=== PATIENT | male | born 1985 | race Caucasian/White ===

== ENCOUNTER 2019-02-07 20:57 | Inpatient (IN) | payer BC ==
[~2019-02-07 20:57] MED LIST: MVI, Adult with Vitamin K 10 ML, Folic Acid 1 MG, Thiamine 100 MG in Lactated Ringers 1... IV ONE
--- NOTE | 2019-02-07 20:59 | EDM.PDOC ---
ED HPI GENERAL MEDICAL PROBLEM - General Chief Complaint: Drug or Alcohol Abuse Stated Complaint: AMBULANCE Time Seen by Provider: 02/07/19 20:45 Source of Information: Reports: Patient History Limitations: Reports: No Limitations - History of Present Illness INITIAL COMMENTS - FREE TEXT/NARRATIVE: This 33 yo male patient was brought to the ED by [facility] due to passing out in his bathroom (according to the patient). EMS was advised that the patient did pass out, but also may have had a seizure while on the floor. The patient reports he stopped drinking last week and has been going through withdrawals since that time. The patient reports he was started on some anxiety pills within the past week. The patient reports since he stopped drinking he has been feeling very weak with no energy. The patient reports he has not had anything to eat in the past 2 days. The patient reports no current pain or problems. Onset: Today Duration: Minutes:, Improving Location: Reports: Generalized Quality: Reports: Other Severity: Moderate Improves with: Reports: None Worsens with: Reports: None Context: Reports: Other Associated Symptoms: Reports: Weakness Treatments ASSURANCE ASSOCIATE: Reports: IV/IO - Related Data Allergies Allergy/AdvReac Type Severity Reaction Status Date / Time No Known Allergies Allergy Verified 02/07/19 20:34 Home Meds: Home Meds ALPRAZolam [Alprazolam] 0.5 mg PO TID PRN 02/07/19 [History] Venlafaxine HCl [Venlafaxine ER] 75 mg PO DAILY 02/07/19 [History] Past Medical History - Past Surgical History Other GI Surgeries/Procedures: Colitis and colon surgery Social & Family History - Tobacco Use Smoking Status *Q: Never Smoker Second Hand Smoke Exposure: No - Caffeine Use Caffeine Use: Reports: Coffee - Alcohol Use Date of Last Drink: 01/31/19 - Recreational Drug Use Recreational Drug Use: No ED ROS GENERAL - Review of Systems Review Of Systems: ROS reveals no pertinent complaints other than HPI. ED EXAM, GENERAL - Physical Exam Exam: See Below Exam Limited By: No Limitations General Appearance: Alert, WD/WN, Mild Distress Eye Exam: Bilateral Eye: EOMI, Normal Inspection, PERRL Ears: Normal External Exam, Normal Canal, Hearing Grossly Normal, Normal TMs Nose: Other (dried blood from right nare) Throat/Mouth: Other (Wounds on the lateral margins of the tongue with no current bleeding) Head: Atraumatic, Normocephalic Neck: Normal Inspection, Supple, Non-Tender, Full Range of Motion Respiratory/Chest: No Respiratory Distress, Lungs Clear, Normal Breath Sounds, No Accessory Muscle Use, Chest Non-Tender Cardiovascular: Normal Peripheral Pulses, Regular Rate, Rhythm, No Edema, No Gallop, No JVD, No Murmur, No Rub GI/Abdominal: Normal Bowel Sounds, Soft, Non-Tender, No Organomegaly, No Distention, No Abnormal Bruit, No Mass (Male) Exam: Deferred Rectal (Males) Exam: Deferred Back Exam: Normal Inspection, Full Range of Motion, NT Extremities: Normal Inspection, Normal Range of Motion, Non-Tender, Normal Capillary Refill, No Pedal Edema Neurological: Alert, Oriented, CN II-XII Intact, Normal Cognition, Normal Gait, Normal Reflexes, No Motor/Sensory Deficits Psychiatric: Normal Affect, Normal Mood Skin Exam: Warm, Dry, Intact, Normal Color, No Rash Lymphatic: No Adenopathy Course - Vital Signs Last Recorded V/S: Last Vital Signs Temp 36.8 C 02/07/19 20:28 Pulse 106 H 02/07/19 20:28 Resp 23 H 02/07/19 20:28 BP 128/82 02/07/19 20:28 Pulse Ox 100 02/07/19 20:28 - Orders/Labs/Meds Labs: Laboratory Tests 02/07/19 02/07/19 02/07/19 Range/Units 21:05 21:05 21:05 WBC 6.6 (5.0-10.0) 10^3/uL RBC 5.45 (4.6-6.2) 10^6/uL Hgb 16.6 (14.0-18.0) g/dL Hct 47.0 (40.0-54.0) % MCV 86.2 (80-100) fL MCH 30.5 (27.0-34.0) pg MCHC 35.3 H (33.0-35.0) g/dL Plt Count 103 L (150-450) 10^3/uL Neut % (Auto) 89.7 H (42.2-75.2) % Lymph % (Auto) 2.6 L (20.5-50.1) % [place] % (Auto) 7.2 (2-8) % Eos % (Auto) 0.2 L (1.0-3.0) % Baso % (Auto) 0.3 (0.0-1.0) % Sodium (135-145) mmol/L Potassium (3.6-5.0) mmol/L Chloride (101-111) mmol/L Carbon Dioxide (21.0-31.0) mmol/L Anion Gap BUN (7-18) mg/dL Creatinine (0.6-1.3) mg/dL Est Cr Clr Drug Dosing mL/min Estimated GFR (MDRD) BUN/Creatinine Ratio Glucose (74-105) mg/dL Calcium (8.4-10.2) mg/dl Magnesium 2.1 (1.8-2.5) mg/dL Total Bilirubin (0.2-1.0) mg/dL AST (10-42) IU/L ALT (10-60) IU/L Alkaline Phosphatase (42-121) IU/L Ammonia 97 H (11-35) umol/L Total Protein (6.7-8.2) g/dl Albumin (3.2-5.5) g/dl Globulin Albumin/Globulin Ratio /05/21 Range/Units 21:05 WBC (5.0-10.0) 10^3/uL RBC (4.6-6.2) 10^6/uL Hgb (14.0-18.0) g/dL Hct (40.0-54.0) % MCV (80-100) fL MCH (27.0-34.0) pg MCHC (33.0-35.0) g/dL Plt Count (150-450) 10^3/uL Neut % (Auto) (42.2-75.2) % Lymph % (Auto) (20.5-50.1) % [place] % (Auto) (2-8) % Eos % (Auto) (1.0-3.0) % Baso % (Auto) (0.0-1.0) % Sodium 135 (135-145) mmol/L Potassium 3.7 (3.6-5.0) mmol/L Chloride 95 L (101-111) mmol/L Carbon Dioxide 18.0 L (21.0-31.0) mmol/L Anion Gap 25.7 BUN 12 (7-18) mg/dL Creatinine 1.1 (0.6-1.3) mg/dL Est Cr Clr Drug Dosing 110.02 mL/min Estimated GFR (MDRD) > 60 BUN/Creatinine Ratio 10.90 Glucose 180 H (74-105) mg/dL Calcium 9.3 (8.4-10.2) mg/dl Magnesium (1.8-2.5) mg/dL Total Bilirubin 3.4 H (0.2-1.0) mg/dL AST 366 H (10-42) IU/L ALT 121 H (10-60) IU/L Alkaline Phosphatase 103 (42-121) IU/L Ammonia (11-35) umol/L Total Protein 8.6 H (6.7-8.2) g/dl Albumin 4.4 (3.2-5.5) g/dl Globulin 4.2 Albumin/Globulin Ratio 1.05 Meds: Medications Discontinued Medications Generic Name Dose Route Start Last Admin Trade Name Freq PRN Reason Stop Dose Admin Multivitamins/Minerals 10 ml/ 1,011.2 mls @ 999 mls/hr 02/07/19 20:52 21:03 Folic Acid 1 mg/ Thiamine HCl IV 02/07/19 21:52 999 mls/hr 100 mg/ Lactated Ringer's ONETIME ONE Administration Lactulose 20 gm 02/07/19 22:00 Cephulac PO 02/07/19 22:01 ONETIME ONE Lorazepam 1 mg 02/07/19 22:00 Ativan IVPUSH 02/07/19 22:01 ONETIME ONE Departure - Departure Time of Disposition: 22:03 Disposition: Admitted As Inpatient 65 Condition: Fair Clinical Impression: Alcohol withdrawal delirium, Serum ammonia increased - Discharge Information *PRESCRIPTION DRUG MONITORING PROGRAM REVIEWED*: Not Applicable *COPY OF PRESCRIPTION DRUG MONITORING REPORT IN PATIENT RUDDY: Not Applicable Care Plan Goals: Discussed the patient's history, examination and lab results with Dr. Fierro. Dr. Fierro accepted the patient for continued treatment and evaluation as an inpatient at [facility]. The patient was given a Banana Bag , IV Ativan and an oral dose of lactulose prior to admission.
[2019-02-07 21:37] LABS: ANION GAP 25.7; CHLORIDE,CL 95 mmol/L (101-111); SODIUM,NA 135 mmol/L (135-145)
[2019-02-07] MEDS ORDERED: LORazepam 2 MG/ML Syringe IVPUSH ONE (22:00)
[2019-02-07] MEDS ORDERED: Lactulose Soln 10 GM/15 ML 30 ML UD Cup PO ONE (22:00)
[2019-02-07] MEDS ORDERED: Ondansetron 4 MG Tab.DIS PO PRN (22:58)
[2019-02-07] MEDS ORDERED: Acetaminophen 325 MG Tab PO PRN (22:58)
[2019-02-07] MEDS ORDERED: Ibuprofen 400 MG Tab PO PRN (22:58)
[2019-02-07] MEDS ORDERED: Sodium Chloride 0.9% 10 ML Syringe FLUSH PRN (22:58)
--- NOTE | 2019-02-07 23:09 | PCM.HP ---
H&P History of Present Illness - General Date of Service: 02/07/19 Admit Problem/Dx: Admission Diagnosis/Problem Admission Diagnosis/Problem Alcohol withdrawal seizure - History of Present Illness Initial Comments - Free Text/Narative: 33-year-old gentleman with a history of anxiety. The patient has been drinking heavily for months. Has been mostly drinking rum. The patient decided to quit alcohol use 3 days prior to this admission. He has been developing shaking, anxiety, tremor, poor appetite. On the day of admission the patient was noted to have a fall and had tonic- clonic witnessed seizure. This lasted for minutes. The patient abated the tongue. Complaining of the shoulder pain on the left side. The patient was taken to the emergency room. - Related Data Allergies/Adverse Reactions: Allergies Allergy/AdvReac Type Severity Reaction Status Date / Time No Known Allergies Allergy Verified 02/07/19 20:34 Home Medications: Home Meds ALPRAZolam [Alprazolam] 0.5 mg PO TID PRN 02/07/19 [History] Venlafaxine HCl [Venlafaxine ER] 75 mg PO DAILY 02/07/19 [History] Past Medical History - Past Surgical History Other GI Surgeries/Procedures: Colitis and colon surgery Social & Family History - Tobacco Use Smoking Status *Q: Never Smoker Second Hand Smoke Exposure: No - Caffeine Use Caffeine Use: Reports: Coffee - Alcohol Use Date of Last Drink: 01/31/19 - Recreational Drug Use Recreational Drug Use: No H&P Review of Systems - Review of Systems: Review Of Systems: See Below General: Reports: Malaise, Weakness. Denies: Fever, Chills Pulmonary: Denies: Shortness of Breath Cardiovascular: Denies: Chest Pain Gastrointestinal: Reports: Anorexia. Denies: Abdominal Pain Genitourinary: Denies: Dysuria Musculoskeletal: Reports: Shoulder Pain (Left side) Skin: Reports: Other (Sweating) Psychiatric: Reports: Anxiety. Denies: Hallucinations Neurological: Reports: Seizure, Tremors Exam - Exam Exam: See Below - Vital Signs Vital Signs: Last Vital Signs Temp 36.8 C 02/07/19 22:44 Pulse 108 H 02/07/19 22:44 Resp 20 02/07/19 22:44 BP 163/104 H 02/07/19 22:44 Pulse Ox 96 02/07/19 22:44 Weight: 83.688 kg - Exam General: Alert, Oriented HEENT: Other (Hematoma on tongue) Neck: Supple Lungs: Clear to Auscultation, Normal Respiratory Effort Cardiovascular: Regular Rate, Regular Rhythm GI/Abdominal Exam: Normal Bowel Sounds, Soft, Non-Tender Extremities: No Pedal Edema Skin: Warm, Other Neurological: Strength Equal Bilateral, Normal Speech. No: Focal Deficit Neuro Extensive - Mental Status: Alert, Oriented x3 (Sweaty) Neuro Extensive - Motor, Sensory, Reflexes: Tremor (Bilateral upper extremities) Psychiatric: Alert, Anxious. No: Agitated - Patient Data Lab Results Last 24 hrs: Laboratory Results - last 24 hr 02/07/19 02/07/19 02/07/19 Range/Units 21:05 21:05 21:05 WBC 6.6 (5.0-10.0) 10^3/uL RBC 5.45 (4.6-6.2) 10^6/uL Hgb 16.6 (14.0-18.0) g/dL Hct 47.0 (40.0-54.0) % MCV 86.2 (80-100) fL MCH 30.5 (27.0-34.0) pg MCHC 35.3 H (33.0-35.0) g/dL Plt Count 103 L (150-450) 10^3/uL Neut % (Auto) 89.7 H (42.2-75.2) % Lymph % (Auto) 2.6 L (20.5-50.1) % [place] % (Auto) 7.2 (2-8) % Eos % (Auto) 0.2 L (1.0-3.0) % Baso % (Auto) 0.3 (0.0-1.0) % Sodium (135-145) mmol/L Potassium (3.6-5.0) mmol/L Chloride (101-111) mmol/L Carbon Dioxide (21.0-31.0) mmol/L Anion Gap BUN (7-18) mg/dL Creatinine (0.6-1.3) mg/dL Est Cr Clr Drug Dosing mL/min Estimated GFR (MDRD) BUN/Creatinine Ratio Glucose (74-105) mg/dL Calcium (8.4-10.2) mg/dl Magnesium 2.1 (1.8-2.5) mg/dL Total Bilirubin (0.2-1.0) mg/dL AST (10-42) IU/L ALT (10-60) IU/L Alkaline Phosphatase (42-121) IU/L Ammonia 97 H (11-35) umol/L Total Protein (6.7-8.2) g/dl Albumin (3.2-5.5) g/dl Globulin Albumin/Globulin Ratio 02/07/19 Range/Units 21:05 WBC (5.0-10.0) 10^3/uL RBC (4.6-6.2) 10^6/uL Hgb (14.0-18.0) g/dL Hct (40.0-54.0) % MCV (80-100) fL MCH (27.0-34.0) pg MCHC (33.0-35.0) g/dL Plt Count (150-450) 10^3/uL Neut % (Auto) (42.2-75.2) % Lymph % (Auto) (20.5-50.1) % [place] % (Auto) (2-8) % Eos % (Auto) (1.0-3.0) % Baso % (Auto) (0.0-1.0) % Sodium 135 (135-145) mmol/L Potassium 3.7 (3.6-5.0) mmol/L Chloride 95 L (101-111) mmol/L Carbon Dioxide 18.0 L (21.0-31.0) mmol/L Anion Gap 25.7 BUN 12 (7-18) mg/dL Creatinine 1.1 (0.6-1.3) mg/dL Est Cr Clr Drug Dosing 110.02 mL/min Estimated GFR (MDRD) > 60 BUN/Creatinine Ratio 10.90 Glucose 180 H (74-105) mg/dL Calcium 9.3 (8.4-10.2) mg/dl Magnesium (1.8-2.5) mg/dL Total Bilirubin 3.4 H (0.2-1.0) mg/dL AST 366 H (10-42) IU/L ALT 121 H (10-60) IU/L Alkaline Phosphatase 103 (42-121) IU/L Ammonia (11-35) umol/L Total Protein 8.6 H (6.7-8.2) g/dl Albumin 4.4 (3.2-5.5) g/dl Globulin 4.2 Albumin/Globulin Ratio 1.05 Result Diagrams: 02/07/19 21:05 02/07/19 21:05 - Problem List (1) Alcohol withdrawal delirium SNOMED Code(s): 9348854 ICD Code: F10.231 - ALCOHOL DEPENDENCE WITH WITHDRAWAL DELIRIUM Status: Acute Current Visit: No (2) Serum ammonia increased SNOMED Code(s): 9275914 ICD Code: E72.20 - DISORDER OF UREA CYCLE METABOLISM, UNSPECIFIED Status: Acute Current Visit: No Problem List Initiated/Reviewed/Updated: Yes Orders Last 24hrs: Active Orders 24 hr Category Date Time Status Patient Status [ADT] Routine ADT 02/07/19 22:58 Ordered Antiembolic Devices [RC] PER UNIT ROUTINE Care 02/07/19 23:00 Ordered Oxygen Therapy [RC] PRN Care 02/07/19 22:58 Ordered Peripheral IV Care [RC] . DIRECTED Care 02/07/19 23:00 Ordered Up With Assistance [RC] ASDIRECTED Care 02/07/19 22:58 Ordered VTE/DVT Education [RC] PER UNIT ROUTINE Care 02/07/19 22:58 Ordered Vital Signs [RC] Q4H Care 02/07/19 22:58 Ordered Regular Diet [DIET] Diet 02/07/19 Breakfast Ordered Head wo Cont [CT] Routine Exams 02/07/19 22:54 Ordered Shoulder Comp Lt [CR] Routine Exams 02/07/19 23:03 Ordered AMMONIA VENOUS [CHEM] AM Lab 02/08/19 05:11 Ordered BASIC METABOLIC PANEL,BMP [CHEM] AM Lab 02/08/19 05:15 Ordered CBC WITH AUTO DIFF [HEME] AM Lab 02/08/19 05:15 Ordered HEPATIC FUNCTION PANEL,HFP [CHEM] AM Lab 02/08/19 05:11 Ordered Acetaminophen [Tylenol] Med 02/07/19 22:58 Ordered 650 mg PO Q4H PRN Dextrose 5%-Normal Saline with KCl 20 mEq @ 150 mL/Hr ( Med 02/07/19 23:00 Ordered 1000 mL) Dextrose 5%-0.9% NaCl with KCl [D5 NS with 20 mEq KCl] 1,000 ml IV ASDIRECTED Heparin Sodium Med 02/08/19 06:00 Ordered 5,000 units SUBCUT Q8HR Ibuprofen [Motrin] Med 02/07/19 22:58 Ordered 400 mg PO Q6H PRN LORazepam [Ativan] Med 02/07/19 22:56 Ordered See Protocol IVPUSH ASDIRECTED PRN LORazepam [Ativan] Med 02/07/19 22:57 Ordered See Protocol PO Q1H PRN Lactulose [Cephulac] Med 02/08/19 09:00 Ordered 20 gm PO TID MVI, Adult with Vitamin K [Infuvite Adult] 10 ml Med 02/08/19 09:00 Ordered Folic Acid 1 mg Thiamine [Vitamin B-1] 100 mg Lactated Ringers [Ringers, Lactated] 1,000 ml IV DAILY Ondansetron [Zofran ODT] Med 02/07/19 22:58 Ordered 4 mg PO Q4H PRN Ondansetron [Zofran] Med 02/07/19 22:58 Ordered 4 mg IVPUSH Q4H PRN Sodium Chloride 0.9% [Saline Flush] Med 02/07/19 22:58 Ordered 10 ml FLUSH ASDIRECTED PRN Venlafaxine [Effexor XR] Med 02/08/19 09:00 Ordered 75 mg PO DAILY Antiembolic Hose [OM.PC] Per Unit Routine Oth 02/07/19 22:59 Ordered Peripheral IV Insertion Adult [OM.PC] Routine Oth 02/07/19 22:58 Ordered Seizure Precautions [OM.PC] Routine Oth 02/07/19 22:56 Ordered Resuscitation Status Routine Resus Stat 02/07/19 22:58 Ordered Medication Orders Acetaminophen (Tylenol) 650 mg PO Q4H PRN PRN Reason: Pain (Mild 1-3)/fever Heparin Sodium (Porcine) (Heparin Sodium) 5,000 units SUBCUT Q8HR DESIREE Multivitamins/Minerals 10 ml/Folic Acid 1 mg/ Thiamine HCl 100 mg/ Lactated Ringer's 1,011.2 mls @ 999 mls/hr IV DAILY ONE Stop: 02/08/19 10:00 Potassium Chloride/Dextrose/Sod Cl (D5 Ns With 20 Meq Kcl) 1,000 mls @ 150 mls/ hr IV ASDIRECTED DESIREE Ibuprofen (Motrin) 400 mg PO Q6H PRN PRN Reason: Pain (moderate 4-6) Lactulose (Cephulac) 20 gm PO TID DESIREE Lorazepam (Ativan) 0 mg IVPUSH ASDIRECTED PRN; Protocol PRN Reason: Withdrawal Symptoms Lorazepam (Ativan) 0 mg PO Q1H PRN; Protocol PRN Reason: alcohol withdrawal Ondansetron HCl (Zofran Odt) 4 mg PO Q4H PRN PRN Reason: nausea, able to take PO Ondansetron HCl (Zofran) 4 mg IVPUSH Q4H PRN PRN Reason: Nausea/Vomiting Sodium Chloride (Saline Flush) 10 ml FLUSH ASDIRECTED PRN PRN Reason: Keep Vein Open Venlafaxine HCl (Effexor Xr) 75 mg PO DAILY DESIREE Assessment/Plan Comment:: 33-year-old gentleman with the history of anxiety, heavy drinking. The patient stopped drinking. 3 days after this the patient presented with the seizure, tremors This is likely secondary to alcohol withdrawal We'll use seizure precaution CT of the head to evaluate for possible bleed Use Ativan per CIWA protocol Hydrate well Follow electrolytes Obtain x-ray of the left shoulder to evaluate for injury Chronic alcohol use We'll give thiamine, folate, multivitamin Elevated liver enzymes Secondary to all chronic hepatitis Hydrate well Recheck liver enzymes in the morning Elevated ammonia level Likely secondary to alcohol use given lactulose Recheck in the morning Discussed alcohol treatment options with the patient DVT prophylaxis with subcutaneous heparin if no bleeding on the head CT
[2019-02-07] MEDS: LORazepam 2 MG/ML Syringe IVPUSH PRN (23:11)
[2019-02-07] MEDS: Dextrose 5%-0.9% NaCl with KCl 1,000 ML IV SCH (23:12)
[2019-02-08] MEDS: LORazepam 2 MG/ML Syringe IVPUSH PRN ×6 (01:53→23:23)
[2019-02-08] MEDS: Heparin Sodium 5,000 Units/ML Vial SUBCUT SCH ×3 (05:34→21:37)
[2019-02-08] MEDS: Dextrose 5%-0.9% NaCl with KCl 1,000 ML IV SCH ×3 (06:28→20:46)
[2019-02-08 06:42] LABS: ANION GAP 18.5; CHLORIDE,CL 99 mmol/L (101-111); SODIUM,NA 136 mmol/L (135-145)
[2019-02-08] MEDS ORDERED: MVI, Adult with Vitamin K 10 ML, Folic Acid 1 MG, Thiamine 100 MG in Lactated Ringers 1... IV ONE ×4 (09:00)
[2019-02-08] MEDS: Lactulose Soln 10 GM/15 ML 30 ML UD Cup PO SCH ×3 (09:11→20:30)
[2019-02-08] MEDS: Venlafaxine 37.5 MG Cap.ER PO SCH (09:11)
--- NOTE | 2019-02-08 10:56 | PCM.PN ---
- General Info Date of Service: 02/08/19 Subjective Update: Overnight remained stable but continued to have from tremors, sweating, anxiety. Symptoms improved with Ativan. No vomiting but poor oral intake. - Review of Systems General: Reports: Weakness. Denies: Fever Pulmonary: Denies: Shortness of Breath Cardiovascular: Denies: Chest Pain Gastrointestinal: Denies: Abdominal Pain Neurological: Reports: Tremors, Weakness Psychiatric: Reports: Hallucinations - Patient Data Vitals - Most Recent: Last Vital Signs Temp 36.3 C 02/08/19 08:20 Pulse 104 H 02/08/19 08:20 Resp 16 02/08/19 08:20 BP 161/99 H 02/08/19 08:20 Pulse Ox 98 02/08/19 08:20 Weight - Most Recent: 83.688 kg I&O - Last 24 Hours: Intake & Output 02/07/19 02/08/19 02/08/19 22:59 06:59 14:59 Intake Total 1617 Output Total 250 Balance 1367 Lab Results Last 24 Hours: Laboratory Results - last 24 hr 02/07/19 02/07/19 02/07/19 Range/Units 21:05 21:05 21:05 WBC 6.6 (5.0-10.0) 10^3/uL RBC 5.45 (4.6-6.2) 10^6/uL Hgb 16.6 (14.0-18.0) g/dL Hct 47.0 (40.0-54.0) % MCV 86.2 (80-100) fL MCH 30.5 (27.0-34.0) pg MCHC 35.3 H (33.0-35.0) g/dL Plt Count 103 L (150-450) 10^3/uL Neut % (Auto) 89.7 H (42.2-75.2) % Lymph % (Auto) 2.6 L (20.5-50.1) % Evangeline % (Auto) 7.2 (2-8) % Eos % (Auto) 0.2 L (1.0-3.0) % Baso % (Auto) 0.3 (0.0-1.0) % Sodium (135-145) mmol/L Potassium (3.6-5.0) mmol/L Chloride (101-111) mmol/L Carbon Dioxide (21.0-31.0) mmol/L Anion Gap BUN (7-18) mg/dL Creatinine (0.6-1.3) mg/dL Est Cr Clr Drug Dosing mL/min Estimated GFR (MDRD) BUN/Creatinine Ratio Glucose (74-105) mg/dL Calcium (8.4-10.2) mg/dl Magnesium 2.1 (1.8-2.5) mg/dL Total Bilirubin (0.2-1.0) mg/dL Direct Bilirubin (0.0-0.2) mg/dL Indirect Bilirubin AST (10-42) IU/L ALT (10-60) IU/L Alkaline Phosphatase (42-121) IU/L Ammonia 97 H (11-35) umol/L Total Protein (6.7-8.2) g/dl Albumin (3.2-5.5) g/dl Globulin Albumin/Globulin Ratio 02/07/19 02/08/19 02/08/19 Range/Units 21:05 06:00 06:00 WBC (5.0-10.0) 10^3/uL RBC (4.6-6.2) 10^6/uL Hgb (14.0-18.0) g/dL Hct (40.0-54.0) % MCV (80-100) fL MCH (27.0-34.0) pg MCHC (33.0-35.0) g/dL Plt Count (150-450) 10^3/uL Neut % (Auto) (42.2-75.2) % Lymph % (Auto) (20.5-50.1) % Evangeline % (Auto) (2-8) % Eos % (Auto) (1.0-3.0) % Baso % (Auto) (0.0-1.0) % Sodium 135 136 (135-145) mmol/L Potassium 3.7 3.5 L (3.6-5.0) mmol/L Chloride 95 L 99 L (101-111) mmol/L Carbon Dioxide 18.0 L 22.0 (21.0-31.0) mmol/L Anion Gap 25.7 18.5 BUN 12 15 (7-18) mg/dL Creatinine 1.1 1.1 (0.6-1.3) mg/dL Est Cr Clr Drug Dosing 110.02 110.02 mL/min Estimated GFR (MDRD) > 60 > 60 BUN/Creatinine Ratio 10.90 Glucose 180 H 140 H (74-105) mg/dL Calcium 9.3 8.7 (8.4-10.2) mg/dl Magnesium (1.8-2.5) mg/dL Total Bilirubin 3.4 H 2.7 H (0.2-1.0) mg/dL Direct Bilirubin 1.1 H (0.0-0.2) mg/dL Indirect Bilirubin 1.6 AST 366 H 306 H (10-42) IU/L ALT 121 H 109 H (10-60) IU/L Alkaline Phosphatase 103 98 (42-121) IU/L Ammonia 75 H (11-35) umol/L Total Protein 8.6 H 7.7 (6.7-8.2) g/dl Albumin 4.4 4.3 (3.2-5.5) g/dl Globulin 4.2 3.4 Albumin/Globulin Ratio 1.05 1.26 02/08/19 Range/Units 06:00 WBC 6.7 (5.0-10.0) 10^3/uL RBC 5.23 (4.6-6.2) 10^6/uL Hgb 15.9 (14.0-18.0) g/dL Hct 45.9 (40.0-54.0) % MCV 87.8 (80-100) fL MCH 30.4 (27.0-34.0) pg MCHC 34.6 (33.0-35.0) g/dL Plt Count 101 L (150-450) 10^3/uL Neut % (Auto) 79.7 H (42.2-75.2) % Lymph % (Auto) 5.3 L (20.5-50.1) % Evangeline % (Auto) 14.9 H (2-8) % Eos % (Auto) 0.0 L (1.0-3.0) % Baso % (Auto) 0.1 (0.0-1.0) % Sodium (135-145) mmol/L Potassium (3.6-5.0) mmol/L Chloride (101-111) mmol/L Carbon Dioxide (21.0-31.0) mmol/L Anion Gap BUN (7-18) mg/dL Creatinine (0.6-1.3) mg/dL Est Cr Clr Drug Dosing mL/min Estimated GFR (MDRD) BUN/Creatinine Ratio Glucose (74-105) mg/dL Calcium (8.4-10.2) mg/dl Magnesium (1.8-2.5) mg/dL Total Bilirubin (0.2-1.0) mg/dL Direct Bilirubin (0.0-0.2) mg/dL Indirect Bilirubin AST (10-42) IU/L ALT (10-60) IU/L Alkaline Phosphatase (42-121) IU/L Ammonia (11-35) umol/L Total Protein (6.7-8.2) g/dl Albumin (3.2-5.5) g/dl Globulin Albumin/Globulin Ratio Med Orders - Current: Current Medications Acetaminophen (Tylenol) 650 mg PO Q4H PRN PRN Reason: Pain (Mild 1-3)/fever Heparin Sodium (Porcine) (Heparin Sodium) 5,000 units SUBCUT Q8HR [facility] Last Admin: 02/08/19 05:34 Dose: 5,000 units Potassium Chloride/Dextrose/Sod Cl (D5 Ns With 20 Meq Kcl) 1,000 mls @ 150 mls/ hr IV ASDIRECTED [facility] Last Admin: 02/08/19 06:28 Dose: 150 mls/hr Ibuprofen (Motrin) 400 mg PO Q6H PRN PRN Reason: Pain (moderate 4-6) Lactulose (Cephulac) 20 gm PO TID [facility] Last Admin: 02/08/19 09:11 Dose: 20 gm Lorazepam (Ativan) 0 mg IVPUSH ASDIRECTED PRN; Protocol PRN Reason: Withdrawal Symptoms Last Admin: 02/08/19 10:05 Dose: 2 mg Lorazepam (Ativan) 0 mg PO Q1H PRN; Protocol PRN Reason: alcohol withdrawal Ondansetron HCl (Zofran Odt) 4 mg PO Q4H PRN PRN Reason: nausea, able to take PO Ondansetron HCl (Zofran) 4 mg IVPUSH Q4H PRN PRN Reason: Nausea/Vomiting Pantoprazole Sodium (Protonix) 40 mg PO ACBREAKFAST [facility] Potassium Chloride (Klor-Con 10) 40 meq PO ONETIME ONE Stop: 02/08/19 11:01 Sodium Chloride (Saline Flush) 10 ml FLUSH ASDIRECTED PRN PRN Reason: Keep Vein Open Venlafaxine HCl (Effexor Xr) 75 mg PO DAILY [facility] Last Admin: 02/08/19 09:11 Dose: 75 mg Discontinued Medications Multivitamins/Minerals 10 ml/Folic Acid 1 mg/ Thiamine HCl 100 mg/ Lactated Ringer's 1,011.2 mls @ 999 mls/hr IV ONETIME ONE Stop: 02/07/19 21:52 Last Admin: 02/07/19 21:03 Dose: 999 mls/hr Multivitamins/Minerals 10 ml/Folic Acid 1 mg/ Thiamine HCl 100 mg/ Lactated Ringer's 1,011.2 mls @ 999 mls/hr IV DAILY ONE Stop: 02/08/19 10:00 Last Admin: 02/08/19 09:12 Dose: 999 mls/hr Lactulose (Cephulac) 20 gm PO ONETIME ONE Stop: 02/07/19 22:01 Last Admin: 02/07/19 22:06 Dose: 20 gm Lorazepam (Ativan) 1 mg IVPUSH ONETIME ONE Stop: 02/07/19 22:01 Last Admin: 02/07/19 22:06 Dose: 1 mg - Exam General: Alert, Oriented Neck: Supple Lungs: Clear to Auscultation, Normal Respiratory Effort Cardiovascular: Regular Rate, Regular Rhythm GI/Abdominal Exam: Normal Bowel Sounds, Soft, Non-Tender Extremities: No Pedal Edema Skin: Warm Neurological: No New Focal Deficit, Other (Tremors) Psy/Mental Status: Alert, Anxious - Problem List & Annotations (1) Alcohol withdrawal delirium SNOMED Code(s): 4785714 Code(s): F10.231 - ALCOHOL DEPENDENCE WITH WITHDRAWAL DELIRIUM Status: Acute Current Visit: No (2) Serum ammonia increased SNOMED Code(s): 2933884 Code(s): E72.20 - DISORDER OF UREA CYCLE METABOLISM, UNSPECIFIED Status: Acute Current Visit: No - Problem List Review Problem List Initiated/Reviewed/Updated: Yes - My Orders Last 24 Hours: My Active Orders 02/07/19 22:56 LORazepam [Ativan] See Protocol IVPUSH ASDIRECTED PRN Seizure Precautions [OM.PC] Routine 02/07/19 22:57 LORazepam [Ativan] See Protocol PO Q1H PRN 02/07/19 22:58 Patient Status [ADT] Routine Oxygen Therapy [RC] PRN Up With Assistance [RC] ASDIRECTED VTE/DVT Education [RC] PER UNIT ROUTINE Vital Signs [RC] Q4H Acetaminophen [Tylenol] 650 mg PO Q4H PRN Ibuprofen [Motrin] 400 mg PO Q6H PRN Ondansetron [Zofran ODT] 4 mg PO Q4H PRN Ondansetron [Zofran] 4 mg IVPUSH Q4H PRN Sodium Chloride 0.9% [Saline Flush] 10 ml FLUSH ASDIRECTED PRN Peripheral IV Insertion Adult [OM.PC] Routine Resuscitation Status Routine 02/07/19 22:59 Antiembolic Hose [OM.PC] Per Unit Routine 02/07/19 23:00 Antiembolic Devices [RC] PER UNIT ROUTINE Peripheral IV Care [RC] 09,21 Dextrose 5%-0.9% NaCl with KCl [D5 NS with 20 mEq KCl] 1,000 ml IV ASDIRECTED 02/08/19 06:00 Heparin Sodium 5,000 units SUBCUT Q8HR 02/08/19 09:00 Lactulose [Cephulac] 20 gm PO TID Venlafaxine [Effexor XR] 75 mg PO DAILY 02/08/19 10:48 Potassium Chloride [Klor-Con 10] 40 meq PO ONETIME ONE 02/08/19 10:53 HEPATIC FUNCTION PANEL,HFP [CHEM] Routine 02/08/19 11:00 Pantoprazole [ProTONIX] 40 mg PO ACBREAKFAST 02/09/19 05:11 MAGNESIUM [CHEM] AM PHOSPHORUS [CHEM] AM 02/09/19 05:15 BASIC METABOLIC PANEL,BMP [CHEM] AM CBC WITH AUTO DIFF [HEME] AM - Plan Plan:: 33-year-old gentleman with the history of anxiety, heavy drinking. The patient stopped drinking. 3 days after this the patient presented with the seizure, tremors This is likely secondary to alcohol withdrawal We'll use seizure precaution CT of the head to evaluate for possible bleed was negative Use Ativan per CIWA protocol Hydrate well Follow electrolytes Obtained x-ray of the left shoulder to evaluate for injury was negative Chronic alcohol use We'll give thiamine, folate, multivitamin Elevated liver enzymes Secondary to alcoholic hepatitis Hydrate well Follow liver enzymes in the morning Elevated ammonia level Likely secondary to alcohol use Improving Continue lactulose Discussed alcohol treatment options with the patient DVT prophylaxis with subcutaneous heparin
[2019-02-08] MEDS ORDERED: Potassium Chloride 10 MEQ Tab.ER PO ONE (11:00)
[2019-02-08] MEDS: Pantoprazole 40 MG Tab.CR PO SCH (12:01)
[2019-02-08] MEDS: Ondansetron 4 MG/2 ML SDV IVPUSH PRN ×2 (17:03→23:20)
[2019-02-08] MEDS: LORazepam 1 MG Tab PO PRN (20:30)
[2019-02-08] MEDS: cloNIDine 0.1 MG Tab PO SCH (20:44)
[2019-02-09] MEDS: LORazepam 1 MG Tab PO PRN ×2 (00:57→03:21)
[2019-02-09] MEDS: Dextrose 5%-0.9% NaCl with KCl 1,000 ML IV SCH ×2 (03:22→10:21)
[2019-02-09] MEDS: LORazepam 2 MG/ML Syringe IVPUSH PRN ×7 (04:21→15:43)
[2019-02-09] MEDS: Pantoprazole 40 MG Tab.CR PO SCH (05:08)
[2019-02-09] MEDS: Heparin Sodium 5,000 Units/ML Vial SUBCUT SCH ×3 (05:09→16:24)
[2019-02-09 06:48] LABS: CHLORIDE,CL 104 mmol/L (101-111); SODIUM,NA 137 mmol/L (135-145)
[2019-02-09] MEDS: cloNIDine 0.1 MG Tab PO SCH ×2 (07:54→08:02)
[2019-02-09] MEDS: Venlafaxine 37.5 MG Cap.ER PO SCH ×2 (07:55→08:03)
[2019-02-09] MEDS: Lactulose Soln 10 GM/15 ML 30 ML UD Cup PO SCH ×3 (07:55→13:41)
[2019-02-09] MEDS ORDERED: Phosphorus #1 250 MG Tab PO SCH (13:00)
--- NOTE | 2019-02-09 15:31 | PCM.DCSUM1 ---
Discharge Summary - Hospital Course Free Text/Narrative:: 33-year-old gentleman with a history of anxiety. The patient has been drinking heavily for months. Has been mostly drinking rum. The patient decided to quit alcohol use 3 days prior to this admission. He has been developing shaking, anxiety, tremor, poor appetite. On the day of admission the patient was noted to have a fall and had tonic- clonic witnessed seizure. This lasted for minutes. The patient bit the tongue. seizure, tremors, hallucination This is likely secondary to alcohol withdrawal no further seizure since admission CT of the head to evaluate for possible bleed was negative Has been treated with Ativan per [facility] protocol Hydrated with IV fluids Electrolytes replaced Obtained x-ray of the left shoulder to evaluate for injury was negative Chronic alcohol use We'll give thiamine, folate, multivitamin Elevated liver enzymes Secondary to alcoholic hepatitis Hydrate well Elevated ammonia level Likely secondary to alcohol use Improved Continue lactulose INR was normal, no apparent fulminant liver failure Discussed alcohol treatment options with the patient's Had evaluation by [facility] Plan for transfer to [facility] for comprehensive alcohol treatment program. DVT prophylaxis with subcutaneous heparin Diagnosis: Stroke: No - Discharge Data Discharge Date: 02/09/19 Discharge Disposition: DC/Tfer to Acute Hospital 02 Condition: Fair - Discharge Diagnosis/Problem(s) (1) Alcohol withdrawal delirium SNOMED Code(s): 7257025 ICD Code: F10.231 - ALCOHOL DEPENDENCE WITH WITHDRAWAL DELIRIUM Status: Acute Current Visit: No (2) Serum ammonia increased SNOMED Code(s): 0573422 ICD Code: E72.20 - DISORDER OF UREA CYCLE METABOLISM, UNSPECIFIED Status: Acute Current Visit: No - Patient Instructions Diet: Usual Diet as Tolerated Activity: As Tolerated - Discharge Plan *PRESCRIPTION DRUG MONITORING PROGRAM REVIEWED*: Not Applicable *COPY OF PRESCRIPTION DRUG MONITORING REPORT IN PATIENT RUDDY: Not Applicable Home Medications: Home Meds Venlafaxine HCl [Venlafaxine ER] 75 mg PO DAILY 02/07/19 [History] Dextrose 5%-0.9% NaCl with KCl [D5 NS with 20 mEq KCl] 125 ml IV ASDIRECTED bag 02/09/19 [Rx] Heparin Sodium 5,000 units SUBCUT Q8HR vial 02/09/19 [Rx] LORazepam [Ativan] 0 mg IVPUSH ASDIRECTED PRN syringe 02/09/19 [Rx] LORazepam [Ativan] 0 mg PO Q1H PRN tablet 02/09/19 [Rx] Lactulose [Cephulac] 20 gm PO TID cup 02/09/19 [Rx] Magnesium Oxide 250 mg PO TID tablet 02/09/19 [Rx] Pantoprazole [ProTONIX] 40 mg PO ACBREAKFAST tab.cr 02/09/19 [Rx] Phosphorus #1 [Neutra-Phos] 250 mg PO QID tablet 02/09/19 [Rx] cloNIDine [Catapres] 0.1 mg PO BID tablet 02/09/19 [Rx] Oxygen Therapy Mode: Room Air Patient Handouts: Delirium Tremens, [id number] - Discharge Summary/Plan Comment DC Time >30 min.: Yes (Discussed with [facility] services, , [facility] dr. Lerma) - General Info Date of Service: 02/09/19 Subjective Update: Overnight remained stable but continued to have from tremors, sweating, anxiety. Had visual and auditory hallucinations. Symptoms improved with Ativan. - Review of Systems General: Denies: Fever Pulmonary: Denies: Shortness of Breath Cardiovascular: Denies: Chest Pain Gastrointestinal: Denies: Abdominal Pain Neurological: Reports: Confusion, Tremors, Weakness - Patient Data Vitals - Most Recent: Last Vital Signs Temp 36.4 C 02/09/19 12:00 Pulse 109 H 02/09/19 12:00 Resp 20 02/09/19 12:00 BP 141/105 H 02/09/19 12:00 Pulse Ox 94 L 02/09/19 12:00 Weight - Most Recent: 83.688 kg I&O - Last 24 hours: Intake & Output 02/09/19 02/09/19 02/09/19 06:59 14:59 22:59 Intake Total 3691 400 Balance 3691 400 Lab Results - Last 24 hrs: Laboratory Results - last 24 hr 02/09/19 02/09/19 02/09/19 Range/Units 05:36 05:36 05:36 WBC 4.7 L (5.0-10.0) 10^3/uL RBC 5.11 (4.6-6.2) 10^6/uL Hgb 15.5 (14.0-18.0) g/dL Hct 45.9 (40.0-54.0) % MCV 89.8 (80-100) fL MCH 30.3 (27.0-34.0) pg MCHC 33.8 (33.0-35.0) g/dL Plt Count 101 L (150-450) 10^3/uL Neut % (Auto) 69.7 (42.2-75.2) % Lymph % (Auto) 13.5 L (20.5-50.1) % Cooper % (Auto) 15.8 H (2-8) % Eos % (Auto) 0.8 L (1.0-3.0) % Baso % (Auto) 0.2 (0.0-1.0) % PT (9.0-12.0) SEC INR (0.9-1.2) Sodium 137 (135-145) mmol/L Potassium 4.0 (3.6-5.0) mmol/L Chloride 104 (101-111) mmol/L Carbon Dioxide 20.0 L (21.0-31.0) mmol/L Anion Gap 17.0 BUN 12 (7-18) mg/dL Creatinine 0.8 (0.6-1.3) mg/dL Est Cr Clr Drug Dosing 151.27 mL/min Estimated GFR (MDRD) > 60 Glucose 122 H (74-105) mg/dL Calcium 8.6 (8.4-10.2) mg/dl Phosphorus 1.9 L (2.5-4.6) mg/dL Magnesium 1.7 L (1.8-2.5) mg/dL Total Bilirubin 2.7 H (0.2-1.0) mg/dL Direct Bilirubin 1.1 H (0.0-0.2) mg/dL Indirect Bilirubin 1.6 AST 207 H (10-42) IU/L ALT 91 H (10-60) IU/L Alkaline Phosphatase 78 (42-121) IU/L Total Protein 7.6 (6.7-8.2) g/dl Albumin 3.9 (3.2-5.5) g/dl Globulin 3.7 Albumin/Globulin Ratio 1.05 /07/21 Range/Units 05:36 WBC (5.0-10.0) 10^3/uL RBC (4.6-6.2) 10^6/uL Hgb (14.0-18.0) g/dL Hct (40.0-54.0) % MCV (80-100) fL MCH (27.0-34.0) pg MCHC (33.0-35.0) g/dL Plt Count (150-450) 10^3/uL Neut % (Auto) (42.2-75.2) % Lymph % (Auto) (20.5-50.1) % Cooper % (Auto) (2-8) % Eos % (Auto) (1.0-3.0) % Baso % (Auto) (0.0-1.0) % PT 11.1 (9.0-12.0) SEC INR 1.1 (0.9-1.2) Sodium (135-145) mmol/L Potassium (3.6-5.0) mmol/L Chloride (101-111) mmol/L Carbon Dioxide (21.0-31.0) mmol/L Anion Gap BUN (7-18) mg/dL Creatinine (0.6-1.3) mg/dL Est Cr Clr Drug Dosing mL/min Estimated GFR (MDRD) Glucose (74-105) mg/dL Calcium (8.4-10.2) mg/dl Phosphorus (2.5-4.6) mg/dL Magnesium (1.8-2.5) mg/dL Total Bilirubin (0.2-1.0) mg/dL Direct Bilirubin (0.0-0.2) mg/dL Indirect Bilirubin AST (10-42) IU/L ALT (10-60) IU/L Alkaline Phosphatase (42-121) IU/L Total Protein (6.7-8.2) g/dl Albumin (3.2-5.5) g/dl Globulin Albumin/Globulin Ratio Med Orders - Current: Current Medications Acetaminophen (Tylenol) 650 mg PO Q4H PRN PRN Reason: Pain (Mild 1-3)/fever Clonidine HCl (Catapres) 0.1 mg PO BID [facility] Last Admin: 02/09/19 08:02 Dose: Not Given Heparin Sodium (Porcine) (Heparin Sodium) 5,000 units SUBCUT Q8HR [facility] Last Admin: 02/09/19 13:41 Dose: 5,000 units Potassium Chloride/Dextrose/Sod Cl (D5 Ns With 20 Meq Kcl) 1,000 mls @ 150 mls/ hr IV ASDIRECTED [facility] Last Admin: 02/09/19 10:21 Dose: 150 mls/hr Ibuprofen (Motrin) 400 mg PO Q6H PRN PRN Reason: Pain (moderate 4-6) Lactulose (Cephulac) 20 gm PO TID [facility] Last Admin: 02/09/19 13:41 Dose: 20 gm Lorazepam (Ativan) 0 mg IVPUSH ASDIRECTED PRN; Protocol PRN Reason: Withdrawal Symptoms Last Admin: 02/09/19 13:43 Dose: 1 mg Lorazepam (Ativan) 0 mg PO Q1H PRN; Protocol PRN Reason: alcohol withdrawal Last Admin: 02/09/19 03:21 Dose: 1 mg Magnesium Oxide (Magnesium Oxide) 250 mg PO TID [facility] Stop: 02/09/19 21:01 Last Admin: 02/09/19 13:41 Dose: 250 mg Ondansetron HCl (Zofran Odt) 4 mg PO Q4H PRN PRN Reason: nausea, able to take PO Ondansetron HCl (Zofran) 4 mg IVPUSH Q4H PRN PRN Reason: Nausea/Vomiting Last Admin: 02/08/19 23:20 Dose: 4 mg Pantoprazole Sodium (Protonix) 40 mg PO ACBREAKFAST [facility] Last Admin: 02/09/19 05:08 Dose: 40 mg Sodium Chloride (Saline Flush) 10 ml FLUSH ASDIRECTED PRN PRN Reason: Keep Vein Open Sodium Phosphate (Neutra-Phos) 250 mg PO QID [facility] Stop: 02/10/19 09:01 Last Admin: 02/09/19 11:59 Dose: 250 mg Venlafaxine HCl (Effexor Xr) 75 mg PO DAILY [facility] Last Admin: 02/09/19 08:03 Dose: Not Given Discontinued Medications Multivitamins/Minerals 10 ml/Folic Acid 1 mg/ Thiamine HCl 100 mg/ Lactated Ringer's 1,011.2 mls @ 999 mls/hr IV ONETIME ONE Stop: 02/07/19 21:52 Last Admin: 02/07/19 21:03 Dose: 999 mls/hr Multivitamins/Minerals 10 ml/Folic Acid 1 mg/ Thiamine HCl 100 mg/ Lactated Ringer's 1,011.2 mls @ 999 mls/hr IV DAILY ONE Stop: 02/08/19 10:00 Last Admin: 02/08/19 09:12 Dose: 999 mls/hr Lactulose (Cephulac) 20 gm PO ONETIME ONE Stop: 02/07/19 22:01 Last Admin: 02/07/19 22:06 Dose: 20 gm Lorazepam (Ativan) 1 mg IVPUSH ONETIME ONE Stop: 02/07/19 22:01 Last Admin: 02/07/19 22:06 Dose: 1 mg Potassium Chloride (Klor-Con 10) 40 meq PO ONETIME ONE Stop: 02/08/19 11:01 Last Admin: 02/08/19 12:01 Dose: 40 meq - Exam General: Reports: Alert, Oriented (Periodically) Neck: Reports: Supple Lungs: Reports: Clear to Auscultation, Normal Respiratory Effort GI/Abdominal Exam: Soft, Non-Tender Extremities: No Pedal Edema Skin: Reports: Warm, Dry Psy/Mental Status: Reports: Alert, Anxious, Hallucinations
== END 2019-02-09 16:00 | DRG 775 ==
LOC: DL.ED 20:57 → UNDOADMOB 22:22 → DL.MS 22:22 → INTOOBSV 22:22 → DL.MS 22:58 → OBSVTOIN 02-08 12:36
PROVIDERS: ADMIT Internal Medicine; ATTEND Internal Medicine
PROC: HZ2ZZZZ Detoxification Services for Substance Abuse Treatment (ICD-10-PCS; principal; 2019-02-08)
DX: F10.231 Alcohol dependence with withdrawal delirium (principal); G40.409 Other generalized epilepsy and epileptic syndromes, not intractable, without status epilepticus; F41.9 Anxiety disorder, unspecified; E72.20 Disorder of urea cycle metabolism, unspecified; R25.1 Tremor, unspecified; R74.8 Abnormal levels of other serum enzymes; K70.10 Alcoholic hepatitis without ascites; F10.29 Alcohol dependence with unspecified alcohol-induced disorder; Z79.899 Other long term (current) drug therapy; W19.XXXA Unspecified fall, initial encounter
CPT/HCPCS: 36415; 70450; 73030-LT; 80048; 80053; 80076; 82140; 83735; 84100; 85025; 85610; 96361; 96365; 96366; 96372; 96375; 96376; 99285-25; A9270-GY; G0378; J1644; J2060; J2405; J3411; J3480; J3490; J7120

== ENCOUNTER 2019-03-30 17:03 | Observation (INO) | payer BC ==
[2019-03-30] MEDS ORDERED: MVI, Adult with Vitamin K 10 ML, Folic Acid 1 MG, Thiamine 100 MG in Lactated Ringers 1... IV ONE ×4 (17:19)
--- NOTE | 2019-03-30 17:31 | EDM.PDOC ---
ED HPI GENERAL MEDICAL PROBLEM - General Chief Complaint: General Stated Complaint: UNK Time Seen by Provider: 03/30/19 17:30 Source of Information: Reports: Patient History Limitations: Reports: No Limitations - History of Present Illness INITIAL COMMENTS - FREE TEXT/NARRATIVE: ED ambulatory with family, with ETOH withdrawal. Patient Recently completed 30 day inpatient treatment, Seeing outpatient counselor. Out of treatment on Tuesday drank 1.75L rum on . Weak today. Prior to treatment patient initially hospitalized here with withdrawal sx, Increased CIWAA and seizure. Transferred to [facility] and in ICU. - Related Data Allergies Allergy/AdvReac Type Severity Reaction Status Date / Time No Known Allergies Allergy Verified 02/07/19 20:34 Home Meds: Home Meds Venlafaxine HCl [Venlafaxine ER] 75 mg PO DAILY 02/07/19 [History] CIWAA - CIWAA CIWAA Nausea And Vomitin - Mild Nausea with No Vomiting CIWAA Tremor: 3 CIWAA Paroxysmal Sweats: 1 - Barely Perceptible Sweating, Palms Moist CIWAA Anxiety: 4 - Moderately Anxious, or Guarded, so Anxiety is Inferred CIWAA Agitation: 4 - Moderately Fidgety and Restless CIWAA Tactile Disturbances: 0 - None CIWAA Auditory Disturbances: 0 - Not Present CIWAA Visual Disturbances: 0 - Not Present CIWAA Headache, Fullness in Head: 1 - Very Mild CIWAA Orientation And Clouding Of Sensorium: 0 - Oriented and Can do Serial Additions CIWAA Scale Score: 14 Past Medical History - Past Surgical History Other GI Surgeries/Procedures: Colitis and colon surgery Social & Family History - Family History Family Medical History: Noncontributory - Caffeine Use Caffeine Use: Reports: Coffee ED ROS GENERAL - Review of Systems Review Of Systems: See Below Constitutional: Reports: Weakness HEENT: Reports: No Symptoms Cardiovascular: Reports: No Symptoms Endocrine: Reports: No Symptoms GI/Abdominal: Reports: Anorexia, Decreased Appetite Musculoskeletal: Reports: No Symptoms Skin: Reports: Diaphoresis Neurological: Denies: Tremors Psychiatric: Reports: Anxiety, Cravings ED EXAM, GENERAL - Physical Exam Exam: See Below Exam Limited By: No Limitations General Appearance: Alert, Anxious, Moderate Distress Eye Exam: Bilateral Eye: EOMI, Nystagmus Ears: Normal External Exam, Normal TMs Nose: Normal Inspection Throat/Mouth: Normal Inspection Head: Atraumatic, Normocephalic Neck: Normal Inspection Respiratory/Chest: No Respiratory Distress, Lungs Clear, Normal Breath Sounds Cardiovascular: Normal Peripheral Pulses, Regular Rate, Rhythm, No Edema GI/Abdominal: Normal Bowel Sounds, Soft. No: Distended, Guarding Extremities: Normal Inspection Neurological: Alert, Oriented, Normal Cognition Psychiatric: Anxious Skin Exam: Intact, Normal Color, Other (palms diaphoretic, CIWAA 12) Course - Vital Signs Last Recorded V/S: Last Vital Signs Temp 99.3 F 03/31/19 08:00 Pulse 63 03/31/19 08:00 Resp 18 03/31/19 08:00 BP 149/106 H 03/31/19 08:00 Pulse Ox 99 03/31/19 08:00 - Orders/Labs/Meds Orders: Medication Orders Heparin Sodium (Porcine) (Heparin Sodium) 5,000 units SUBCUT Q8HR [facility] Last Admin: 03/31/19 05:37 Dose: Not Given Admin: 03/30/19 21:29 Dose: Not Given Lorazepam (Ativan) 0 mg PO ASDIRECTED PRN; Protocol PRN Reason: Withdrawal Symptoms Last Admin: 03/31/19 08:10 Dose: 1 mg Lorazepam (Ativan) 0 mg IVPUSH ASDIRECTED PRN; Protocol PRN Reason: Withdrawal Symptoms Ondansetron HCl (Zofran Odt) 4 mg PO Q4H PRN PRN Reason: nausea, able to take PO Ondansetron HCl (Zofran) 4 mg IVPUSH Q4H PRN PRN Reason: Nausea/Vomiting Venlafaxine HCl (Effexor Xr) 75 mg PO DAILY [facility] Last Admin: 03/31/19 08:11 Dose: 75 mg Labs: Laboratory Tests 03/30/19 03/30/19 03/30/19 Range/Units 17:29 17:29 17:29 WBC 6.8 (5.0-10.0) 10^3/uL RBC 5.59 (4.6-6.2) 10^6/uL Hgb 16.9 (14.0-18.0) g/dL Hct 47.9 (40.0-54.0) % MCV 85.7 D (80-100) fL MCH 30.2 (27.0-34.0) pg MCHC 35.3 H (33.0-35.0) g/dL Plt Count 155 (150-450) 10^3/uL Neut % (Auto) 68.2 (42.2-75.2) % Lymph % (Auto) 22.9 (20.5-50.1) % [place] % (Auto) 7.2 (2-8) % Eos % (Auto) 1.3 (1.0-3.0) % Baso % (Auto) 0.4 (0.0-1.0) % Sodium 137 (135-145) mmol/L Potassium 3.6 (3.6-5.0) mmol/L Chloride 101 (101-111) mmol/L Carbon Dioxide 23.0 (21.0-31.0) mmol/L Anion Gap 16.6 BUN 7 (7-18) mg/dL Creatinine 0.8 (0.6-1.3) mg/dL Est Cr Clr Drug Dosing 151.27 mL/min Estimated GFR (MDRD) > 60 BUN/Creatinine Ratio 8.75 Glucose 105 (74-105) mg/dL Calcium 9.8 (8.4-10.2) mg/dl Total Bilirubin 1.0 (0.2-1.0) mg/dL AST 45 H (10-42) IU/L ALT 33 (10-60) IU/L Alkaline Phosphatase 77 (42-121) IU/L Ammonia 35 (11-35) umol/L Total Protein 7.9 (6.7-8.2) g/dl Albumin 4.2 (3.2-5.5) g/dl Globulin 3.7 Albumin/Globulin Ratio 1.14 Amylase 96 (28-100) U/L Lipase 43 (22-51) U/L Ethyl Alcohol < 5 mg/dL Meds: Medications Generic Name Dose Route Start Last Admin Trade Name Freq PRN Reason Stop Dose Admin Heparin Sodium (Porcine) 5,000 units 03/30/19 22:00 03/31/19 05:37 Heparin Sodium SUBCUT Not Given Q8HR DESIREE Lorazepam 0 mg 03/30/19 19:13 03/31/19 08:10 Ativan PO 1 mg ASDIRECTED PRN Administration Withdrawal Symptoms Protocol Lorazepam 0 mg 03/30/19 19:13 Ativan IVPUSH ASDIRECTED PRN Withdrawal Symptoms Protocol Ondansetron HCl 4 mg 03/30/19 19:13 Zofran Odt PO Q4H PRN nausea, able to take PO Ondansetron HCl 4 mg 03/30/19 19:13 Zofran IVPUSH Q4H PRN Nausea/Vomiting Venlafaxine HCl 75 mg 03/31/19 09:00 03/31/19 08:11 Effexor Xr PO 75 mg DAILY DESIREE Administration Discontinued Medications Generic Name Dose Route Start Last Admin Trade Name Freq PRN Reason Stop Dose Admin Multivitamins/Minerals 10 ml/ 1,011.2 mls @ 999 mls/hr 03/30/19 17:19 19:11 Folic Acid 1 mg/ Thiamine HCl IV 03/30/19 18:19 Infused 100 mg/ Lactated Ringer's ONETIME ONE Infusion Lorazepam 1 mg 03/30/19 18:08 03/30/19 18:14 Ativan IVPUSH 03/30/19 18:09 1 mg ONETIME ONE Administration - Re-Assessments/Exams Free Text/Narrative Re-Assessment/Exam: 03/31/19 09:45 Dr Otto accepting patient for admission. Departure - Departure Time of Disposition: 20:09 Disposition: Refer to Observation Condition: Good Clinical Impression: Alcohol withdrawal Qualifiers: Complication of substance-induced condition: uncomplicated Qualified Code(s): F10.230 - Alcohol dependence with withdrawal, uncomplicated - Discharge Information *PRESCRIPTION DRUG MONITORING PROGRAM REVIEWED*: No *COPY OF PRESCRIPTION DRUG MONITORING REPORT IN PATIENT RUDDY: No
[2019-03-30 18:08] LABS: ANION GAP 16.6; CHLORIDE,CL 101 mmol/L (101-111); SODIUM,NA 137 mmol/L (135-145)
[2019-03-30] MEDS ORDERED: LORazepam 2 MG/ML Syringe IVPUSH ONE (18:08)
[2019-03-30] MEDS ORDERED: Ondansetron 4 MG Tab.DIS PO PRN (19:13)
[2019-03-30] MEDS ORDERED: LORazepam 2 MG/ML Syringe IVPUSH PRN (19:13)
[2019-03-30] MEDS ORDERED: Ondansetron 4 MG/2 ML SDV IVPUSH PRN (19:13)
[2019-03-30] MEDS ORDERED: LORazepam 1 MG Tab PO PRN (19:13)
--- NOTE | 2019-03-30 19:24 | PCM.HP ---
H&P History of Present Illness - General Date of Service: 03/30/19 Admit Problem/Dx: Admission Diagnosis/Problem Admission Diagnosis/Problem Alcohol withdrawal syndrome - History of Present Illness Initial Comments - Free Text/Narative: 33-year-old gentleman with past medical history significant for alcohol abuse that complicated by withdrawal seizure that required ICU stay and intubation proximately one month ago, recent discharge from alcohol rehabilitation presented to the emergency room with 2 day history of heavy alcohol drinking alcohol withdrawal symptoms. Patient said that he drank a bottle of rum that was 1.75 L over 2 days, last drink was last evening. Started developing alcohol withdrawal symptoms today to present to the emergency room for further care. Patient said that his withdrawal symptoms are not as severe as last time. He denied any visual auditory hallucinations. He denied any other complaints. - Related Data Allergies/Adverse Reactions: Allergies Allergy/AdvReac Type Severity Reaction Status Date / Time No Known Allergies Allergy Verified 02/07/19 20:34 Home Medications: Home Meds Venlafaxine HCl [Venlafaxine ER] 75 mg PO DAILY 02/07/19 [History] Past Medical History - Past Health History Medical/Surgical History: Denies Medical/Surgical History Psychiatric History: Reports: Anxiety - Past Surgical History Other GI Surgeries/Procedures: Colitis and colon surgery Social & Family History - Family History Family Medical History: Noncontributory - Tobacco Use Smoking Status *Q: Never Smoker - Caffeine Use Caffeine Use: Reports: Coffee - Recreational Drug Use Recreational Drug Use: No H&P Review of Systems - Review of Systems: Review Of Systems: See Below General: Reports: No Symptoms HEENT: Reports: No Symptoms Pulmonary: Reports: No Symptoms Cardiovascular: Reports: No Symptoms Gastrointestinal: Reports: No Symptoms Genitourinary: Reports: No Symptoms Musculoskeletal: Reports: No Symptoms Skin: Reports: No Symptoms Psychiatric: Reports: No Symptoms Neurological: Reports: Tremors Hematologic/Lymphatic: Reports: No Symptoms Immunologic: Reports: No Symptoms Exam - Exam Exam: See Below - Vital Signs Vital Signs: Last Vital Signs Temp 36.2 C 03/30/19 17:13 Pulse 78 03/30/19 17:13 Resp 16 03/30/19 17:13 BP 156/82 H 03/30/19 17:13 Pulse Ox 100 03/30/19 17:13 Weight: 87.906 kg - Exam General: Alert, Oriented Lungs: Clear to Auscultation Cardiovascular: Regular Rate, Regular Rhythm GI/Abdominal Exam: Normal Bowel Sounds, Soft, Non-Tender Skin: Warm, Dry, Intact Neurological: Other (Tremors on extension of arms) Neuro Extensive - Mental Status: Alert, Oriented x3 Psychiatric: Alert, Normal Affect, Normal Mood - Patient Data Lab Results Last 24 hrs: Laboratory Results - last 24 hr 03/30/19 03/30/19 03/30/19 Range/Units 17:29 17:29 17:29 WBC 6.8 (5.0-10.0) 10^3/uL RBC 5.59 (4.6-6.2) 10^6/uL Hgb 16.9 (14.0-18.0) g/dL Hct 47.9 (40.0-54.0) % MCV 85.7 D (80-100) fL MCH 30.2 (27.0-34.0) pg MCHC 35.3 H (33.0-35.0) g/dL Plt Count 155 (150-450) 10^3/uL Neut % (Auto) 68.2 (42.2-75.2) % Lymph % (Auto) 22.9 (20.5-50.1) % [place] % (Auto) 7.2 (2-8) % Eos % (Auto) 1.3 (1.0-3.0) % Baso % (Auto) 0.4 (0.0-1.0) % Sodium 137 (135-145) mmol/L Potassium 3.6 (3.6-5.0) mmol/L Chloride 101 (101-111) mmol/L Carbon Dioxide 23.0 (21.0-31.0) mmol/L Anion Gap 16.6 BUN 7 (7-18) mg/dL Creatinine 0.8 (0.6-1.3) mg/dL Est Cr Clr Drug Dosing 151.27 mL/min Estimated GFR (MDRD) > 60 BUN/Creatinine Ratio 8.75 Glucose 105 (74-105) mg/dL Calcium 9.8 (8.4-10.2) mg/dl Total Bilirubin 1.0 (0.2-1.0) mg/dL AST 45 H (10-42) IU/L ALT 33 (10-60) IU/L Alkaline Phosphatase 77 (42-121) IU/L Ammonia 35 (11-35) umol/L Total Protein 7.9 (6.7-8.2) g/dl Albumin 4.2 (3.2-5.5) g/dl Globulin 3.7 Albumin/Globulin Ratio 1.14 Amylase 96 (28-100) U/L Lipase 43 (22-51) U/L Ethyl Alcohol < 5 mg/dL Result Diagrams: 03/30/19 17:29 03/30/19 17:29 Problem List Initiated/Reviewed/Updated: Yes Orders Last 24hrs: Active Orders 24 hr Category Date Time Status Patient Status [ADT] Routine ADT 03/30/19 19:13 Ordered Oxygen Therapy [RC] PRN Care 03/30/19 19:13 Ordered Up With Assistance [RC] ASDIRECTED Care 03/30/19 19:13 Ordered VTE/DVT Education [RC] PER UNIT ROUTINE Care 03/30/19 19:13 Ordered Vital Signs [RC] Q4H Care 03/30/19 19:13 Ordered Regular Diet [DIET] Diet 03/30/19 Dinner Ordered CBC WITH AUTO DIFF [HEME] AM Lab 03/31/19 05:11 Ordered COMPREHENSIVE METABOLIC PN,CMP [CHEM] AM Lab 03/31/19 05:11 Ordered Heparin Sodium Med 03/30/19 22:00 Ordered 5,000 units SUBCUT Q8HR LORazepam [Ativan] Med 03/30/19 19:13 Ordered See Protocol IVPUSH ASDIRECTED PRN LORazepam [Ativan] Med 03/30/19 19:13 Ordered See Protocol PO ASDIRECTED PRN Ondansetron [Zofran ODT] Med 03/30/19 19:13 Ordered 4 mg PO Q4H PRN Ondansetron [Zofran] Med 03/30/19 19:13 Ordered 4 mg IVPUSH Q4H PRN Seizure Precautions [OM.PC] Routine Oth 03/30/19 19:13 Ordered Resuscitation Status Routine Resus Stat 03/30/19 19:13 Ordered Assessment/Plan Comment:: alcohol withdrawal will start patient on CIWA protocol seizure precautions fall precautions thiamine DVT prophylaxis heparin
[2019-03-30] MEDS: Heparin Sodium 5,000 Units/ML Vial SUBCUT SCH (21:29)
[2019-03-31] MEDS: Heparin Sodium 5,000 Units/ML Vial SUBCUT SCH (05:37)
[2019-03-31 06:50] LABS: ANION GAP 15.6; CHLORIDE,CL 100 mmol/L (101-111); SODIUM,NA 135 mmol/L (135-145)
[2019-03-31] MEDS ORDERED: Venlafaxine 37.5 MG Cap.ER PO SCH (09:00)
--- NOTE | 2019-03-31 09:49 | PCM.DCSUM1 ---
Discharge Summary - Hospital Course Free Text/Narrative:: 33-year-old gentleman with past medical history significant for alcohol abuse that complicated by withdrawal seizure that required ICU stay and intubation proximately one month ago, recent discharge from alcohol rehabilitation presented to the emergency room with 2 day history of heavy alcohol drinking alcohol withdrawal symptoms. Patient's withdrawal symptoms resolved. She discharged in stable condition. Patient said he is not interested in any further treatment for alcohol. - Discharge Data Discharge Date: 03/31/19 Discharge Disposition: Home, Self-Care 01 Condition: Good - Discharge Plan *PRESCRIPTION DRUG MONITORING PROGRAM REVIEWED*: No *COPY OF PRESCRIPTION DRUG MONITORING REPORT IN PATIENT RUDDY: No Home Medications: Home Meds Venlafaxine HCl [Venlafaxine ER] 75 mg PO DAILY 02/07/19 [History] Forms: ED Department Discharge Referrals: PCP,None [Primary Care Provider] - - Discharge Summary/Plan Comment DC Time >30 min.: Yes - General Info Date of Service: 03/31/19 - Review of Systems General: Reports: No Symptoms HEENT: Reports: No Symptoms Pulmonary: Reports: No Symptoms Cardiovascular: Reports: No Symptoms Gastrointestinal: Reports: No Symptoms Genitourinary: Reports: No Symptoms Musculoskeletal: Reports: No Symptoms Skin: Reports: No Symptoms Neurological: Reports: No Symptoms Psychiatric: Reports: No Symptoms - Patient Data Vitals - Most Recent: Last Vital Signs Temp 37.4 C 03/31/19 08:00 Pulse 63 03/31/19 08:00 Resp 18 03/31/19 08:00 BP 149/106 H 03/31/19 08:00 Pulse Ox 99 03/31/19 08:00 Weight - Most Recent: 88.632 kg I&O - Last 24 hours: Intake & Output 03/30/19 03/31/19 03/31/19 22:59 06:59 14:59 Intake Total 1021 Balance 1021 Lab Results - Last 24 hrs: Laboratory Results - last 24 hr 03/30/19 03/30/19 03/30/19 Range/Units 17:29 17:29 17:29 WBC 6.8 (5.0-10.0) 10^3/uL RBC 5.59 (4.6-6.2) 10^6/uL Hgb 16.9 (14.0-18.0) g/dL Hct 47.9 (40.0-54.0) % MCV 85.7 D (80-100) fL MCH 30.2 (27.0-34.0) pg MCHC 35.3 H (33.0-35.0) g/dL Plt Count 155 (150-450) 10^3/uL Neut % (Auto) 68.2 (42.2-75.2) % Lymph % (Auto) 22.9 (20.5-50.1) % [place] % (Auto) 7.2 (2-8) % Eos % (Auto) 1.3 (1.0-3.0) % Baso % (Auto) 0.4 (0.0-1.0) % Sodium 137 (135-145) mmol/L Potassium 3.6 (3.6-5.0) mmol/L Chloride 101 (101-111) mmol/L Carbon Dioxide 23.0 (21.0-31.0) mmol/L Anion Gap 16.6 BUN 7 (7-18) mg/dL Creatinine 0.8 (0.6-1.3) mg/dL Est Cr Clr Drug Dosing 151.27 mL/min Estimated GFR (MDRD) > 60 BUN/Creatinine Ratio 8.75 Glucose 105 (74-105) mg/dL Calcium 9.8 (8.4-10.2) mg/dl Total Bilirubin 1.0 (0.2-1.0) mg/dL AST 45 H (10-42) IU/L ALT 33 (10-60) IU/L Alkaline Phosphatase 77 (42-121) IU/L Ammonia 35 (11-35) umol/L Total Protein 7.9 (6.7-8.2) g/dl Albumin 4.2 (3.2-5.5) g/dl Globulin 3.7 Albumin/Globulin Ratio 1.14 Amylase 96 (28-100) U/L Lipase 43 (22-51) U/L Ethyl Alcohol < 5 mg/dL 03/31/19 03/31/19 Range/Units 05:40 05:40 WBC 7.3 (5.0-10.0) 10^3/uL RBC 5.05 (4.6-6.2) 10^6/uL Hgb 15.3 D (14.0-18.0) g/dL Hct 43.9 (40.0-54.0) % MCV 86.9 (80-100) fL MCH 30.3 (27.0-34.0) pg MCHC 34.9 (33.0-35.0) g/dL Plt Count 144 L (150-450) 10^3/uL Neut % (Auto) 53.2 (42.2-75.2) % Lymph % (Auto) 35.2 (20.5-50.1) % [place] % (Auto) 7.8 (2-8) % Eos % (Auto) 3.7 H (1.0-3.0) % Baso % (Auto) 0.1 (0.0-1.0) % Sodium 135 (135-145) mmol/L Potassium 3.6 (3.6-5.0) mmol/L Chloride 100 L (101-111) mmol/L Carbon Dioxide 23.0 (21.0-31.0) mmol/L Anion Gap 15.6 BUN 12 (7-18) mg/dL Creatinine 0.9 (0.6-1.3) mg/dL Est Cr Clr Drug Dosing 134.46 mL/min Estimated GFR (MDRD) > 60 BUN/Creatinine Ratio 13.33 Glucose 98 (74-105) mg/dL Calcium 9.3 (8.4-10.2) mg/dl Total Bilirubin 1.2 H (0.2-1.0) mg/dL AST 36 (10-42) IU/L ALT 26 (10-60) IU/L Alkaline Phosphatase 71 (42-121) IU/L Ammonia (11-35) umol/L Total Protein 7.1 (6.7-8.2) g/dl Albumin 3.7 (3.2-5.5) g/dl Globulin 3.4 Albumin/Globulin Ratio 1.09 Amylase (28-100) U/L Lipase (22-51) U/L Ethyl Alcohol mg/dL Med Orders - Current: Current Medications Heparin Sodium (Porcine) (Heparin Sodium) 5,000 units SUBCUT Q8HR [facility] Last Admin: 03/31/19 05:37 Dose: Not Given Lorazepam (Ativan) 0 mg PO ASDIRECTED PRN; Protocol PRN Reason: Withdrawal Symptoms Last Admin: 03/31/19 08:10 Dose: 1 mg Lorazepam (Ativan) 0 mg IVPUSH ASDIRECTED PRN; Protocol PRN Reason: Withdrawal Symptoms Ondansetron HCl (Zofran Odt) 4 mg PO Q4H PRN PRN Reason: nausea, able to take PO Ondansetron HCl (Zofran) 4 mg IVPUSH Q4H PRN PRN Reason: Nausea/Vomiting Venlafaxine HCl (Effexor Xr) 75 mg PO DAILY DESIREE Last Admin: 03/31/19 08:11 Dose: 75 mg Discontinued Medications Multivitamins/Minerals 10 ml/Folic Acid 1 mg/ Thiamine HCl 100 mg/ Lactated Ringer's 1,011.2 mls @ 999 mls/hr IV ONETIME ONE Stop: 03/30/19 18:19 Last Infusion: 03/30/19 19:11 Dose: Infused Lorazepam (Ativan) 1 mg IVPUSH ONETIME ONE Stop: 03/30/19 18:09 Last Admin: 03/30/19 18:14 Dose: 1 mg - Exam General: Reports: Alert, Oriented Lungs: Reports: Clear to Auscultation, Normal Respiratory Effort GI/Abdominal Exam: Normal Bowel Sounds, Soft, Non-Tender Skin: Reports: Warm, Dry, Intact Neurological: Reports: No New Focal Deficit Psy/Mental Status: Reports: Alert, Normal Affect, Normal Mood
== END 2019-03-31 13:50 | disposition home or self-care (01) ==
LOC: DL.ED 17:03 → UNDOADMOB 19:06 → DL.MS 19:06
PROVIDERS: ADMIT Internal Medicine; ATTEND Internal Medicine
DX: F10.239 Alcohol dependence with withdrawal, unspecified (principal); F41.9 Anxiety disorder, unspecified; Z79.899 Other long term (current) drug therapy; Z98.890 Other specified postprocedural states
CPT/HCPCS: 36415; 80053; 82140; 82150; 83690; 85025; 96365; 96375; 99283; A9270; G0378; G0480; J2060; J3411; J7120; J3490

== ENCOUNTER 2019-10-10 10:21 | Observation (INO) | payer BC ==
[~2019-10-10 10:21] MED LIST changes: +LORazepam 2 MG/ML Syringe IVPUSH ONE
--- NOTE | 2019-10-10 10:22 | EDM.PDOCBH ---
ED HPI GENERAL MEDICAL PROBLEM - General Chief Complaint: Drug or Alcohol Abuse Stated Complaint: UNKNOWN Time Seen by Provider: 10/10/19 10:20 Source of Information: Reports: Patient History Limitations: Reports: No Limitations - History of Present Illness INITIAL COMMENTS - FREE TEXT/NARRATIVE: states recurrent h/o going through DTs onset last night. been drinking few weeks. was in treatment in [facility] Epigastric Pain Score (Numeric/FACES): 3 - Related Data Allergies Allergy/AdvReac Type Severity Reaction Status Date / Time No Known Allergies Allergy Verified 10/10/19 10:27 Home Meds: Home Meds Folic Acid 1 tab PO DAILY 10/10/19 [History] Metoprolol Tartrate 12.5 mg PO BID 10/10/19 [History] Multivitamin [Multi-Vitamin Daily] 1 tab PO DAILY 10/10/19 [History] Past Medical History - Past Health History Medical/Surgical History: Denies Medical/Surgical History Gastrointestinal History: Reports: Other (See Below) Other Gastrointestinal History: ulcerative as child - no recent issues Musculoskeletal History: Reports: Other (See Below) Other Musculoskeletal History: sees chiropractor for neck and back pain Neurological History: Reports: Seizure Other Neuro History: ETOH withdrawl seizure Psychiatric History: Reports: Addiction, Anxiety Other Psychiatric History: daily drinker of alcohol, 1/2-1 liter per day - Infectious Disease History Infectious Disease History: Reports: Chicken Pox - Past Surgical History Other GI Surgeries/Procedures: Colitis and colon surgery Social & Family History - Family History Family Medical History: Noncontributory - Caffeine Use Caffeine Use: Reports: None ED ROS GENERAL - Review of Systems Review Of Systems: Comprehensive ROS is negative, except as noted in HPI. ED EXAM, BEHAVIORAL HEALTH - Physical Exam Exam: See Below Exam Limited By: No Limitations General Appearance: Alert, WD/WN, Anxious, Mild Distress, Moderate Distress Eye Exam: Bilateral Eye: PERRL (pupils ess ER @ 4mm) Ears: Hearing Grossly Normal Throat/Mouth: Normal Voice, No Airway Compromise Head: Atraumatic Neck: Non-Tender, Full Range of Motion Respiratory/Chest: No Respiratory Distress Cardiovascular: Regular Rate, Rhythm GI/Abdominal: Soft, Non-Tender Neurological: Alert, Normal Cognition, No Motor/Sensory Deficits, Oriented x 3, Other (anxious) Psychiatric: Alert, Agitated, Other (anxious) Skin Exam: Warm, Dry, Normal color COURSE, BEHAVIORAL HEALTH COMP - Course Vital Signs: Last Vital Signs Temp 37.5 C 10/10/19 10:21 Pulse 84 10/10/19 10:21 Resp 18 10/10/19 10:21 BP 130/106 H 10/10/19 10:21 Pulse Ox 99 10/10/19 10:21 Orders, Labs, Meds: Active Orders 24 hr Category Date Time Status RT Aerosol Therapy [RC] ASDIRECTED Care 10/10/19 13:51 Inactive Laboratory Tests 10/10/19 10/10/19 Range/Units 10:23 10:23 WBC 4.8 L (5.0-10.0) 10^3/uL RBC 5.02 (4.6-6.2) 10^6/uL Hgb 15.5 (14.0-18.0) g/dL Hct 42.8 (40.0-54.0) % MCV 85.3 (80-100) fL MCH 30.9 (27.0-34.0) pg MCHC 36.2 H (33.0-35.0) g/dL Plt Count 97 L (150-450) 10^3/uL Neut % (Auto) 69.6 (42.2-75.2) % Lymph % (Auto) 22.3 (20.5-50.1) % [place] % (Auto) 7.3 (2-8) % Eos % (Auto) 0.4 L (1.0-3.0) % Baso % (Auto) 0.4 (0.0-1.0) % Sodium 135 (135-145) mmol/L Potassium 3.8 (3.6-5.0) mmol/L Chloride 96 L (101-111) mmol/L Carbon Dioxide 21.0 (21.0-31.0) mmol/L Anion Gap 21.8 BUN 4 L (7-18) mg/dL Creatinine 0.7 (0.6-1.3) mg/dL Est Cr Clr Drug Dosing 166.46 mL/min Estimated GFR (MDRD) > 60 BUN/Creatinine Ratio 5.71 Glucose 116 H (74-105) mg/dL Calcium 8.9 (8.4-10.2) mg/dl Total Bilirubin 1.4 H (0.2-1.0) mg/dL AST 72 H (10-42) IU/L ALT 47 (10-60) IU/L Alkaline Phosphatase 62 (42-121) IU/L Total Protein 8.2 (6.7-8.2) g/dl Albumin 4.4 (3.2-5.5) g/dl Globulin 3.8 Albumin/Globulin Ratio 1.16 Ethyl Alcohol 32 mg/dL Medications Discontinued Medications Generic Name Dose Route Start Last Admin Trade Name Maddi PRN Reason Stop Dose Admin Albuterol/Ipratropium 3 ml 10/10/19 13:51 10/10/19 14:16 Duoneb 3.0-0.5 Mg/3 Ml NEB 10/10/19 13:52 Not Given ONETIME ONE Multivitamins/Minerals 10 ml/ 1,011.2 mls @ 999 mls/hr 10/10/19 10:19 10:34 Folic Acid 1 mg/ Thiamine HCl IV 10/10/19 11:19 999 mls/hr 100 mg/ Lactated Ringer's ONETIME ONE Administration Lorazepam 2 mg 10/10/19 10:19 10/10/19 10:33 Ativan IVPUSH 10/10/19 10:20 2 mg ONETIME ONE Administration Methylprednisolone Sodium Succinate 125 mg 10/10/19 13:51 10/10/19 14:16 Solu-Medrol IVPUSH 10/10/19 13:52 Not Given ONETIME ONE Re-Assessment/Re-Exam: case discussed with Dr Fierro who kindly admitted for observation. Departure - Departure Time of Disposition: 14:40 Disposition: Refer to Observation Condition: Fair Clinical Impression: Alcohol withdrawal delirium, Alcohol abuse - Discharge Information Forms: ED Department Discharge Sepsis Event Note - Focused Exam Vital Signs: Vital Signs Temp Pulse Resp BP Pulse Ox 10/10/19 10:21 37.5 C 84 18 130/106 H 99 Date Exam was Performed: 10/10/19 Time Exam was Performed: 14:39 - My Orders Last 24 Hours: My Active Orders 10/10/19 13:51 RT Aerosol Therapy [RC] ASDIRECTED - Assessment/Plan Last 24 Hours: My Active Orders 10/10/19 13:51 RT Aerosol Therapy [RC] ASDIRECTED
[2019-10-10 10:52] LABS: ANION GAP 21.8; CHLORIDE,CL 96 mmol/L (101-111); SODIUM,NA 135 mmol/L (135-145)
[2019-10-10] MEDS ORDERED: Albuterol/Ipratropium 3.0-0.5 MG/3 ML Neb Soln NEB ONE (13:51)
[2019-10-10] MEDS ORDERED: methylPREDNISolone Sodium Succinate 125 MG/2 ML SDV IVPUSH ONE (13:51)
[2019-10-10] MEDS ORDERED: Folic Acid 50 MG/10 ML MDV IV SCH (15:45)
[2019-10-10] MEDS: LORazepam 2 MG/ML Syringe IVPUSH PRN ×3 (15:49→21:09)
--- NOTE | 2019-10-10 16:00 | PCM.HP ---
H&P History of Present Illness - General Date of Service: 10/10/19 Admit Problem/Dx: Admission Diagnosis/Problem Admission Diagnosis/Problem Alcohol withdrawal delirium, acute, hyperactive Source of Information: Patient, Provider (er - dr. Montes) - History of Present Illness Initial Comments - Free Text/Narative: 34-year-old with a history of hypertension, alcohol addiction. The patient has a history of Significant withdrawal symptoms of seizure in the past. 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 Was in [facility] with an inpatient alcohol treatment program. He was discharged from there about 2 weeks ago, came home in the [facility]. In the meantime he moved his home his marriage was in trouble. He has not started the to go to AA meetings yet. He started to drink heavily again. He has been drinking rum. Last drink was yesterday. During the night and this morning has been experiencing increasing shaking, nausea. No chest pain, no abdominal pain. Into the emergency room today. He has not been taking his blood pressure medication for a while. Epigastric Pain Score (Numeric/FACES): 3 - Related Data Allergies/Adverse Reactions: Allergies Allergy/AdvReac Type Severity Reaction Status Date / Time No Known Allergies Allergy Verified 10/10/19 10:27 Home Medications: Home Meds Folic Acid 1 tab PO DAILY 10/10/19 [History] Metoprolol Tartrate 12.5 mg PO BID 10/10/19 [History] Multivitamin [Multi-Vitamin Daily] 1 tab PO DAILY 10/10/19 [History] Past Medical History - Past Health History Medical/Surgical History: Denies Medical/Surgical History HEENT History: Reports: None Cardiovascular History: Reports: Hypertension Respiratory History: Reports: None Gastrointestinal History: Reports: Other (See Below) Other Gastrointestinal History: ulcerative as child - no recent issues Genitourinary History: Reports: None Musculoskeletal History: Reports: Other (See Below) Other Musculoskeletal History: sees chiropractor for neck and back pain Neurological History: Reports: Seizure Other Neuro History: ETOH withdrawl seizure Psychiatric History: Reports: Addiction, Anxiety Other Psychiatric History: daily drinker of alcohol, 1/2-1 liter per day Endocrine/Metabolic History: Reports: None Hematologic History: Reports: None Immunologic History: Reports: None Oncologic (Cancer) History: Reports: None Dermatologic History: Reports: None - Infectious Disease History Infectious Disease History: Reports: Chicken Pox - Past Surgical History Other GI Surgeries/Procedures: Colitis and colon surgery Social & Family History - Family History Family Medical History: Noncontributory - Tobacco Use Smoking Status *Q: Never Smoker Second Hand Smoke Exposure: No - Caffeine Use Caffeine Use: Reports: None - Recreational Drug Use Recreational Drug Use: No H&P Review of Systems - Review of Systems: Review Of Systems: See Below General: Reports: Malaise, Weakness, Decreased Appetite. Denies: Fever Pulmonary: Denies: Shortness of Breath Cardiovascular: Denies: Chest Pain Gastrointestinal: Denies: Abdominal Pain, Bloody Stool, Diarrhea Psychiatric: Reports: Anxiety, Cravings Neurological: Reports: Tremors, Weakness Exam - Exam Exam: See Below - Vital Signs Vital Signs: Last Vital Signs Temp 37.4 C 10/10/19 15:02 Pulse 98 10/10/19 15:02 Resp 20 10/10/19 15:02 BP 156/86 H 10/10/19 15:02 Pulse Ox 97 10/10/19 15:02 Weight: 88.813 kg - Exam General: Alert, Oriented Neck: Supple Lungs: Clear to Auscultation, Normal Respiratory Effort Cardiovascular: Regular Rate, Regular Rhythm, Tachycardia GI/Abdominal Exam: Normal Bowel Sounds, Soft, Non-Tender Extremities: No Pedal Edema Neuro Extensive - Mental Status: Other (Bilateral upper extremity tremor) - Patient Data Lab Results Last 24 hrs: Laboratory Results - last 24 hr 10/10/19 10/10/19 Range/Units 10:23 10:23 WBC 4.8 L (5.0-10.0) 10^3/uL RBC 5.02 (4.6-6.2) 10^6/uL Hgb 15.5 (14.0-18.0) g/dL Hct 42.8 (40.0-54.0) % MCV 85.3 (80-100) fL MCH 30.9 (27.0-34.0) pg MCHC 36.2 H (33.0-35.0) g/dL Plt Count 97 L (150-450) 10^3/uL Neut % (Auto) 69.6 (42.2-75.2) % Lymph % (Auto) 22.3 (20.5-50.1) % [place] % (Auto) 7.3 (2-8) % Eos % (Auto) 0.4 L (1.0-3.0) % Baso % (Auto) 0.4 (0.0-1.0) % Sodium 135 (135-145) mmol/L Potassium 3.8 (3.6-5.0) mmol/L Chloride 96 L (101-111) mmol/L Carbon Dioxide 21.0 (21.0-31.0) mmol/L Anion Gap 21.8 BUN 4 L (7-18) mg/dL Creatinine 0.7 (0.6-1.3) mg/dL Est Cr Clr Drug Dosing 166.46 mL/min Estimated GFR (MDRD) > 60 BUN/Creatinine Ratio 5.71 Glucose 116 H (74-105) mg/dL Calcium 8.9 (8.4-10.2) mg/dl Total Bilirubin 1.4 H (0.2-1.0) mg/dL AST 72 H (10-42) IU/L ALT 47 (10-60) IU/L Alkaline Phosphatase 62 (42-121) IU/L Total Protein 8.2 (6.7-8.2) g/dl Albumin 4.4 (3.2-5.5) g/dl Globulin 3.8 Albumin/Globulin Ratio 1.16 Ethyl Alcohol 32 mg/dL Result Diagrams: 10/10/19 10:23 10/10/19 10:23 - Problem List (1) Alcohol abuse SNOMED Code(s): 72159196 ICD Code: F10.10 - ALCOHOL ABUSE, UNCOMPLICATED Status: Acute Current Visit: No (2) Alcohol withdrawal SNOMED Code(s): 638680549 ICD Code: F10.239 - ALCOHOL DEPENDENCE WITH WITHDRAWAL, UNSPECIFIED Status : Acute Current Visit: No Qualifiers: Complication of substance-induced condition: uncomplicated Qualified Code(s ): F10.230 - Alcohol dependence with withdrawal, uncomplicated Problem List Initiated/Reviewed/Updated: Yes Orders Last 24hrs: Active Orders 24 hr Category Date Time Status Admission Diagnosis [ADT] Stat ADT 10/10/19 14:41 Ordered Admission Status [Patient Status] [ADT] Routine ADT 10/10/19 14:41 Active Admission Status [Patient Status] [ADT] Routine ADT 10/10/19 14:42 Active RT Aerosol Therapy [RC] ASDIRECTED Care 10/10/19 13:51 Inactive BASIC METABOLIC PANEL,BMP [CHEM] AM Lab 10/11/19 05:15 Ordered CBC WITH AUTO DIFF [HEME] AM Lab 10/11/19 05:15 Ordered HEPATIC FUNCTION PANEL,HFP [CHEM] AM Lab 10/11/19 05:11 Ordered Folic Acid Med 10/10/19 15:45 Ordered 1 mg IV DAILY LORazepam [Ativan] Med 10/10/19 15:13 Active See Protocol IVPUSH TITRATE PRN LORazepam [Ativan] Med 10/10/19 15:14 Active See Protocol PO TITRATE PRN Metoprolol Tartrate [Lopressor] Med 10/10/19 21:00 Ordered 12.5 mg PO BID Multivitamins,Therapeutic [Thera] Med 10/10/19 21:00 Ordered 1 each PO BEDTIME NS + KCl 20mEq/L [Normal Saline with 20 mEq KCl] 1,000 Med 10/10/19 16:00 Ordered ml IV ASDIRECTED Thiamine [Vitamin B-1] Med 10/10/19 15:45 Ordered 100 mg IV DAILY Medication Orders Folic Acid (Folic Acid) 1 mg IV DAILY DESIREE Potassium Chloride/Sodium Chloride (Normal Saline With 20 Meq Kcl) 1,000 mls @ 125 mls/hr IV ASDIRECTED DESIREE Lorazepam (Ativan) 0 mg IVPUSH TITRATE PRN; Protocol PRN Reason: Withdrawal Symptoms Last Admin: 10/10/19 15:49 Dose: 2 mg Lorazepam (Ativan) 0 mg PO TITRATE PRN; Protocol PRN Reason: Withdrawal Symptoms Metoprolol Tartrate (Lopressor) 12.5 mg PO BID DESIREE Multivitamins (Thera) 1 each PO BEDTIME DESIREE Thiamine HCl (Vitamin B-1) 100 mg IV DAILY [facility] Assessment/Plan Comment:: 1. Acute alcohol withdrawal. Frequent evaluations and titration of Ativan per the [facility] protocol We will give the patient IV fluids with IV electrolyte replacement. Follow electrolytes. 2. Chronic Alcohol addiction. Consult Social Work and evaluate for alcohol treatment programs. 3. Chronic alcohol use. Supplement thiamine, folate and multivitamin. 4. htn resume metoprolol 5. Deep venous thrombosis (DVT) prophylaxis will be with subcutaneous heparin.
[2019-10-10] MEDS: Thiamine 200 MG/2 ML MDV IV SCH (17:22)
[2019-10-10] MEDS: NS + KCl 20mEq/L 1,000 ML IV SCH (17:22)
[2019-10-10] MEDS ORDERED: Temazepam 15 MG Cap PO PRN (18:26)
[2019-10-10] MEDS ORDERED: Ondansetron 4 MG/2 ML SDV IVPUSH PRN (18:26)
[2019-10-10] MEDS: Folic Acid 50 MG/10 ML MDV IV SCH (19:07)
[2019-10-10] MEDS ORDERED: Multivitamins,Therapeutic Tab PO SCH (21:00)
[2019-10-10] MEDS: Metoprolol Tartrate 25 MG Tab PO SCH (21:07)
[2019-10-10] MEDS: Heparin Sodium 5,000 Units/ML Vial SUBCUT SCH (21:08)
[2019-10-11] MEDS: NS + KCl 20mEq/L 1,000 ML IV SCH (01:19)
[2019-10-11] MEDS: LORazepam 2 MG/ML Syringe IVPUSH PRN (01:23)
[2019-10-11] MEDS: LORazepam 1 MG Tab PO PRN ×3 (03:56→11:11)
[2019-10-11] MEDS: Heparin Sodium 5,000 Units/ML Vial SUBCUT SCH (05:58)
[2019-10-11 07:10] LABS: ANION GAP 13.5; CHLORIDE,CL 103 mmol/L (101-111); SODIUM,NA 136 mmol/L (135-145)
[2019-10-11] MEDS: Thiamine 200 MG/2 ML MDV IV SCH (08:21)
[2019-10-11] MEDS: Metoprolol Tartrate 25 MG Tab PO SCH (08:23)
[2019-10-11] MEDS: Folic Acid 50 MG/10 ML MDV IV SCH (09:50)
[2019-10-11] MEDS ORDERED: Potassium Chloride 10 MEQ Tab.ER PO ONE (10:08)
--- NOTE | 2019-10-11 10:14 | PCM.DCSUM1 ---
Discharge Summary - Hospital Course Free Text/Narrative:: 34-year-old with a history of hypertension, alcohol addiction. The patient has a history of Significant withdrawal symptoms of seizure in the past. 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 Was in [place] for an inpatient alcohol treatment program. He was discharged from there about 2 weeks ago, came home in the [place] area. In the meantime he moved out of his home, his marriage was in trouble. He has not started the to go to AA meetings yet. He started to drink heavily again. He has been drinking rum. 1. Acute alcohol withdrawal. treated with ativan symptoms resolved will send home with a few days of ativan as needed. 2. Chronic Alcohol addiction. he is planning to f/up with AA as out pt 3. Chronic alcohol use. Supplement thiamine, folate and multivitamin. 4. htn resume metoprolol Diagnosis: Stroke: No - Discharge Data Discharge Date: 10/11/19 Discharge Disposition: Home, Self-Care 01 Condition: Good - Referral to Home Health Primary Care Physician: PCP Unobtainable - Discharge Diagnosis/Problem(s) (1) Alcohol abuse SNOMED Code(s): 90751252 ICD Code: F10.10 - ALCOHOL ABUSE, UNCOMPLICATED Status: Acute Current Visit: No (2) Alcohol withdrawal SNOMED Code(s): 255574969 ICD Code: F10.239 - ALCOHOL DEPENDENCE WITH WITHDRAWAL, UNSPECIFIED Status : Acute Current Visit: No Qualifiers: Complication of substance-induced condition: uncomplicated Qualified Code(s ): F10.230 - Alcohol dependence with withdrawal, uncomplicated - Patient Instructions Diet: Heart Healthy Diet Activity: As Tolerated - Discharge Plan *PRESCRIPTION DRUG MONITORING PROGRAM REVIEWED*: Not Applicable *COPY OF PRESCRIPTION DRUG MONITORING REPORT IN PATIENT RUDDY: Not Applicable Prescriptions/Med Rec: LORazepam [Ativan] 1 mg PO Q4H PRN 2 Days #7 tablet PRN Reason: Withdrawal Symptoms Thiamine [Vitamin B-1] 100 mg PO BEDTIME #10 tab Home Medications: Home Meds Metoprolol Tartrate 12.5 mg PO BID 10/10/19 [History] Multivitamin [Multi-Vitamin Daily] 1 tab PO DAILY 10/10/19 [History] Folic Acid 1 tab PO DAILY 10 Days #10 tab 10/11/19 [Rx] LORazepam [Ativan] 1 mg PO Q4H PRN 2 Days #7 tablet 10/11/19 [Rx] Thiamine [Vitamin B-1] 100 mg PO BEDTIME #10 tab 10/11/19 [Rx] Oxygen Therapy Mode: Room Air Referrals: PCP,Unobtain [Primary Care Provider] - (ms. Rincon in 2-3 days) - Discharge Summary/Plan Comment DC Time >30 min.: No - General Info Date of Service: 10/11/19 Functional Status: Reports: Tolerating Diet, Ambulating, Urinating - Review of Systems General: Denies: Fever, Weakness Pulmonary: Denies: Shortness of Breath Cardiovascular: Denies: Chest Pain Gastrointestinal: Denies: Abdominal Pain Neurological: Denies: Confusion, Dizziness - Patient Data Vitals - Most Recent: Last Vital Signs Temp 37.0 C 10/11/19 07:18 Pulse 72 10/11/19 08:23 Resp 20 10/11/19 07:18 BP 145/73 H 10/11/19 08:23 Pulse Ox 99 10/11/19 07:18 Weight - Most Recent: 88.813 kg I&O - Last 24 hours: Intake & Output 10/10/19 10/11/19 10/11/19 22:59 06:59 14:59 Intake Total 900 2592 300 Balance 900 2592 300 Lab Results - Last 24 hrs: Laboratory Results - last 24 hr 10/10/19 10/10/19 10/11/19 Range/Units 10:23 10:23 06:00 WBC 4.8 L (5.0-10.0) 10^3/uL RBC 5.02 (4.6-6.2) 10^6/uL Hgb 15.5 (14.0-18.0) g/dL Hct 42.8 (40.0-54.0) % MCV 85.3 (80-100) fL MCH 30.9 (27.0-34.0) pg MCHC 36.2 H (33.0-35.0) g/dL Plt Count 97 L (150-450) 10^3/uL Neut % (Auto) 69.6 (42.2-75.2) % Lymph % (Auto) 22.3 (20.5-50.1) % [place] % (Auto) 7.3 (2-8) % Eos % (Auto) 0.4 L (1.0-3.0) % Baso % (Auto) 0.4 (0.0-1.0) % Sodium 135 136 (135-145) mmol/L Potassium 3.8 3.5 L (3.6-5.0) mmol/L Chloride 96 L 103 (101-111) mmol/L Carbon Dioxide 21.0 23.0 (21.0-31.0) mmol/L Anion Gap 21.8 13.5 BUN 4 L < 5 L (7-18) mg/dL Creatinine 0.7 0.8 (0.6-1.3) mg/dL Est Cr Clr Drug Dosing 166.46 145.65 mL/min Estimated GFR (MDRD) > 60 > 60 BUN/Creatinine Ratio 5.71 Glucose 116 H 98 (74-105) mg/dL Calcium 8.9 8.7 (8.4-10.2) mg/dl Total Bilirubin 1.4 H 1.6 H (0.2-1.0) mg/dL Direct Bilirubin 0.4 H (0.0-0.2) mg/dL Indirect Bilirubin 1.2 AST 72 H 60 H (10-42) IU/L ALT 47 43 (10-60) IU/L Alkaline Phosphatase 62 59 (42-121) IU/L Total Protein 8.2 7.2 (6.7-8.2) g/dl Albumin 4.4 3.8 (3.2-5.5) g/dl Globulin 3.8 3.4 Albumin/Globulin Ratio 1.16 1.12 Ethyl Alcohol 32 mg/dL 10/11/19 Range/Units 06:00 WBC 4.2 L (5.0-10.0) 10^3/uL RBC 4.60 (4.6-6.2) 10^6/uL Hgb 14.0 D (14.0-18.0) g/dL Hct 40.0 (40.0-54.0) % MCV 87.0 (80-100) fL MCH 30.4 (27.0-34.0) pg MCHC 35.0 (33.0-35.0) g/dL Plt Count 80 L (150-450) 10^3/uL Neut % (Auto) 50.2 (42.2-75.2) % Lymph % (Auto) 38.6 (20.5-50.1) % [place] % (Auto) 8.6 H (2-8) % Eos % (Auto) 2.4 (1.0-3.0) % Baso % (Auto) 0.2 (0.0-1.0) % Sodium (135-145) mmol/L Potassium (3.6-5.0) mmol/L Chloride (101-111) mmol/L Carbon Dioxide (21.0-31.0) mmol/L Anion Gap BUN (7-18) mg/dL Creatinine (0.6-1.3) mg/dL Est Cr Clr Drug Dosing mL/min Estimated GFR (MDRD) BUN/Creatinine Ratio Glucose (74-105) mg/dL Calcium (8.4-10.2) mg/dl Total Bilirubin (0.2-1.0) mg/dL Direct Bilirubin (0.0-0.2) mg/dL Indirect Bilirubin AST (10-42) IU/L ALT (10-60) IU/L Alkaline Phosphatase (42-121) IU/L Total Protein (6.7-8.2) g/dl Albumin (3.2-5.5) g/dl Globulin Albumin/Globulin Ratio Ethyl Alcohol mg/dL Med Orders - Current: Current Medications Folic Acid (Folic Acid) 1 mg IV DAILY [facility] Last Admin: 10/11/19 09:50 Dose: Not Given Heparin Sodium (Porcine) (Heparin Sodium) 5,000 units SUBCUT Q8HR [facility] Last Admin: 10/11/19 05:58 Dose: Not Given Potassium Chloride/Sodium Chloride (Normal Saline With 20 Meq Kcl) 1,000 mls @ 125 mls/hr IV ASDIRECTED [facility] Last Infusion: 10/11/19 09:57 Dose: Infused Lorazepam (Ativan) 0 mg IVPUSH TITRATE PRN; Protocol PRN Reason: Withdrawal Symptoms Last Admin: 10/11/19 01:23 Dose: 2 mg Lorazepam (Ativan) 0 mg PO TITRATE PRN; Protocol PRN Reason: Withdrawal Symptoms Last Admin: 10/11/19 08:22 Dose: 1 mg Metoprolol Tartrate (Lopressor) 12.5 mg PO BID [facility] Last Admin: 10/11/19 08:23 Dose: 12.5 mg Multivitamins (Thera) 1 each PO BEDTIME [facility] Last Admin: 10/10/19 21:06 Dose: 1 each Ondansetron HCl (Zofran) 4 mg IVPUSH Q4H PRN PRN Reason: Nausea/Vomiting Potassium Chloride (Klor-Con 10) 40 meq PO ONETIME ONE Stop: 10/11/19 10:09 Temazepam (Restoril) 15 mg PO BEDTIME PRN PRN Reason: Sleep Thiamine HCl (Vitamin B-1) 100 mg IV DAILY [facility] Last Admin: 10/11/19 08:21 Dose: 100 mg Discontinued Medications Albuterol/Ipratropium (Duoneb 3.0-0.5 Mg/3 Ml) 3 ml NEB ONETIME ONE Stop: 10/10/19 13:52 Last Admin: 10/10/19 14:16 Dose: Not Given Folic Acid (Folic Acid) 1 mg IV DAILY [facility] Last Admin: 10/10/19 19:15 Dose: Not Given Multivitamins/Minerals 10 ml/Folic Acid 1 mg/ Thiamine HCl 100 mg/ Lactated Ringer's 1,011.2 mls @ 999 mls/hr IV ONETIME ONE Stop: 10/10/19 11:19 Last Admin: 10/10/19 10:34 Dose: 999 mls/hr Lorazepam (Ativan) 2 mg IVPUSH ONETIME ONE Stop: 10/10/19 10:20 Last Admin: 10/10/19 10:33 Dose: 2 mg Methylprednisolone Sodium Succinate (Solu-Medrol) 125 mg IVPUSH ONETIME ONE Stop: 10/10/19 13:52 Last Admin: 10/10/19 14:16 Dose: Not Given - Exam General: Reports: Alert, Oriented Neck: Reports: Supple Lungs: Reports: Clear to Auscultation, Normal Respiratory Effort Cardiovascular: Reports: Regular Rate, Regular Rhythm GI/Abdominal Exam: Normal Bowel Sounds, Soft, Non-Tender Extremities: No Pedal Edema Neurological: Reports: Normal Gait, Normal Speech, Other (no tremor) Psy/Mental Status: Reports: Alert, Normal Affect, Normal Mood
== END 2019-10-11 11:20 | disposition home or self-care (01) ==
LOC: DL.ED 10:21 → UNDOADMOB 14:41 → DL.MS 14:41
PROVIDERS: ADMIT Internal Medicine; ATTEND Internal Medicine
DX: F10.231 Alcohol dependence with withdrawal delirium (principal); I10 Essential (primary) hypertension; F41.9 Anxiety disorder, unspecified; Z79.899 Other long term (current) drug therapy
CPT/HCPCS: 36415; 80048; 80053; 80076; 85025; A9270-GY; G0480; J1644; J2060; J3411; J3480; J3490; J7120

== ENCOUNTER 2019-11-20 11:19 | Observation (INO) | payer BC ==
[2019-11-20] MEDS ORDERED: MVI, Adult with Vitamin K 10 ML, Folic Acid 1 MG, Thiamine 100 MG in Lactated Ringers 1... IV ONE ×4 (12:43)
[2019-11-20 12:47] LABS: ANION GAP 17.4; CHLORIDE,CL 98 mmol/L (101-111); SODIUM,NA 137 mmol/L (135-145)
--- NOTE | 2019-11-20 12:49 | EDM.PDOC ---
ED HPI GENERAL MEDICAL PROBLEM - General Chief Complaint: Drug or Alcohol Abuse Stated Complaint: ALCOHOL WITHDRAWAL Time Seen by Provider: 11/20/19 12:40 Source of Information: Reports: Patient History Limitations: Reports: No Limitations - History of Present Illness INITIAL COMMENTS - FREE TEXT/NARRATIVE: This 34 yo male patient reports to the ED due to possible alcohol withdrawals. The patient reports his last drink was at about midnight last night. The patient reports he woke up this morning feeling very tired. The patient reports he has been drinking about 1/2 of whiskey per day over the past week and a half. The patient reports he has a history of alcohol withdrawals and has had a seizure in the past after he quit drinking. The patient reports his seizure was 2 days after his last drink. The patient has been in alcohol treatment (last treatment was in September). Onset: Today Duration: Constant Location: Reports: Generalized Quality: Reports: Other Severity: Moderate Improves with: Reports: None Worsens with: Reports: None Context: Reports: Other Associated Symptoms: Reports: No Other Symptoms - Related Data Allergies Allergy/AdvReac Type Severity Reaction Status Date / Time No Known Allergies Allergy Verified 10/10/19 17:55 Home Meds: Home Meds Metoprolol Tartrate 12.5 mg PO BID 10/10/19 [History] Multivitamin [Multi-Vitamin Daily] 1 tab PO DAILY 10/10/19 [History] Folic Acid 1 tab PO DAILY 10 Days #10 tab 10/11/19 [Rx] LORazepam [Ativan] 1 mg PO Q4H PRN 2 Days #7 tablet 10/11/19 [Rx] Thiamine [Vitamin B-1] 100 mg PO BEDTIME #10 tab 10/11/19 [Rx] Past Medical History - Past Health History Medical/Surgical History: Denies Medical/Surgical History HEENT History: Reports: None Cardiovascular History: Reports: Hypertension Respiratory History: Reports: None Gastrointestinal History: Reports: Other (See Below) Other Gastrointestinal History: ulcerative as child - no recent issues Genitourinary History: Reports: None Musculoskeletal History: Reports: Other (See Below) Other Musculoskeletal History: sees chiropractor for neck and back pain Neurological History: Reports: Seizure Other Neuro History: ETOH withdrawl seizure Psychiatric History: Reports: Addiction, Anxiety Other Psychiatric History: daily drinker of alcohol, 1/2-1 liter per day Endocrine/Metabolic History: Reports: None Hematologic History: Reports: None Immunologic History: Reports: None Oncologic (Cancer) History: Reports: None Dermatologic History: Reports: None - Infectious Disease History Infectious Disease History: Reports: Chicken Pox - Past Surgical History Other GI Surgeries/Procedures: Colitis and colon surgery Social & Family History - Family History Family Medical History: Noncontributory - Caffeine Use Caffeine Use: Reports: None ED ROS GENERAL - Review of Systems Review Of Systems: Comprehensive ROS is negative, except as noted in HPI. ED EXAM, GENERAL - Physical Exam Exam: See Below Exam Limited By: No Limitations General Appearance: Alert, WD/WN, Moderate Distress Eye Exam: Bilateral Eye: EOMI, Normal Inspection, PERRL Ears: Normal External Exam, Normal Canal, Hearing Grossly Normal, Normal TMs Nose: Normal Inspection, Normal Mucosa, No Blood Throat/Mouth: Normal Inspection, Normal Lips, Normal Teeth, Normal Gums, Normal Oropharynx, Normal Voice, No Airway Compromise Head: Atraumatic, Normocephalic Neck: Normal Inspection, Supple, Non-Tender, Full Range of Motion Respiratory/Chest: No Respiratory Distress, Lungs Clear, Normal Breath Sounds, No Accessory Muscle Use, Chest Non-Tender Cardiovascular: Normal Peripheral Pulses, Regular Rate, Rhythm, No Edema, No Gallop, No JVD, No Murmur, No Rub GI/Abdominal: Normal Bowel Sounds, Soft, Non-Tender, No Organomegaly, No Distention, No Abnormal Bruit, No Mass (Male) Exam: Deferred Rectal (Males) Exam: Deferred Back Exam: Normal Inspection, Full Range of Motion, NT Extremities: Normal Inspection, Normal Range of Motion, Non-Tender, Normal Capillary Refill, No Pedal Edema Neurological: Alert, Oriented, CN II-XII Intact, Normal Cognition, Normal Gait, Normal Reflexes, No Motor/Sensory Deficits Psychiatric: Normal Affect, Normal Mood Skin Exam: Warm, Dry, Intact, Normal Color, No Rash Lymphatic: No Adenopathy Course - Vital Signs Last Recorded V/S: Last Vital Signs Temp 36.6 C 11/20/19 11:38 Pulse 92 11/20/19 11:38 Resp 18 11/20/19 11:38 BP 132/104 H 11/20/19 11:38 Pulse Ox 99 11/20/19 11:38 - Orders/Labs/Meds Orders: Active Orders 24 hr Category Date Time Status EKG 12 Lead [EKG Documentation Completion] [RC] STAT Care 11/20/19 12:13 Active DRUG SCREEN URINE BIORAD [URCHEM] Stat Lab 11/20/19 12:13 Ordered UA RFX ANASTASIIA AND CULT IF INDIC [URIN] Urgent Lab 11/20/19 12:16 Ordered LORazepam [Ativan] Med 11/20/19 13:21 Once 1 mg IVPUSH ONETIME ONE MVI, Adult with Vitamin K [Infuvite Adult] 10 ml Med 11/20/19 12:43 Active Folic Acid 1 mg Thiamine [Vitamin B-1] 100 mg Lactated Ringers [Ringers, Lactated] 1,000 ml IV ONETIME Medication Orders Multivitamins/Minerals 10 ml/Folic Acid 1 mg/ Thiamine HCl 100 mg/ Lactated Ringer's 1,011.2 mls @ 999 mls/hr IV ONETIME ONE Stop: 11/20/19 13:43 Last Admin: 11/20/19 13:13 Dose: 999 mls/hr Labs: Laboratory Tests 11/20/19 11/20/19 11/20/19 Range/Units 12:20 12:20 12:20 WBC 5.3 (5.0-10.0) 10^3/uL RBC 4.96 (4.6-6.2) 10^6/uL Hgb 15.3 (14.0-18.0) g/dL Hct 42.9 (40.0-54.0) % MCV 86.5 (80-100) fL MCH 30.8 (27.0-34.0) pg MCHC 35.7 H (33.0-35.0) g/dL Plt Count 84 L (150-450) 10^3/uL Neut % (Auto) 68.9 (42.2-75.2) % Lymph % (Auto) 19.7 L (20.5-50.1) % [place] % (Auto) 9.8 H (2-8) % Eos % (Auto) 0.8 L (1.0-3.0) % Baso % (Auto) 0.8 (0.0-1.0) % Sodium 137 (135-145) mmol/L Potassium 3.4 L (3.6-5.0) mmol/L Chloride 98 L (101-111) mmol/L Carbon Dioxide 25.0 (21.0-31.0) mmol/L Anion Gap 17.4 BUN 5 L (7-18) mg/dL Creatinine 0.8 (0.6-1.3) mg/dL Est Cr Clr Drug Dosing TNP Estimated GFR (MDRD) > 60 BUN/Creatinine Ratio 6.25 Glucose 98 (74-105) mg/dL Calcium 9.8 (8.4-10.2) mg/dl Total Bilirubin 1.1 H (0.2-1.0) mg/dL AST 234 H (10-42) IU/L ALT 118 H (10-60) IU/L Alkaline Phosphatase 55 (42-121) IU/L Troponin I 0.03 H* (0.00-0.02) ng/ml Total Protein 8.4 H (6.7-8.2) g/dl Albumin 4.9 (3.2-5.5) g/dl Globulin 3.5 Albumin/Globulin Ratio 1.40 Ethyl Alcohol 168 mg/dL Meds: Medications Generic Name Dose Route Start Last Admin Trade Name Freq PRN Reason Stop Dose Admin Multivitamins/Minerals 10 ml/ 1,011.2 mls @ 999 mls/hr 11/20/19 12:43 13:13 Folic Acid 1 mg/ Thiamine HCl IV 11/20/19 13:43 999 mls/hr 100 mg/ Lactated Ringer's ONETIME ONE Administration - Re-Assessments/Exams Free Text/Narrative Re-Assessment/Exam: 11/20/19 13:21 The patient was advised of the examination and lab results during the visit. The patient reports he is starting to feel "shaky" at this time. The patient would like to be admitted for medical detox due to previous seizure as he was going through withdrawals. Departure - Departure Time of Disposition: 13:31 Disposition: Admitted As Inpatient 65 Condition: Fair Clinical Impression: Alcohol abuse Alcohol withdrawal Qualifiers: Complication of substance-induced condition: uncomplicated Qualified Code(s): F10.230 - Alcohol dependence with withdrawal, uncomplicated - Discharge Information *PRESCRIPTION DRUG MONITORING PROGRAM REVIEWED*: Not Applicable *COPY OF PRESCRIPTION DRUG MONITORING REPORT IN PATIENT RUDDY: Not Applicable Forms: ED Department Discharge Care Plan Goals: Discussed the patient's history, examination, lab results and treatments with Dr. Schulte. Dr. Schulte accepted the patient for observation and further care at [facility] in [place]. Sepsis Event Note - Evaluation Sepsis Screening Result: No Definite Risk - Focused Exam Vital Signs: Vital Signs Temp Pulse Resp BP Pulse Ox 11/20/19 11:38 36.6 C 92 18 132/104 H 99 Date Exam was Performed: 11/20/19 Time Exam was Performed: 13:21 - My Orders Last 24 Hours: My Active Orders 11/20/19 12:13 EKG 12 Lead [EKG Documentation Completion] [RC] STAT DRUG SCREEN URINE BIORAD [URCHEM] Stat 11/20/19 12:16 UA RFX ANASTASIIA AND CULT IF INDIC [URIN] Urgent 11/20/19 12:43 MVI, Adult with Vitamin K [Infuvite Adult] 10 ml Folic Acid 1 mg Thiamine [ Vitamin B-1] 100 mg Lactated Ringers [Ringers, Lactated] 1,000 ml IV ONETIME 11/20/19 13:21 LORazepam [Ativan] 1 mg IVPUSH ONETIME ONE - Assessment/Plan Last 24 Hours: My Active Orders 11/20/19 12:13 EKG 12 Lead [EKG Documentation Completion] [RC] STAT DRUG SCREEN URINE BIORAD [URCHEM] Stat 11/20/19 12:16 UA RFX ANASTASIIA AND CULT IF INDIC [URIN] Urgent 11/20/19 12:43 MVI, Adult with Vitamin K [Infuvite Adult] 10 ml Folic Acid 1 mg Thiamine [ Vitamin B-1] 100 mg Lactated Ringers [Ringers, Lactated] 1,000 ml IV ONETIME 11/20/19 13:21 LORazepam [Ativan] 1 mg IVPUSH ONETIME ONE
[2019-11-20] MEDS ORDERED: LORazepam 2 MG/ML SDV IVPUSH ONE (13:21)
[2019-11-20] MEDS ORDERED: Ondansetron 4 MG/2 ML SDV IVPUSH PRN (14:32)
[2019-11-20] MEDS ORDERED: Acetaminophen 325 MG Tab PO PRN (14:32)
[2019-11-20] MEDS ORDERED: Docusate Sodium 100 MG Cap PO PRN (14:32)
[2019-11-20] MEDS ORDERED: Magnesium Hydroxide 400 MG/5 ML Susp 30 ML Cup PO PRN (14:32)
[2019-11-20] MEDS ORDERED: Thiamine 100 MG Tab PO ONE (14:57)
--- NOTE | 2019-11-20 15:02 | PCM.HP ---
H&P History of Present Illness - General Date of Service: 11/20/19 Admit Problem/Dx: Admission Diagnosis/Problem Admission Diagnosis/Problem Alcohol abuse Source of Information: Patient History Limitations: Reports: No Limitations - History of Present Illness Initial Comments - Free Text/Narative: Agusto is a 34-year-old male with past medical history of continued alcohol abuse , previous history of alcohol withdrawal seizures who was brought to the ED for evaluation of possible alcohol withdrawal. As per patient he quit using alcohol last night. This morning he woke up feeling very tired, generally weak. Patient says he has been sober but started drinking about 2 weeks ago. He drinks half a liter of whiskey every day. He states anxiety as the reason why he went back into using alcohol. He is currently going through divorce with his spouse and is going through a lot of anxiety. He denies abdominal pain , nausea, vomiting. He reports shakes to upper extremity. He denies chest pain , shortness of breath, fever, chills. The ED alcohol level was 168. Vitals essentially unremarkable. Patient was started on banana bag. He was sent for admission for further management. Onset of Symptoms: Reports: Sudden Duration of Symptoms: Reports: Hour(s): Location: Reports: Generalized Quality: Reports: Ache Improves with: Reports: None Worsens with: Reports: None Associated Symptoms: Reports: No Other Symptoms - Related Data Allergies/Adverse Reactions: Allergies Allergy/AdvReac Type Severity Reaction Status Date / Time No Known Allergies Allergy Verified 11/20/19 14:39 Home Medications: Home Meds Metoprolol Tartrate 12.5 mg PO BID 10/10/19 [History] Multivitamin [Multi-Vitamin Daily] 1 tab PO DAILY 10/10/19 [History] Folic Acid 1 tab PO DAILY 10 Days #10 tab 10/11/19 [Rx] Past Medical History - Past Health History Medical/Surgical History: Denies Medical/Surgical History HEENT History: Reports: None Cardiovascular History: Reports: Hypertension Respiratory History: Reports: None Gastrointestinal History: Reports: Other (See Below) Other Gastrointestinal History: ulcerative as child - no recent issues Genitourinary History: Reports: None Musculoskeletal History: Reports: Other (See Below) Other Musculoskeletal History: sees chiropractor for neck and back pain Neurological History: Reports: Seizure Other Neuro History: ETOH withdrawl seizure Psychiatric History: Reports: Addiction, Anxiety Other Psychiatric History: daily drinker of alcohol, 1/2-1 liter per day Endocrine/Metabolic History: Reports: None Hematologic History: Reports: None Immunologic History: Reports: None Oncologic (Cancer) History: Reports: None Dermatologic History: Reports: None - Infectious Disease History Infectious Disease History: Reports: Chicken Pox - Past Surgical History Other GI Surgeries/Procedures: Colitis and colon surgery Social & Family History - Family History Family Medical History: Noncontributory - Tobacco Use Smoking Status *Q: Never Smoker Second Hand Smoke Exposure: No - Caffeine Use Caffeine Use: Reports: Coffee, Soda - Alcohol Use Days Per Week of Alcohol Use: 7 Number of Drinks Per Day: 8 Total Drinks Per Week: 56 Date of Last Drink: 11/19/19 - Recreational Drug Use Recreational Drug Use: No H&P Review of Systems - Review of Systems: Review Of Systems: See Below General: Reports: No Symptoms HEENT: Reports: No Symptoms Pulmonary: Reports: No Symptoms Cardiovascular: Reports: No Symptoms Gastrointestinal: Reports: No Symptoms Genitourinary: Reports: No Symptoms Musculoskeletal: Reports: No Symptoms Skin: Reports: No Symptoms Psychiatric: Reports: No Symptoms Neurological: Reports: No Symptoms Hematologic/Lymphatic: Reports: No Symptoms Immunologic: Reports: No Symptoms Exam - Exam Exam: See Below - Vital Signs Vital Signs: Last Vital Signs Temp 99.2 F 11/20/19 14:32 Pulse 84 11/20/19 14:32 Resp 16 11/20/19 14:32 BP 143/96 H 11/20/19 14:32 Pulse Ox 100 11/20/19 14:32 Weight: 199 lb 12.8 oz - Exam Quality Assessment: Supplemental Oxygen, DVT Prophylaxis General: Alert, Oriented, 4 HEENT: PERRLA, Hearing Intact, Mucosa Moist & [place], Nares Patent, Normal Nasal Septum, Posterior Pharynx Clear, Conjunctiva Clear, EOMI, EACs Clear, TMs Clear Neck: Supple, Trachea Midline, 2 Lungs: Clear to Auscultation, Normal Respiratory Effort Cardiovascular: Regular Rate, Regular Rhythm GI/Abdominal Exam: Normal Bowel Sounds, Soft, Non-Tender, No Organomegaly, No Distention, No Abnormal Bruit, No Mass, Pelvis Stable (Male) Exam: No Hernia, Normal Inspection, Normal Prostate, Circumcised Rectal (Males) Exam: Normal Exam, Normal Rectal Tone, Prostate Normal Back Exam: Normal Inspection, Full Range of Motion, NT Extremities: Normal Inspection, Normal Range of Motion, Non-Tender, No Pedal Edema, Normal Capillary Refill, Other (tremors) Skin: Warm, Dry, Intact Neurological: Cranial Nerves Intact, Reflexes Equal Bilateral Neuro Extensive - Mental Status: Alert, Oriented x3, Normal Mood/Affect, Normal Cognition Neuro Extensive - Motor, Sensory, Reflexes: CN II-XII Intact, Normal Gait, Normal Reflexes Psychiatric: Alert, Normal Affect, Normal Mood - Patient Data Lab Results Last 24 hrs: Laboratory Results - last 24 hr 11/20/19 11/20/19 11/20/19 Range/Units 12:20 12:20 12:20 WBC 5.3 (5.0-10.0) 10^3/uL RBC 4.96 (4.6-6.2) 10^6/uL Hgb 15.3 (14.0-18.0) g/dL Hct 42.9 (40.0-54.0) % MCV 86.5 (80-100) fL MCH 30.8 (27.0-34.0) pg MCHC 35.7 H (33.0-35.0) g/dL Plt Count 84 L (150-450) 10^3/uL Neut % (Auto) 68.9 (42.2-75.2) % Lymph % (Auto) 19.7 L (20.5-50.1) % [place] % (Auto) 9.8 H (2-8) % Eos % (Auto) 0.8 L (1.0-3.0) % Baso % (Auto) 0.8 (0.0-1.0) % Sodium 137 (135-145) mmol/L Potassium 3.4 L (3.6-5.0) mmol/L Chloride 98 L (101-111) mmol/L Carbon Dioxide 25.0 (21.0-31.0) mmol/L Anion Gap 17.4 BUN 5 L (7-18) mg/dL Creatinine 0.8 (0.6-1.3) mg/dL Est Cr Clr Drug Dosing TNP Estimated GFR (MDRD) > 60 BUN/Creatinine Ratio 6.25 Glucose 98 (74-105) mg/dL Calcium 9.8 (8.4-10.2) mg/dl Phosphorus (2.5-4.6) mg/dL Magnesium (1.8-2.5) mg/dL Total Bilirubin 1.1 H (0.2-1.0) mg/dL AST 234 H (10-42) IU/L ALT 118 H (10-60) IU/L Alkaline Phosphatase 55 (42-121) IU/L Troponin I 0.03 H* (0.00-0.02) ng/ml Total Protein 8.4 H (6.7-8.2) g/dl Albumin 4.9 (3.2-5.5) g/dl Globulin 3.5 Albumin/Globulin Ratio 1.40 Urine Color (YELLOW) Urine Appearance (CLEAR) Urine pH (5.0-9.0) Ur Specific Orient (1.005-1.030) Urine Protein (NEGATIVE) Urine Glucose (UA) (NEGATIVE) Urine Ketones (NEGATIVE) Urine Occult Blood (NEGATIVE) Urine Nitrite (NEGATIVE) Urine Bilirubin (NEGATIVE) Urine Urobilinogen (0.2-1.0) mg/dL Ur Leukocyte Esterase (NEGATIVE) Urine Opiates Screen (NEGATIVE) Ur Oxycodone Screen (NEGATIVE) Urine Methadone Screen (NEGATIVE) Ur Barbiturates Screen (NEGATIVE) U Tricyclic Antidepress (NEGATIVE) Ur Phencyclidine Scrn (NEGATIVE) Ur Amphetamine Screen (NEGATIVE) U Methamphetamines Scrn (NEGATIVE) Urine MDMA Screen (NEGATIVE) U Benzodiazepines Scrn (NEGATIVE) Urine Cocaine Screen (NEGATIVE) U Marijuana (THC) Screen (NEGATIVE) Ethyl Alcohol 168 mg/dL 11/20/19 11/20/19 11/20/19 Range/Units 12:20 14:13 14:13 WBC (5.0-10.0) 10^3/uL RBC (4.6-6.2) 10^6/uL Hgb (14.0-18.0) g/dL Hct (40.0-54.0) % MCV (80-100) fL MCH (27.0-34.0) pg MCHC (33.0-35.0) g/dL Plt Count (150-450) 10^3/uL Neut % (Auto) (42.2-75.2) % Lymph % (Auto) (20.5-50.1) % [place] % (Auto) (2-8) % Eos % (Auto) (1.0-3.0) % Baso % (Auto) (0.0-1.0) % Sodium (135-145) mmol/L Potassium (3.6-5.0) mmol/L Chloride (101-111) mmol/L Carbon Dioxide (21.0-31.0) mmol/L Anion Gap BUN (7-18) mg/dL Creatinine (0.6-1.3) mg/dL Est Cr Clr Drug Dosing Estimated GFR (MDRD) BUN/Creatinine Ratio Glucose (74-105) mg/dL Calcium (8.4-10.2) mg/dl Phosphorus 2.2 L (2.5-4.6) mg/dL Magnesium 1.6 L (1.8-2.5) mg/dL Total Bilirubin (0.2-1.0) mg/dL AST (10-42) IU/L ALT (10-60) IU/L Alkaline Phosphatase (42-121) IU/L Troponin I (0.00-0.02) ng/ml Total Protein (6.7-8.2) g/dl Albumin (3.2-5.5) g/dl Globulin Albumin/Globulin Ratio Urine Color Yellow (YELLOW) Urine Appearance Clear (CLEAR) Urine pH 6.0 (5.0-9.0) Ur Specific Orient 1.010 (1.005-1.030) Urine Protein Negative (NEGATIVE) Urine Glucose (UA) Negative (NEGATIVE) Urine Ketones Negative (NEGATIVE) Urine Occult Blood Negative (NEGATIVE) Urine Nitrite Negative (NEGATIVE) Urine Bilirubin Negative (NEGATIVE) Urine Urobilinogen 0.2 (0.2-1.0) mg/dL Ur Leukocyte Esterase Negative (NEGATIVE) Urine Opiates Screen Negative (NEGATIVE) Ur Oxycodone Screen Negative (NEGATIVE) Urine Methadone Screen Negative (NEGATIVE) Ur Barbiturates Screen Negative (NEGATIVE) U Tricyclic Antidepress Negative (NEGATIVE) Ur Phencyclidine Scrn Negative (NEGATIVE) Ur Amphetamine Screen Negative (NEGATIVE) U Methamphetamines Scrn Negative (NEGATIVE) Urine MDMA Screen Negative (NEGATIVE) U Benzodiazepines Scrn Negative (NEGATIVE) Urine Cocaine Screen Negative (NEGATIVE) U Marijuana (THC) Screen Negative (NEGATIVE) Ethyl Alcohol mg/dL Result Diagrams: 11/20/19 12:20 11/20/19 12:20 - Problem List (1) Alcohol intoxication SNOMED Code(s): 98166896 ICD Code: F10.929 - ALCOHOL USE, UNSPECIFIED WITH INTOXICATION, UNSPECIFIED Status: Acute Current Visit: Yes (2) Alcohol abuse SNOMED Code(s): 41748720 ICD Code: F10.10 - ALCOHOL ABUSE, UNCOMPLICATED Status: Acute Current Visit: No (3) Alcohol withdrawal SNOMED Code(s): 594924192 ICD Code: F10.239 - ALCOHOL DEPENDENCE WITH WITHDRAWAL, UNSPECIFIED Status : Acute Current Visit: No Qualifiers: Complication of substance-induced condition: uncomplicated Qualified Code(s ): F10.230 - Alcohol dependence with withdrawal, uncomplicated Problem List Initiated/Reviewed/Updated: Yes Orders Last 24hrs: Active Orders 24 hr Category Date Time Status Admission Diagnosis [ADT] Urgent ADT 11/20/19 13:26 Ordered Admission Status [Patient Status] [ADT] Routine ADT 11/20/19 13:26 Active Ambulate [RC] ASDIRECTED Care 11/20/19 14:32 Active Cardiac Monitoring [RC] CONTINUOUS Care 11/20/19 14:32 Active Intake and Output [RC] QSHIFT Care 11/20/19 14:32 Active Notify Provider Vital Signs [RC] ASDIRECTED Care 11/20/19 14:32 Active Oxygen Therapy [RC] .PRN Care 11/20/19 14:32 Active VTE/DVT Education [RC] PER UNIT ROUTINE Care 11/20/19 14:32 Active Vital Signs [RC] Q4H Care 11/20/19 14:32 Active PT Evaluation and Treatment [CONS] Routine Cons 11/20/19 14:32 Active Clear Liquid Diet [DIET] Diet 11/20/19 Lunch Active CBC W/O DIFF,HEMOGRAM [HEME] DAILY Lab 11/21/19 07:00 Ordered HEPATIC FUNCTION PANEL,HFP [CHEM] DAILY Lab 11/21/19 07:00 Ordered Acetaminophen [Tylenol] Med 11/20/19 14:32 Active 650 mg PO Q4H PRN Docusate Sodium [Colace] Med 11/20/19 14:32 Active 100 mg PO BID PRN Folic Acid Med 11/21/19 09:00 Ordered 1 tab PO DAILY Heparin Sodium Med 11/20/19 21:00 Pending 5,000 units SUBCUT Q12HR Magnesium Hydroxide [Milk of Magnesia] Med 11/20/19 14:32 Active 30 ml PO Q12H PRN Metoprolol Tartrate [Lopressor] Med 11/20/19 21:00 Ordered 12.5 mg PO BID Multivitamin [Multi-Vitamin Daily] Med 11/21/19 09:00 Ordered 1 tab PO DAILY Ondansetron [Zofran] Med 11/20/19 14:32 Active 4 mg IVPUSH Q6H PRN Sodium Chloride 0.9% [Normal Saline] 1,000 ml Med 11/20/19 14:45 Active IV ASDIRECTED Thiamine [Vitamin B-1] Med 11/20/19 14:57 Once 100 mg PO ONETIME ONE Resuscitation Status Routine Resus Stat 11/20/19 14:32 Ordered Medication Orders Acetaminophen (Tylenol) 650 mg PO Q4H PRN PRN Reason: Pain (Mild 1-3)/fever Docusate Sodium (Colace) 100 mg PO BID PRN PRN Reason: Constipation Heparin Sodium (Porcine) (Heparin Sodium) 5,000 units SUBCUT Q12HR DESIREE Sodium Chloride (Normal Saline) 1,000 mls @ 150 mls/hr IV ASDIRECTED DESIREE Magnesium Hydroxide (Milk Of Magnesia) 30 ml PO Q12H PRN PRN Reason: Constipation Ondansetron HCl (Zofran) 4 mg IVPUSH Q6H PRN PRN Reason: Nausea/Vomiting Assessment/Plan Comment:: #Alcohol intoxication -Patient presented to the ED for evaluation of possible withdrawal -His last alcohol use was last night. He woke up if fatigue, weakness -Admit to general medical floor -Monitor of alcohol withdrawal symptoms -s/p banana bag x1 -IV maintenance fluids with NS -Check electrolytes and replace as needed -[facility] protocol -Fall/aspiration/seizure precaution -Ambien/folic acid/multivitamin supplements #History of alcohol-related seizures -Seizure precaution -Ativan IV push PRN for seizures #Abnormal LFT alcoholic hepatitis but -Advised to quit using alcohol -Monitor LFTs #Chronic alcohol abuse disorder -Patient advised on quitting -Social work to assist with outpatient mental dependency program #Anxiety/depression -Psych consult upon discharge -Will consider Zoloft #Hypertension -BP within acceptable limits -Continue metoprolol #Regular diet #Code -Full
[2019-11-20] MEDS: Sodium Chloride 0.9% 1,000 ML IV SCH ×2 (15:33→22:02)
[2019-11-20] MEDS: LORazepam 1 MG Tab PO PRN ×2 (17:16→18:21)
[2019-11-20] MEDS: LORazepam 2 MG/ML SDV IVPUSH PRN ×2 (19:54→21:15)
[2019-11-20] MEDS: Metoprolol Tartrate 25 MG Tab PO SCH ×2 (19:55→21:14)
[2019-11-20] MEDS ORDERED: Heparin Sodium 5,000 Units/ML Vial SUBCUT SCH (21:00)
[2019-11-21] MEDS: LORazepam 1 MG Tab PO PRN ×2 (02:57→11:50)
[2019-11-21] MEDS: Sodium Chloride 0.9% 1,000 ML IV SCH (04:45)
[2019-11-21] MEDS: Metoprolol Tartrate 25 MG Tab PO SCH (08:03)
[2019-11-21] MEDS ORDERED: Folic Acid 1 MG Tab PO SCH (09:00)
[2019-11-21] MEDS ORDERED: Multivitamins,Therapeutic Tab PO SCH (09:00)
--- NOTE | 2019-11-21 10:20 | PCM.DCSUM1 ---
Discharge Summary - Hospital Course Free Text/Narrative:: Agusto is a 34-year-old male with past medical history of continued alcohol abuse , previous history of alcohol withdrawal seizures who was brought to the ED for evaluation of possible alcohol withdrawal. He was admitted for acute alcohol intoxication with possible withdrawal symptoms. Alcohol level is 168. He was managed with CIWA protocol. His symptoms have improved significantly. This morning she has no new complaint. No nausea no vomiting. No shaking. Social work was consulted. Patient's has been arranged to go to outpatient chemical dependency program upon discharge today where he will be evaluated and also be seen by psychiatry. He was discharged in a stable. Diagnosis: Stroke: No - Discharge Data Discharge Date: 11/21/19 Discharge Disposition: Home, Self-Care 01 Condition: Good - Referral to Home Health Primary Care Physician: PCP Unobtainable - Discharge Diagnosis/Problem(s) (1) Alcohol intoxication SNOMED Code(s): 51695663 ICD Code: F10.929 - ALCOHOL USE, UNSPECIFIED WITH INTOXICATION, UNSPECIFIED Status: Acute Current Visit: Yes (2) Alcohol abuse SNOMED Code(s): 50805048 ICD Code: F10.10 - ALCOHOL ABUSE, UNCOMPLICATED Status: Acute Current Visit: No (3) Alcohol withdrawal SNOMED Code(s): 845603778 ICD Code: F10.239 - ALCOHOL DEPENDENCE WITH WITHDRAWAL, UNSPECIFIED Status : Acute Current Visit: No Qualifiers: Complication of substance-induced condition: uncomplicated Qualified Code(s ): F10.230 - Alcohol dependence with withdrawal, uncomplicated - Patient Summary/Data Consults: Consultations 11/20/19 14:32 PT Evaluation and Treatment [CONS] Routine - Patient Instructions Diet: Regular Diet as Tolerated Activity: As Tolerated Driving: Do Not Drive Showering/Bathing: May Shower Notify Provider of: Nausea and/or Vomiting - Discharge Plan *PRESCRIPTION DRUG MONITORING PROGRAM REVIEWED*: Not Applicable *COPY OF PRESCRIPTION DRUG MONITORING REPORT IN PATIENT RUDDY: Not Applicable Prescriptions/Med Rec: Thiamine [Vitamin B-1] 100 mg PO DAILY #30 tab Home Medications: Home Meds Metoprolol Tartrate 12.5 mg PO BID 10/10/19 [History] Multivitamin [Multi-Vitamin Daily] 1 tab PO DAILY 10/10/19 [History] Folic Acid 1 tab PO DAILY 10 Days #10 tab 10/11/19 [Rx] Thiamine [Vitamin B-1] 100 mg PO DAILY #30 tab 11/21/19 [Rx] Forms: ED Department Discharge Referrals: PCP,Unobtain [Primary Care Provider] - - Discharge Summary/Plan Comment DC Time >30 min.: Yes - General Info Date of Service: 11/21/19 Admission Dx/Problem (Free Text: Admission Diagnosis/Problem Admission Diagnosis/Problem Alcohol abuse Functional Status: Reports: Pain Controlled - Review of Systems General: Reports: No Symptoms HEENT: Reports: No Symptoms Pulmonary: Reports: No Symptoms Cardiovascular: Reports: No Symptoms Gastrointestinal: Reports: No Symptoms Genitourinary: Reports: No Symptoms Musculoskeletal: Reports: No Symptoms Skin: Reports: No Symptoms Neurological: Reports: No Symptoms Psychiatric: Reports: No Symptoms - Patient Data Vitals - Most Recent: Last Vital Signs Temp 98.5 F 11/21/19 07:44 Pulse 68 11/21/19 08:03 Resp 18 11/21/19 07:44 BP 144/94 H 11/21/19 08:03 Pulse Ox 91 L 11/21/19 07:44 Weight - Most Recent: 199 lb 12.8 oz I&O - Last 24 hours: Intake & Output 11/20/19 11/21/19 11/21/19 22:59 06:59 14:59 Intake Total 300 2000 Balance 300 2000 Lab Results - Last 24 hrs: Laboratory Results - last 24 hr 11/20/19 11/20/19 11/20/19 Range/Units 12:20 12:20 12:20 WBC 5.3 (5.0-10.0) 10^3/uL RBC 4.96 (4.6-6.2) 10^6/uL Hgb 15.3 (14.0-18.0) g/dL Hct 42.9 (40.0-54.0) % MCV 86.5 (80-100) fL MCH 30.8 (27.0-34.0) pg MCHC 35.7 H (33.0-35.0) g/dL Plt Count 84 L (150-450) 10^3/uL Neut % (Auto) 68.9 (42.2-75.2) % Lymph % (Auto) 19.7 L (20.5-50.1) % [place] % (Auto) 9.8 H (2-8) % Eos % (Auto) 0.8 L (1.0-3.0) % Baso % (Auto) 0.8 (0.0-1.0) % Sodium 137 (135-145) mmol/L Potassium 3.4 L (3.6-5.0) mmol/L Chloride 98 L (101-111) mmol/L Carbon Dioxide 25.0 (21.0-31.0) mmol/L Anion Gap 17.4 BUN 5 L (7-18) mg/dL Creatinine 0.8 (0.6-1.3) mg/dL Est Cr Clr Drug Dosing TNP Estimated GFR (MDRD) > 60 BUN/Creatinine Ratio 6.25 Glucose 98 (74-105) mg/dL Calcium 9.8 (8.4-10.2) mg/dl Phosphorus (2.5-4.6) mg/dL Magnesium (1.8-2.5) mg/dL Total Bilirubin 1.1 H (0.2-1.0) mg/dL Direct Bilirubin (0.0-0.2) mg/dL Indirect Bilirubin AST 234 H (10-42) IU/L ALT 118 H (10-60) IU/L Alkaline Phosphatase 55 (42-121) IU/L Troponin I 0.03 H* (0.00-0.02) ng/ml Total Protein 8.4 H (6.7-8.2) g/dl Albumin 4.9 (3.2-5.5) g/dl Globulin 3.5 Albumin/Globulin Ratio 1.40 Urine Color (YELLOW) Urine Appearance (CLEAR) Urine pH (5.0-9.0) Ur Specific [place] (1.005-1.030) Urine Protein (NEGATIVE) Urine Glucose (UA) (NEGATIVE) Urine Ketones (NEGATIVE) Urine Occult Blood (NEGATIVE) Urine Nitrite (NEGATIVE) Urine Bilirubin (NEGATIVE) Urine Urobilinogen (0.2-1.0) mg/dL Ur Leukocyte Esterase (NEGATIVE) Urine Opiates Screen (NEGATIVE) Ur Oxycodone Screen (NEGATIVE) Urine Methadone Screen (NEGATIVE) Ur Barbiturates Screen (NEGATIVE) U Tricyclic Antidepress (NEGATIVE) Ur Phencyclidine Scrn (NEGATIVE) Ur Amphetamine Screen (NEGATIVE) U Methamphetamines Scrn (NEGATIVE) Urine MDMA Screen (NEGATIVE) U Benzodiazepines Scrn (NEGATIVE) Urine Cocaine Screen (NEGATIVE) U Marijuana (THC) Screen (NEGATIVE) Ethyl Alcohol 168 mg/dL 11/20/19 11/20/19 11/20/19 Range/Units 12:20 14:13 14:13 WBC (5.0-10.0) 10^3/uL RBC (4.6-6.2) 10^6/uL Hgb (14.0-18.0) g/dL Hct (40.0-54.0) % MCV (80-100) fL MCH (27.0-34.0) pg MCHC (33.0-35.0) g/dL Plt Count (150-450) 10^3/uL Neut % (Auto) (42.2-75.2) % Lymph % (Auto) (20.5-50.1) % [place] % (Auto) (2-8) % Eos % (Auto) (1.0-3.0) % Baso % (Auto) (0.0-1.0) % Sodium (135-145) mmol/L Potassium (3.6-5.0) mmol/L Chloride (101-111) mmol/L Carbon Dioxide (21.0-31.0) mmol/L Anion Gap BUN (7-18) mg/dL Creatinine (0.6-1.3) mg/dL Est Cr Clr Drug Dosing Estimated GFR (MDRD) BUN/Creatinine Ratio Glucose (74-105) mg/dL Calcium (8.4-10.2) mg/dl Phosphorus 2.2 L (2.5-4.6) mg/dL Magnesium 1.6 L (1.8-2.5) mg/dL Total Bilirubin (0.2-1.0) mg/dL Direct Bilirubin (0.0-0.2) mg/dL Indirect Bilirubin AST (10-42) IU/L ALT (10-60) IU/L Alkaline Phosphatase (42-121) IU/L Troponin I (0.00-0.02) ng/ml Total Protein (6.7-8.2) g/dl Albumin (3.2-5.5) g/dl Globulin Albumin/Globulin Ratio Urine Color Yellow (YELLOW) Urine Appearance Clear (CLEAR) Urine pH 6.0 (5.0-9.0) Ur Specific [place] 1.010 (1.005-1.030) Urine Protein Negative (NEGATIVE) Urine Glucose (UA) Negative (NEGATIVE) Urine Ketones Negative (NEGATIVE) Urine Occult Blood Negative (NEGATIVE) Urine Nitrite Negative (NEGATIVE) Urine Bilirubin Negative (NEGATIVE) Urine Urobilinogen 0.2 (0.2-1.0) mg/dL Ur Leukocyte Esterase Negative (NEGATIVE) Urine Opiates Screen Negative (NEGATIVE) Ur Oxycodone Screen Negative (NEGATIVE) Urine Methadone Screen Negative (NEGATIVE) Ur Barbiturates Screen Negative (NEGATIVE) U Tricyclic Antidepress Negative (NEGATIVE) Ur Phencyclidine Scrn Negative (NEGATIVE) Ur Amphetamine Screen Negative (NEGATIVE) U Methamphetamines Scrn Negative (NEGATIVE) Urine MDMA Screen Negative (NEGATIVE) U Benzodiazepines Scrn Negative (NEGATIVE) Urine Cocaine Screen Negative (NEGATIVE) U Marijuana (THC) Screen Negative (NEGATIVE) Ethyl Alcohol mg/dL 11/21/19 11/21/19 Range/Units 06:04 06:04 WBC 3.8 L (5.0-10.0) 10^3/uL RBC 4.82 (4.6-6.2) 10^6/uL Hgb 14.8 (14.0-18.0) g/dL Hct 42.5 (40.0-54.0) % MCV 88.2 (80-100) fL MCH 30.7 (27.0-34.0) pg MCHC 34.8 (33.0-35.0) g/dL Plt Count 67 L (150-450) 10^3/uL Neut % (Auto) (42.2-75.2) % Lymph % (Auto) (20.5-50.1) % [place] % (Auto) (2-8) % Eos % (Auto) (1.0-3.0) % Baso % (Auto) (0.0-1.0) % Sodium (135-145) mmol/L Potassium (3.6-5.0) mmol/L Chloride (101-111) mmol/L Carbon Dioxide (21.0-31.0) mmol/L Anion Gap BUN (7-18) mg/dL Creatinine (0.6-1.3) mg/dL Est Cr Clr Drug Dosing Estimated GFR (MDRD) BUN/Creatinine Ratio Glucose (74-105) mg/dL Calcium (8.4-10.2) mg/dl Phosphorus (2.5-4.6) mg/dL Magnesium (1.8-2.5) mg/dL Total Bilirubin 1.7 H (0.2-1.0) mg/dL Direct Bilirubin 0.4 H (0.0-0.2) mg/dL Indirect Bilirubin 1.3 AST 143 H (10-42) IU/L ALT 89 H (10-60) IU/L Alkaline Phosphatase 49 (42-121) IU/L Troponin I (0.00-0.02) ng/ml Total Protein 7.4 (6.7-8.2) g/dl Albumin 4.2 (3.2-5.5) g/dl Globulin 3.2 Albumin/Globulin Ratio 1.31 Urine Color (YELLOW) Urine Appearance (CLEAR) Urine pH (5.0-9.0) Ur Specific [place] (1.005-1.030) Urine Protein (NEGATIVE) Urine Glucose (UA) (NEGATIVE) Urine Ketones (NEGATIVE) Urine Occult Blood (NEGATIVE) Urine Nitrite (NEGATIVE) Urine Bilirubin (NEGATIVE) Urine Urobilinogen (0.2-1.0) mg/dL Ur Leukocyte Esterase (NEGATIVE) Urine Opiates Screen (NEGATIVE) Ur Oxycodone Screen (NEGATIVE) Urine Methadone Screen (NEGATIVE) Ur Barbiturates Screen (NEGATIVE) U Tricyclic Antidepress (NEGATIVE) Ur Phencyclidine Scrn (NEGATIVE) Ur Amphetamine Screen (NEGATIVE) U Methamphetamines Scrn (NEGATIVE) Urine MDMA Screen (NEGATIVE) U Benzodiazepines Scrn (NEGATIVE) Urine Cocaine Screen (NEGATIVE) U Marijuana (THC) Screen (NEGATIVE) Ethyl Alcohol mg/dL Med Orders - Current: Current Medications Acetaminophen (Tylenol) 650 mg PO Q4H PRN PRN Reason: Pain (Mild 1-3)/fever Docusate Sodium (Colace) 100 mg PO BID PRN PRN Reason: Constipation Folic Acid (Folic Acid) 1 mg PO DAILY [facility] Last Admin: 11/21/19 08:03 Dose: 1 mg Sodium Chloride (Normal Saline) 1,000 mls @ 150 mls/hr IV ASDIRECTED DESIREE Last Admin: 11/21/19 04:45 Dose: 150 mls/hr Lorazepam (Ativan) 0 mg IVPUSH TITRATE PRN; Protocol PRN Reason: Withdrawal Symptoms Last Admin: 11/20/19 21:15 Dose: 2 mg Lorazepam (Ativan) 0 mg PO TITRATE PRN; Protocol PRN Reason: Withdrawal Symptoms Last Admin: 11/21/19 02:57 Dose: 1 mg Magnesium Hydroxide (Milk Of Magnesia) 30 ml PO Q12H PRN PRN Reason: Constipation Metoprolol Tartrate (Lopressor) 12.5 mg PO BID [facility] Last Admin: 11/21/19 08:03 Dose: 12.5 mg Multivitamins (Thera) 1 each PO DAILY [facility] Last Admin: 11/21/19 08:04 Dose: 1 each Ondansetron HCl (Zofran) 4 mg IVPUSH Q6H PRN PRN Reason: Nausea/Vomiting Discontinued Medications Heparin Sodium (Porcine) (Heparin Sodium) 5,000 units SUBCUT Q12HR [facility] Multivitamins/Minerals 10 ml/Folic Acid 1 mg/ Thiamine HCl 100 mg/ Lactated Ringer's 1,011.2 mls @ 999 mls/hr IV ONETIME ONE Stop: 11/20/19 13:43 Last Admin: 11/20/19 13:13 Dose: 999 mls/hr Lorazepam (Ativan) 1 mg IVPUSH ONETIME ONE Stop: 11/20/19 13:22 Last Admin: 11/20/19 14:06 Dose: 1 mg Thiamine HCl (Vitamin B-1) 100 mg PO ONETIME ONE Stop: 11/20/19 14:58 Last Admin: 11/20/19 15:34 Dose: 100 mg - Exam General: Reports: Alert, Oriented HEENT: Reports: Pupils Equal, Pupils Reactive, EOMI, Mucous Membr. Moist/[place] Neck: Reports: Supple Lungs: Reports: Clear to Auscultation, Normal Respiratory Effort Cardiovascular: Reports: Regular Rate, Regular Rhythm GI/Abdominal Exam: Normal Bowel Sounds, Soft, Non-Tender, No Organomegaly, No Distention, No Abnormal Bruit, No Mass, Pelvis Stable (Male) Exam: No Hernia, Normal Inspection, Normal Prostate, Circumcised Rectal (Males) Exam: Normal Exam, Normal Rectal Tone, Prostate Normal Back Exam: Reports: Normal Inspection, Full Range of Motion Extremities: Normal Inspection, Normal Range of Motion, Non-Tender, No Pedal Edema, Normal Capillary Refill Skin: Reports: Warm, Dry, Intact Wound/Incisions: Reports: Healing Well Neurological: Reports: No New Focal Deficit Psy/Mental Status: Reports: Alert, Normal Affect, Normal Mood
== END 2019-11-21 12:30 | disposition home or self-care (01) ==
LOC: DL.ED 11:19 → DL.MS 13:26
PROVIDERS: ADMIT Student in an Organized Health Care Education/Training Program; ATTEND Student in an Organized Health Care Education/Training Program
DX: F10.229 Alcohol dependence with intoxication, unspecified (principal); F10.239 Alcohol dependence with withdrawal, unspecified; R94.5 Abnormal results of liver function studies; I10 Essential (primary) hypertension; F41.9 Anxiety disorder, unspecified; F32.9 Major depressive disorder, single episode, unspecified; Y90.6 Blood alcohol level of 120-199 mg/100 ml; Z86.69 Personal history of other diseases of the nervous system and sense organs; Z79.899 Other long term (current) drug therapy
CPT/HCPCS: 36415; 80053; 80076; 80305-QW; 80307; 81003; 83735; 84100; 84484; 85025; 85027; 93005; 96365; 96375; 99285-25; A9270-GY; J2060; J3411; J3490; J7030; J7120

== ENCOUNTER 2019-12-07 14:44 | Observation (INO) | payer BC ==
[2019-12-07] MEDS ORDERED: MVI, Adult with Vitamin K 10 ML, Thiamine 100 MG, Folic Acid 1 MG in Lactated Ringers 1... IV ONE ×4 (14:57)
[2019-12-07] MEDS ORDERED: LORazepam 2 MG/ML SDV IVPUSH ONE ×2 (14:58→15:29)
[2019-12-07] MEDS: Sodium Chloride 0.9% 10 ML Syringe FLUSH PRN ×2 (15:17→18:39)
--- NOTE | 2019-12-07 15:25 | EDM.PDOC ---
ED HPI GENERAL MEDICAL PROBLEM - General Source of Information: Reports: Patient History Limitations: Reports: No Limitations - History of Present Illness Onset: Today Duration: Constant Severity: Moderate Improves with: Reports: None Worsens with: Reports: None Context: Reports: Other (recent alcohol consumption, history of Etoh abuse) <Leslie Albert - Last Filed: 12/07/19 15:52> <Kun Dumont - Last Filed: 12/07/19 15:55> - General Chief Complaint: Drug or Alcohol Abuse Stated Complaint: Dehydrated, alcohol withdrawal Time Seen by Provider: 12/07/19 15:10 - History of Present Illness INITIAL COMMENTS - FREE TEXT/NARRATIVE: Patient presents to the ED by private vehicle with concerns of alcohol withdrawal. The patient states that he has been in treatment for the past month , a recent social situation with his significant other caused him to start drinking again on Tuesday. The patient states his last drink was last night at approximately 12 am. He reports half a bottle of Rum prior to midnight. The patient reports constant shaking, he reports a prior history of seizure with alcohol withdrawal. (Leslie Albert) - Related Data Allergies Allergy/AdvReac Type Severity Reaction Status Date / Time No Known Allergies Allergy Verified 12/07/19 15:20 Home Meds: Home Meds Metoprolol Tartrate 12.5 mg PO BID 10/10/19 [History] Multivitamin [Multi-Vitamin Daily] 1 tab PO DAILY 10/10/19 [History] Folic Acid 1 tab PO DAILY 10 Days #10 tab 10/11/19 [Rx] Thiamine [Vitamin B-1] 100 mg PO DAILY #30 tab 11/21/19 [Rx] Past Medical History - Past Health History Medical/Surgical History: Denies Medical/Surgical History HEENT History: Reports: None Cardiovascular History: Reports: Hypertension Respiratory History: Reports: None Gastrointestinal History: Reports: Other (See Below) Other Gastrointestinal History: ulcerative as child - no recent issues Genitourinary History: Reports: None Musculoskeletal History: Reports: Other (See Below) Other Musculoskeletal History: sees chiropractor for neck and back pain Neurological History: Reports: Seizure Other Neuro History: ETOH withdrawl seizure Psychiatric History: Reports: Addiction, Anxiety Other Psychiatric History: daily drinker of alcohol, 1/2-1 liter per day Endocrine/Metabolic History: Reports: None Hematologic History: Reports: None Immunologic History: Reports: None Oncologic (Cancer) History: Reports: None Dermatologic History: Reports: None - Infectious Disease History Infectious Disease History: Reports: Chicken Pox - Past Surgical History Other GI Surgeries/Procedures: Colitis and colon surgery <Leslie Albert - Last Filed: 12/07/19 15:52> Social & Family History - Family History Family Medical History: Noncontributory - Caffeine Use Caffeine Use: Reports: Coffee, Soda - Alcohol Use Alcohol Use History: Yes Date of Last Drink: 12/07/19 Time of Last Drink: 12:00 Alcohol Use in Last Twelve Months: Yes Alcohol Use Frequency: Daily Alcohol Use Comment: Patient reports seizure activity with prior alcohol withdrawal. Was recently in treatment for alcoholism. <Leslie Albert - Last Filed: 12/07/19 15:52> ED ROS GENERAL - Review of Systems Review Of Systems: See Below Constitutional: Reports: Chills. Denies: Fever Respiratory: Denies: Shortness of Breath, Cough Cardiovascular: Denies: Chest Pain, Palpitations GI/Abdominal: Denies: Abdominal Pain, Vomiting Neurological: Reports: Tremors. Denies: Confusion Psychiatric: Denies: Confusion <Leslie Albert - Last Filed: 12/07/19 15:52> - Physical Exam Exam: See Below Exam Limited By: No Limitations General Appearance: Alert, Anxious, Mild Distress Throat/Mouth: Other (dry mucous membranes) Head Exam: Atraumatic, Normocephalic Neck: Normal Inspection, Full Range of Motion Respiratory/Chest: No Respiratory Distress, Lungs Clear, Normal Breath Sounds Cardiovascular: Normal Peripheral Pulses, Regular Rate, Rhythm, No Murmur GI/Abdominal: Soft, Non-Tender, No Distention Neuro Exam (Abbreviated): Alert, Oriented Skin Exam: Dry <Leslie Albert - Last Filed: 12/07/19 15:52> Course <Leslie Albert - Last Filed: 12/07/19 15:52> <Kun Dumont - Last Filed: 12/07/19 15:55> - Vital Signs Last Recorded V/S: Last Vital Signs Temp 98.6 F 12/07/19 14:45 Pulse 114 H 12/07/19 14:45 Resp 26 H 12/07/19 14:45 BP 158/100 H 12/07/19 14:45 Pulse Ox 100 12/07/19 14:45 - Orders/Labs/Meds Orders: Active Orders 24 hr Category Date Time Status Peripheral IV Care [RC] . DIRECTED Care 12/07/19 14:57 Active DRUG SCREEN URINE BIORAD [URCHEM] Stat Lab 12/07/19 14:57 Ordered UA RFX ANASTASIIA AND CULT IF INDIC [URIN] Stat Lab 12/07/19 14:57 Ordered MVI, Adult with Vitamin K [Infuvite Adult] 10 ml Med 12/07/19 14:57 Active Thiamine [Vitamin B-1] 100 mg Folic Acid 1 mg Lactated Ringers [Ringers, Lactated] 1,000 ml IV .BOLUS Sodium Chloride 0.9% [Saline Flush] Med 12/07/19 14:57 Active 10 ml FLUSH ASDIRECTED PRN Peripheral IV Insertion Adult [OM.PC] Stat Oth 12/07/19 14:57 Ordered Medication Orders Multivitamins/Minerals 10 ml/Thiamine HCl 100 mg/ Folic Acid 1 mg/ Lactated Ringer's 1,011.2 mls @ 999 mls/hr IV .BOLUS ONE Stop: 12/07/19 15:57 Last Admin: 12/07/19 15:17 Dose: 999 mls/hr Sodium Chloride (Saline Flush) 10 ml FLUSH ASDIRECTED PRN PRN Reason: Keep Vein Open Last Admin: 12/07/19 15:17 Dose: 10 ml Labs: Laboratory Tests 12/07/19 12/07/19 12/07/19 Range/Units 15:09 15:09 15:09 WBC 4.2 L (5.0-10.0) 10^3/uL RBC 5.05 (4.6-6.2) 10^6/uL Hgb 15.5 (14.0-18.0) g/dL Hct 43.8 (40.0-54.0) % MCV 86.7 (80-100) fL MCH 30.7 (27.0-34.0) pg MCHC 35.4 H (33.0-35.0) g/dL Plt Count 59 L (150-450) 10^3/uL Neut % (Auto) 73.8 (42.2-75.2) % Lymph % (Auto) 17.4 L (20.5-50.1) % [place] % (Auto) 7.6 (2-8) % Eos % (Auto) 0.5 L (1.0-3.0) % Baso % (Auto) 0.7 (0.0-1.0) % PT 11.4 (9.0-12.0) SEC INR 1.1 (0.9-1.2) APTT 25.6 (22.0-34.0) SEC Sodium 138 (135-145) mmol/L Potassium 3.4 L (3.6-5.0) mmol/L Chloride 97 L (101-111) mmol/L Carbon Dioxide 21.0 (21.0-31.0) mmol/L Anion Gap 23.4 BUN 8 (7-18) mg/dL Creatinine 0.9 (0.6-1.3) mg/dL Est Cr Clr Drug Dosing 103.38 mL/min Estimated GFR (MDRD) > 60 BUN/Creatinine Ratio 8.88 Glucose 94 (74-105) mg/dL Calcium 9.1 (8.4-10.2) mg/dl Magnesium 1.3 L (1.8-2.5) mg/dL Total Bilirubin 1.7 H (0.2-1.0) mg/dL AST 429 H (10-42) IU/L ALT 194 H (10-60) IU/L Alkaline Phosphatase 81 (42-121) IU/L Ammonia (11-35) umol/L Total Protein 8.4 H (6.7-8.2) g/dl Albumin 4.7 (3.2-5.5) g/dl Globulin 3.7 Albumin/Globulin Ratio 1.27 Amylase 108 H (28-100) U/L Lipase 56 H (22-51) U/L Ethyl Alcohol 187 mg/dL 12/07/19 Range/Units 15:09 WBC (5.0-10.0) 10^3/uL RBC (4.6-6.2) 10^6/uL Hgb (14.0-18.0) g/dL Hct (40.0-54.0) % MCV (80-100) fL MCH (27.0-34.0) pg MCHC (33.0-35.0) g/dL Plt Count (150-450) 10^3/uL Neut % (Auto) (42.2-75.2) % Lymph % (Auto) (20.5-50.1) % [place] % (Auto) (2-8) % Eos % (Auto) (1.0-3.0) % Baso % (Auto) (0.0-1.0) % PT (9.0-12.0) SEC INR (0.9-1.2) APTT (22.0-34.0) SEC Sodium (135-145) mmol/L Potassium (3.6-5.0) mmol/L Chloride (101-111) mmol/L Carbon Dioxide (21.0-31.0) mmol/L Anion Gap BUN (7-18) mg/dL Creatinine (0.6-1.3) mg/dL Est Cr Clr Drug Dosing mL/min Estimated GFR (MDRD) BUN/Creatinine Ratio Glucose (74-105) mg/dL Calcium (8.4-10.2) mg/dl Magnesium (1.8-2.5) mg/dL Total Bilirubin (0.2-1.0) mg/dL AST (10-42) IU/L ALT (10-60) IU/L Alkaline Phosphatase (42-121) IU/L Ammonia 31 (11-35) umol/L Total Protein (6.7-8.2) g/dl Albumin (3.2-5.5) g/dl Globulin Albumin/Globulin Ratio Amylase (28-100) U/L Lipase (22-51) U/L Ethyl Alcohol mg/dL Meds: Medications Generic Name Dose Route Start Last Admin Trade Name Maddi PRN Reason Stop Dose Admin Multivitamins/Minerals 10 ml/ 1,011.2 mls @ 999 mls/hr 12/07/19 14:57 15:17 Thiamine HCl 100 mg/ Folic IV 12/07/19 15:57 999 mls/hr Acid 1 mg/ Lactated Ringer's .BOLUS ONE Administration Sodium Chloride 10 ml 12/07/19 14:57 12/07/19 15:17 Saline Flush FLUSH 10 ml ASDIRECTED PRN Administration Keep Vein Open Discontinued Medications Generic Name Dose Route Start Last Admin Trade Name Freq PRN Reason Stop Dose Admin Lorazepam 2 mg 12/07/19 14:58 12/07/19 15:17 Ativan IVPUSH 12/07/19 14:59 2 mg ONETIME ONE Administration Lorazepam 2 mg 12/07/19 15:29 Ativan IVPUSH 12/07/19 15:30 ONETIME ONE - Re-Assessments/Exams Free Text/Narrative Re-Assessment/Exam: 12/07/19 15:[address] Santiago for acute alcohol withdrawal. (Kun Dumont) Free Text/Narrative Re-Assessment/Exam: 12/07/19 15:55 I personally performed or re-performed the physical examination and medical decision making. I have verified all student documentation or findings, including history, physical exam and/or medical decision making. (Kun Dumont) Departure - Departure Time of Disposition: 15:53 Condition: Fair - Discharge Information *PRESCRIPTION DRUG MONITORING PROGRAM REVIEWED*: Not Applicable *COPY OF PRESCRIPTION DRUG MONITORING REPORT IN PATIENT RUDDY: Not Applicable <Leslie Albert - Last Filed: 12/07/19 15:52> <Kun Dumont - Last Filed: 12/07/19 15:55> - Departure Disposition: Admitted As Inpatient 65 Clinical Impression: Alcohol withdrawal Qualifiers: Complication of substance-induced condition: uncomplicated Qualified Code(s): F10.230 - Alcohol dependence with withdrawal, uncomplicated - Discharge Information Forms: ED Department Discharge Sepsis Event Note - Evaluation Sepsis Screening Result: No Definite Risk - Focused Exam Date Exam was Performed: 12/07/19 Time Exam was Performed: 15:52 <Leslie Albert - Last Filed: 12/07/19 15:52> - Focused Exam Date Exam was Performed: 12/07/19 Time Exam was Performed: 15:55 <Kun Dumont - Last Filed: 12/07/19 15:55> - Focused Exam Vital Signs: Vital Signs Temp Pulse Resp BP Pulse Ox 12/07/19 14:45 98.6 F 114 H 26 H 158/100 H 100 - My Orders Last 24 Hours: My Active Orders 12/07/19 14:57 Peripheral IV Care [RC] . DIRECTED DRUG SCREEN URINE BIORAD [URCHEM] Stat UA RFX ANASTASIIA AND CULT IF INDIC [URIN] Stat MVI, Adult with Vitamin K [Infuvite Adult] 10 ml Thiamine [Vitamin B-1] 100 mg Folic Acid 1 mg Lactated Ringers [Ringers, Lactated] 1,000 ml IV .BOLUS Sodium Chloride 0.9% [Saline Flush] 10 ml FLUSH ASDIRECTED PRN Peripheral IV Insertion Adult [OM.PC] Stat - Assessment/Plan Last 24 Hours: My Active Orders 12/07/19 14:57 Peripheral IV Care [RC] . DIRECTED DRUG SCREEN URINE BIORAD [URCHEM] Stat UA RFX ANASTASIIA AND CULT IF INDIC [URIN] Stat MVI, Adult with Vitamin K [Infuvite Adult] 10 ml Thiamine [Vitamin B-1] 100 mg Folic Acid 1 mg Lactated Ringers [Ringers, Lactated] 1,000 ml IV .BOLUS Sodium Chloride 0.9% [Saline Flush] 10 ml FLUSH ASDIRECTED PRN Peripheral IV Insertion Adult [OM.PC] Stat
[2019-12-07 15:39] LABS: ANION GAP 23.4; CHLORIDE,CL 97 mmol/L (101-111); SODIUM,NA 138 mmol/L (135-145)
[2019-12-07 15:41] LABS: PTT,PARTIAL THROMBOPLSTIN TIME 25.6 SEC (22.0-34.0)
[2019-12-07] MEDS ORDERED: Acetaminophen 325 MG Tab PO PRN (17:41)
[2019-12-07] MEDS ORDERED: LORazepam 1 MG Tab PO PRN (17:43)
[2019-12-07] MEDS ORDERED: Sodium Chloride 0.9% 10 ML Syringe FLUSH PRN (17:43)
--- NOTE | 2019-12-07 18:15 | PCM.HP ---
H&P History of Present Illness - General Date of Service: 12/07/19 Admit Problem/Dx: Admission Diagnosis/Problem Admission Diagnosis/Problem Alcohol withdrawal delirium Source of Information: Patient History Limitations: Reports: No Limitations - History of Present Illness Initial Comments - Free Text/Narative: 34 yo with PMH alcohol abuse disorder, alcohol liver disease who presents with generalized weakness and alcohol intoxication. Patient was recently in detox and was getting alcohol cessation when he relapsed in the last few days due to domestic issues (divorce proceedings). His last drink was last night, he drank half a bottle of rum Comes to the hospital today with generalized weakness and feeling of unease. No nausea or vomiting, no CP, no SOB, no abd pain, no leg swelling In the ED, Mg was 1.3, Alcohol level was 187. LFTs were elevated in keeping with his known alcohol liver disease - Related Data Allergies/Adverse Reactions: Allergies Allergy/AdvReac Type Severity Reaction Status Date / Time No Known Allergies Allergy Verified 12/07/19 15:20 Home Medications: Home Meds Metoprolol Tartrate 12.5 mg PO BID 10/10/19 [History] Multivitamin [Multi-Vitamin Daily] 1 tab PO DAILY 10/10/19 [History] Folic Acid 1 tab PO DAILY 10 Days #10 tab 10/11/19 [Rx] Thiamine [Vitamin B-1] 100 mg PO DAILY #30 tab 11/21/19 [Rx] Past Medical History - Past Health History Medical/Surgical History: Denies Medical/Surgical History HEENT History: Reports: None Cardiovascular History: Reports: Hypertension Respiratory History: Reports: None Gastrointestinal History: Reports: Other (See Below) Other Gastrointestinal History: ulcerative as child - no recent issues Genitourinary History: Reports: None Musculoskeletal History: Reports: Other (See Below) Other Musculoskeletal History: sees chiropractor for neck and back pain Neurological History: Reports: Seizure Other Neuro History: ETOH withdrawl seizure Psychiatric History: Reports: Addiction, Anxiety Other Psychiatric History: daily drinker of alcohol, 1/2-1 liter per day Endocrine/Metabolic History: Reports: None Hematologic History: Reports: None Immunologic History: Reports: None Oncologic (Cancer) History: Reports: None Dermatologic History: Reports: None - Infectious Disease History Infectious Disease History: Reports: None - Past Surgical History Head Surgeries/Procedures: Reports: None Other GI Surgeries/Procedures: Colitis and colon surgery Social & Family History - Family History Family Medical History: Noncontributory - Tobacco Use Smoking Status *Q: Never Smoker - Caffeine Use Caffeine Use: Reports: Coffee, Soda - Alcohol Use Days Per Week of Alcohol Use: 7 Number of Drinks Per Day: 8 Total Drinks Per Week: 56 Date of Last Drink: 12/06/19 Time of Last Drink: 23:30 - Recreational Drug Use Recreational Drug Use: No H&P Review of Systems - Review of Systems: Review Of Systems: See Below General: Reports: Weakness HEENT: Reports: No Symptoms Pulmonary: Reports: No Symptoms Cardiovascular: Reports: No Symptoms Gastrointestinal: Reports: No Symptoms Genitourinary: Reports: No Symptoms Musculoskeletal: Reports: No Symptoms Skin: Reports: No Symptoms Psychiatric: Reports: No Symptoms Neurological: Reports: No Symptoms Exam - Exam Exam: See Below - Vital Signs Vital Signs: Last Vital Signs Temp 37.1 C 12/07/19 16:24 Pulse 102 H 12/07/19 16:24 Resp 17 12/07/19 16:24 BP 142/96 H 12/07/19 16:24 Pulse Ox 98 12/07/19 16:24 Weight: 89.176 kg - Exam General: Alert, Oriented HEENT: Conjunctiva Clear Neck: Supple, Trachea Midline Lungs: Clear to Auscultation, Normal Respiratory Effort Cardiovascular: Regular Rate, Regular Rhythm GI/Abdominal Exam: Normal Bowel Sounds, Soft, Non-Tender Extremities: No Pedal Edema - Patient Data Lab Results Last 24 hrs: Laboratory Results - last 24 hr 12/07/19 12/07/19 12/07/19 Range/Units 15:09 15:09 15:09 WBC 4.2 L (5.0-10.0) 10^3/uL RBC 5.05 (4.6-6.2) 10^6/uL Hgb 15.5 (14.0-18.0) g/dL Hct 43.8 (40.0-54.0) % MCV 86.7 (80-100) fL MCH 30.7 (27.0-34.0) pg MCHC 35.4 H (33.0-35.0) g/dL Plt Count 59 L (150-450) 10^3/uL Neut % (Auto) 73.8 (42.2-75.2) % Lymph % (Auto) 17.4 L (20.5-50.1) % [place] % (Auto) 7.6 (2-8) % Eos % (Auto) 0.5 L (1.0-3.0) % Baso % (Auto) 0.7 (0.0-1.0) % PT 11.4 (9.0-12.0) SEC INR 1.1 (0.9-1.2) APTT 25.6 (22.0-34.0) SEC Sodium 138 (135-145) mmol/L Potassium 3.4 L (3.6-5.0) mmol/L Chloride 97 L (101-111) mmol/L Carbon Dioxide 21.0 (21.0-31.0) mmol/L Anion Gap 23.4 BUN 8 (7-18) mg/dL Creatinine 0.9 (0.6-1.3) mg/dL Est Cr Clr Drug Dosing 103.38 mL/min Estimated GFR (MDRD) > 60 BUN/Creatinine Ratio 8.88 Glucose 94 (74-105) mg/dL Calcium 9.1 (8.4-10.2) mg/dl Magnesium 1.3 L (1.8-2.5) mg/dL Total Bilirubin 1.7 H (0.2-1.0) mg/dL AST 429 H (10-42) IU/L ALT 194 H (10-60) IU/L Alkaline Phosphatase 81 (42-121) IU/L Ammonia (11-35) umol/L Total Protein 8.4 H (6.7-8.2) g/dl Albumin 4.7 (3.2-5.5) g/dl Globulin 3.7 Albumin/Globulin Ratio 1.27 Amylase 108 H (28-100) U/L Lipase 56 H (22-51) U/L Ethyl Alcohol 187 mg/dL 12/07/19 Range/Units 15:09 WBC (5.0-10.0) 10^3/uL RBC (4.6-6.2) 10^6/uL Hgb (14.0-18.0) g/dL Hct (40.0-54.0) % MCV (80-100) fL MCH (27.0-34.0) pg MCHC (33.0-35.0) g/dL Plt Count (150-450) 10^3/uL Neut % (Auto) (42.2-75.2) % Lymph % (Auto) (20.5-50.1) % [place] % (Auto) (2-8) % Eos % (Auto) (1.0-3.0) % Baso % (Auto) (0.0-1.0) % PT (9.0-12.0) SEC INR (0.9-1.2) APTT (22.0-34.0) SEC Sodium (135-145) mmol/L Potassium (3.6-5.0) mmol/L Chloride (101-111) mmol/L Carbon Dioxide (21.0-31.0) mmol/L Anion Gap BUN (7-18) mg/dL Creatinine (0.6-1.3) mg/dL Est Cr Clr Drug Dosing mL/min Estimated GFR (MDRD) BUN/Creatinine Ratio Glucose (74-105) mg/dL Calcium (8.4-10.2) mg/dl Magnesium (1.8-2.5) mg/dL Total Bilirubin (0.2-1.0) mg/dL AST (10-42) IU/L ALT (10-60) IU/L Alkaline Phosphatase (42-121) IU/L Ammonia 31 (11-35) umol/L Total Protein (6.7-8.2) g/dl Albumin (3.2-5.5) g/dl Globulin Albumin/Globulin Ratio Amylase (28-100) U/L Lipase (22-51) U/L Ethyl Alcohol mg/dL Result Diagrams: 12/07/19 15:09 12/07/19 15:09 Problem List Initiated/Reviewed/Updated: Yes Orders Last 24hrs: Active Orders 24 hr Category Date Time Status Admission Diagnosis [ADT] Routine ADT 12/07/19 15:58 Ordered Patient Status [ADT] Routine ADT 12/07/19 17:43 Active Ambulate [RC] ASDIRECTED Care 12/07/19 17:43 Active Height and Weight [RC] DAILY Care 12/07/19 17:43 Active Oxygen Therapy [RC] PRN Care 12/07/19 17:43 Active Peripheral IV Care [RC] . DIRECTED Care 12/07/19 17:43 Active Up With Assistance [RC] ASDIRECTED Care 12/07/19 17:43 Active VTE/DVT Education [RC] PER UNIT ROUTINE Care 12/07/19 17:43 Active Vital Signs [RC] Q4H Care 12/07/19 17:43 Active Regular Diet [DIET] Diet 12/07/19 Dinner Active BASIC METABOLIC PANEL,BMP [CHEM] AM Lab 12/08/19 05:11 Ordered BASIC METABOLIC PANEL,BMP [CHEM] AM Lab 12/09/19 05:11 Ordered BASIC METABOLIC PANEL,BMP [CHEM] AM Lab 12/10/19 05:11 Ordered CBC W/O DIFF,HEMOGRAM [HEME] AM Lab 12/08/19 05:11 Ordered CBC W/O DIFF,HEMOGRAM [HEME] AM Lab 12/09/19 05:11 Ordered CBC W/O DIFF,HEMOGRAM [HEME] AM Lab 12/10/19 05:11 Ordered DRUG SCREEN URINE BIORAD [URCHEM] Stat Lab 12/07/19 14:57 Ordered MAGNESIUM [CHEM] AM Lab 12/08/19 05:11 Ordered MAGNESIUM [CHEM] AM Lab 12/09/19 05:11 Ordered MAGNESIUM [CHEM] AM Lab 12/10/19 05:11 Ordered PHOSPHORUS [CHEM] AM Lab 12/08/19 05:11 Ordered PHOSPHORUS [CHEM] AM Lab 12/09/19 05:11 Ordered PHOSPHORUS [CHEM] AM Lab 12/10/19 05:11 Ordered UA RFX ANASTASIIA AND CULT IF INDIC [URIN] Stat Lab 12/07/19 14:57 Ordered Acetaminophen [Tylenol] Med 12/07/19 17:41 Active 650 mg PO Q4H PRN Folic Acid Med 12/08/19 09:00 Active 1 mg PO DAILY LORazepam [Ativan] Med 12/07/19 17:43 Active See Protocol IVPUSH TITRATE PRN LORazepam [Ativan] Med 12/07/19 17:43 Active See Protocol PO TITRATE PRN Magnesium Sulfate/D5W [Magnesium Sulfate in D5W 100 Med 12/07/19 17:41 Active Premix] 1 gm Premix Bag 1 bag IV ONETIME Metoprolol Tartrate [Lopressor] Med 12/07/19 21:00 Active 12.5 mg PO BID Multivitamin [Multi-Vitamin Daily] Med 12/08/19 09:00 Ordered 1 tab PO DAILY Ondansetron [Zofran] Med 12/07/19 17:41 Active 4 mg IV Q4H PRN Sodium Chloride 0.9% [Saline Flush] Med 12/07/19 14:57 Active 10 ml FLUSH ASDIRECTED PRN Sodium Chloride 0.9% [Saline Flush] Med 12/07/19 17:43 Active 10 ml FLUSH ASDIRECTED PRN Sodium Chloride 0.9% [Saline Flush] Med 12/07/19 17:43 Active 10 ml FLUSH ASDIRECTED PRN Thiamine [Vitamin B-1] Med 12/07/19 17:45 Active 100 mg PO DAILY Peripheral IV Insertion Adult [OM.PC] Routine Oth 12/07/19 17:43 Ordered Peripheral IV Insertion Adult [OM.PC] Stat Oth 12/07/19 14:57 Ordered Saline Lock Insert [OM.PC] Routine Oth 12/07/19 17:43 Ordered Resuscitation Status Routine Resus Stat 12/07/19 17:43 Ordered Medication Orders Acetaminophen (Tylenol) 650 mg PO Q4H PRN PRN Reason: Pain/Fever Folic Acid (Folic Acid) 1 mg PO DAILY [facility] Magnesium Sulfate/Dextrose 1 (gm/ Premix) 100 mls @ 100 mls/hr IV ONETIME ONE Stop: 12/07/19 18:40 Lorazepam (Ativan) 0 mg PO TITRATE PRN; Protocol PRN Reason: Withdrawal Symptoms Lorazepam (Ativan) 0 mg IVPUSH TITRATE PRN; Protocol PRN Reason: Withdrawal Symptoms Metoprolol Tartrate (Lopressor) 12.5 mg PO BID [facility] Non-Formulary Medication (Multivitamin [Multi-Vitamin Daily]) 1 tab PO DAILY [facility] Ondansetron HCl (Zofran) 4 mg IV Q4H PRN PRN Reason: Nausea/Vomiting Sodium Chloride (Saline Flush) 10 ml FLUSH ASDIRECTED PRN PRN Reason: Keep Vein Open Last Admin: 12/07/19 15:17 Dose: 10 ml Sodium Chloride (Saline Flush) 10 ml FLUSH ASDIRECTED PRN PRN Reason: Keep Vein Open Sodium Chloride (Saline Flush) 10 ml FLUSH ASDIRECTED PRN PRN Reason: Keep Vein Open Thiamine HCl (Vitamin B-1) 100 mg PO DAILY [facility] Assessment/Plan Comment:: Alcohol abuse disorder Alcohol intoxication Concern for developing alcohol withdrawal -monitor on [place] protocol -PRN zofran for nausea, emesis -PRN ativan per [place] score -IVF hydration - consult for detox Hypomagnesemia -2/2 alcoholism -replenish magnesium -recheck tomorrow morning Hypokalemia -replenish K+ -recheck tomorrow morning Alcohol liver disease Thrombocytopenia 2/2 alcoholism/liver disease -elevated LFTs, AST > AST -normal Albumin, INR -follow up with the GI clinic DVT ppx SCDs no chemoppx due to liver disease Code status FC
[2019-12-07] MEDS: LORazepam 2 MG/ML SDV IVPUSH PRN ×4 (18:39→23:27)
[2019-12-07] MEDS: Thiamine 100 MG Tab PO SCH (18:40)
[2019-12-07] MEDS: Metoprolol Tartrate 25 MG Tab PO SCH (22:01)
[2019-12-08] MEDS: LORazepam 2 MG/ML SDV IVPUSH PRN ×8 (03:01→21:53)
[2019-12-08 06:55] LABS: ANION GAP 16.5; CHLORIDE,CL 95 mmol/L (101-111); SODIUM,NA 134 mmol/L (135-145)
[2019-12-08] MEDS: Ondansetron 4 MG/2 ML SDV IV PRN ×2 (08:02→20:17)
[2019-12-08] MEDS: Multivitamins,Therapeutic Tab PO SCH (09:05)
[2019-12-08] MEDS: Thiamine 100 MG Tab PO SCH (09:05)
[2019-12-08] MEDS: Folic Acid 1 MG Tab PO SCH (09:05)
[2019-12-08] MEDS: Metoprolol Tartrate 25 MG Tab PO SCH ×2 (09:06→21:20)
[2019-12-08] MEDS ORDERED: Potassium Chloride 10 MEQ Tab.ER PO ONE (10:05)
--- NOTE | 2019-12-08 10:25 | PCM.PN ---
- General Info Date of Service: 12/08/19 Admission Dx/Problem (Free Text): Admission Diagnosis/Problem Admission Diagnosis/Problem Alcohol withdrawal delirium Subjective Update: Patient seen and examined Had an episode of vomiting this morning Complains of nausea CIWA score was 18 this morning Received multiple doses of ativan last night Functional Status: Reports: Pain Controlled - Review of Systems General: Reports: No Symptoms HEENT: Reports: No Symptoms Pulmonary: Reports: No Symptoms Cardiovascular: Reports: No Symptoms Gastrointestinal: Reports: Nausea, Vomiting Genitourinary: Reports: No Symptoms Musculoskeletal: Reports: No Symptoms Skin: Reports: No Symptoms Neurological: Reports: No Symptoms - Patient Data Vitals - Most Recent: Last Vital Signs Temp 36.9 C 12/08/19 07:18 Pulse 96 12/08/19 09:06 Resp 18 12/08/19 07:18 BP 148/96 H 12/08/19 09:06 Pulse Ox 98 12/08/19 07:18 Weight - Most Recent: 88.995 kg I&O - Last 24 Hours: Intake & Output 12/07/19 12/08/19 12/08/19 22:59 06:59 14:59 Intake Total 440 800 Balance 440 800 Lab Results Last 24 Hours: Laboratory Results - last 24 hr 12/07/19 12/07/19 12/07/19 Range/Units 15:09 15:09 15:09 WBC 4.2 L (5.0-10.0) 10^3/uL RBC 5.05 (4.6-6.2) 10^6/uL Hgb 15.5 (14.0-18.0) g/dL Hct 43.8 (40.0-54.0) % MCV 86.7 (80-100) fL MCH 30.7 (27.0-34.0) pg MCHC 35.4 H (33.0-35.0) g/dL Plt Count 59 L (150-450) 10^3/uL Neut % (Auto) 73.8 (42.2-75.2) % Lymph % (Auto) 17.4 L (20.5-50.1) % [place] % (Auto) 7.6 (2-8) % Eos % (Auto) 0.5 L (1.0-3.0) % Baso % (Auto) 0.7 (0.0-1.0) % PT 11.4 (9.0-12.0) SEC INR 1.1 (0.9-1.2) APTT 25.6 (22.0-34.0) SEC Sodium 138 (135-145) mmol/L Potassium 3.4 L (3.6-5.0) mmol/L Chloride 97 L (101-111) mmol/L Carbon Dioxide 21.0 (21.0-31.0) mmol/L Anion Gap 23.4 BUN 8 (7-18) mg/dL Creatinine 0.9 (0.6-1.3) mg/dL Est Cr Clr Drug Dosing 103.38 mL/min Estimated GFR (MDRD) > 60 BUN/Creatinine Ratio 8.88 Glucose 94 (74-105) mg/dL Calcium 9.1 (8.4-10.2) mg/dl Phosphorus (2.5-4.6) mg/dL Magnesium 1.3 L (1.8-2.5) mg/dL Total Bilirubin 1.7 H (0.2-1.0) mg/dL AST 429 H (10-42) IU/L ALT 194 H (10-60) IU/L Alkaline Phosphatase 81 (42-121) IU/L Ammonia (11-35) umol/L Total Protein 8.4 H (6.7-8.2) g/dl Albumin 4.7 (3.2-5.5) g/dl Globulin 3.7 Albumin/Globulin Ratio 1.27 Amylase 108 H (28-100) U/L Lipase 56 H (22-51) U/L Ethyl Alcohol 187 mg/dL 12/07/19 12/08/19 12/08/19 Range/Units 15:09 05:55 05:55 WBC 4.6 L (5.0-10.0) 10^3/uL RBC 4.83 (4.6-6.2) 10^6/uL Hgb 14.9 (14.0-18.0) g/dL Hct 42.7 (40.0-54.0) % MCV 88.4 (80-100) fL MCH 30.8 (27.0-34.0) pg MCHC 34.9 (33.0-35.0) g/dL Plt Count 48 L* (150-450) 10^3/uL Neut % (Auto) (42.2-75.2) % Lymph % (Auto) (20.5-50.1) % [place] % (Auto) (2-8) % Eos % (Auto) (1.0-3.0) % Baso % (Auto) (0.0-1.0) % PT (9.0-12.0) SEC INR (0.9-1.2) APTT (22.0-34.0) SEC Sodium 134 L (135-145) mmol/L Potassium 3.5 L (3.6-5.0) mmol/L Chloride 95 L (101-111) mmol/L Carbon Dioxide 26.0 (21.0-31.0) mmol/L Anion Gap 16.5 BUN 8 (7-18) mg/dL Creatinine 0.7 (0.6-1.3) mg/dL Est Cr Clr Drug Dosing 132.92 mL/min Estimated GFR (MDRD) > 60 BUN/Creatinine Ratio Glucose 99 (74-105) mg/dL Calcium 9.1 (8.4-10.2) mg/dl Phosphorus 2.1 L (2.5-4.6) mg/dL Magnesium 1.5 L (1.8-2.5) mg/dL Total Bilirubin (0.2-1.0) mg/dL AST (10-42) IU/L ALT (10-60) IU/L Alkaline Phosphatase (42-121) IU/L Ammonia 31 (11-35) umol/L Total Protein (6.7-8.2) g/dl Albumin (3.2-5.5) g/dl Globulin Albumin/Globulin Ratio Amylase (28-100) U/L Lipase (22-51) U/L Ethyl Alcohol mg/dL Med Orders - Current: Current Medications Acetaminophen (Tylenol) 650 mg PO Q4H PRN PRN Reason: Pain/Fever Folic Acid (Folic Acid) 1 mg PO DAILY [facility] Last Admin: 12/08/19 09:05 Dose: 1 mg Magnesium Sulfate/Dextrose 1 (gm/ Premix) 100 mls @ 100 mls/hr IV ONETIME ONE Stop: 12/08/19 11:04 Lorazepam (Ativan) 0 mg PO TITRATE PRN; Protocol PRN Reason: Withdrawal Symptoms Lorazepam (Ativan) 0 mg IVPUSH TITRATE PRN; Protocol PRN Reason: Withdrawal Symptoms Last Admin: 12/08/19 07:58 Dose: 2 mg Metoprolol Tartrate (Lopressor) 12.5 mg PO BID [facility] Last Admin: 12/08/19 09:06 Dose: 12.5 mg Multivitamins (Thera) 1 each PO DAILY [facility] Last Admin: 12/08/19 09:05 Dose: 1 each Ondansetron HCl (Zofran) 4 mg IV Q4H PRN PRN Reason: Nausea/Vomiting Last Admin: 12/08/19 08:02 Dose: 4 mg Sodium Chloride (Saline Flush) 10 ml FLUSH ASDIRECTED PRN PRN Reason: Keep Vein Open Last Admin: 12/07/19 18:39 Dose: 10 ml Sodium Chloride (Saline Flush) 10 ml FLUSH ASDIRECTED PRN PRN Reason: Keep Vein Open Sodium Chloride (Saline Flush) 10 ml FLUSH ASDIRECTED PRN PRN Reason: Keep Vein Open Thiamine HCl (Vitamin B-1) 100 mg PO DAILY [facility] Last Admin: 12/08/19 09:05 Dose: 100 mg Discontinued Medications Multivitamins/Minerals 10 ml/Thiamine HCl 100 mg/ Folic Acid 1 mg/ Lactated Ringer's 1,011.2 mls @ 999 mls/hr IV .BOLUS ONE Stop: 12/07/19 15:57 Last Admin: 12/07/19 15:17 Dose: 999 mls/hr Magnesium Sulfate/Dextrose 1 (gm/ Premix) 100 mls @ 100 mls/hr IV ONETIME ONE Stop: 12/07/19 18:40 Last Admin: 12/07/19 18:42 Dose: 100 mls/hr Lorazepam (Ativan) 2 mg IVPUSH ONETIME ONE Stop: 12/07/19 14:59 Last Admin: 12/07/19 15:17 Dose: 2 mg Lorazepam (Ativan) 2 mg IVPUSH ONETIME ONE Stop: 12/07/19 15:30 Last Admin: 12/07/19 16:04 Dose: 2 mg Potassium Chloride (Klor-Con 10) 40 meq PO ONETIME ONE Stop: 12/08/19 10:06 - Exam General: Alert, Oriented HEENT: Pupils Equal, Pupils Reactive Neck: Supple Lungs: Clear to Auscultation, Normal Respiratory Effort Cardiovascular: Regular Rate, Regular Rhythm GI/Abdominal Exam: Normal Bowel Sounds, Soft, Non-Tender Extremities: No Pedal Edema Sepsis Event Note - Evaluation Sepsis Screening Result: No Definite Risk - Focused Exam Vital Signs: Vital Signs Temp Pulse Pulse Resp BP BP Pulse Ox 12/08/19 09:06 96 148/96 H 12/08/19 07:18 36.9 C 96 18 148/96 H 98 12/08/19 04:00 37.0 C 95 18 120/67 97 12/08/19 00:00 37.2 C 100 18 126/78 97 Date Exam was Performed: 12/08/19 Time Exam was Performed: 10:22 - Problem List Review Problem List Initiated/Reviewed/Updated: Yes - My Orders Last 24 Hours: My Active Orders 12/07/19 17:41 Acetaminophen [Tylenol] 650 mg PO Q4H PRN Ondansetron [Zofran] 4 mg IV Q4H PRN 12/07/19 17:43 Patient Status [ADT] Routine Ambulate [RC] ASDIRECTED Height and Weight [RC] 0600 Oxygen Therapy [RC] PRN Peripheral IV Care [RC] Up With Assistance [RC] ASDIRECTED VTE/DVT Education [RC] PER UNIT ROUTINE Vital Signs [RC] 00,04,08,12,16,20 LORazepam [Ativan] See Protocol IVPUSH TITRATE PRN LORazepam [Ativan] See Protocol PO TITRATE PRN Sodium Chloride 0.9% [Saline Flush] 10 ml FLUSH ASDIRECTED PRN Sodium Chloride 0.9% [Saline Flush] 10 ml FLUSH ASDIRECTED PRN Peripheral IV Insertion Adult [OM.PC] Routine Saline Lock Insert [OM.PC] Routine Resuscitation Status Routine 12/07/19 17:45 Thiamine [Vitamin B-1] 100 mg PO DAILY 12/07/19 21:00 Metoprolol Tartrate [Lopressor] 12.5 mg PO BID 12/07/19 Dinner Regular Diet [DIET] 12/08/19 09:00 Folic Acid 1 mg PO DAILY Multivitamins,Therapeutic [Thera] 1 each PO DAILY 12/08/19 10:05 Magnesium Sulfate/D5W [Magnesium Sulfate in D5W 100 Premix] 1 gm Premix Bag 1 bag IV ONETIME 12/09/19 05:11 BASIC METABOLIC PANEL,BMP [CHEM] AM CBC W/O DIFF,HEMOGRAM [HEME] AM MAGNESIUM [CHEM] AM PHOSPHORUS [CHEM] AM 12/10/19 05:11 BASIC METABOLIC PANEL,BMP [CHEM] AM CBC W/O DIFF,HEMOGRAM [HEME] AM MAGNESIUM [CHEM] AM PHOSPHORUS [CHEM] AM - Plan Plan:: Alcohol abuse disorder Alcohol withdrawal syndrome -CIWA 18 this morning -monitor on CIWA protocol -PRN zofran for nausea, emesis -PRN ativan per CIWA score -IVF hydration - consult for detox Hypomagnesemia -2/2 alcoholism -replenish magnesium -recheck tomorrow morning Hypokalemia -replenish K+ -recheck tomorrow morning Alcohol liver disease Thrombocytopenia 2/2 alcoholism/liver disease -elevated LFTs, AST > AST -normal Albumin, INR -follow up with the GI clinic DVT ppx SCDs no chemoppx due to thrombocytopenia Code status FC
[2019-12-08] MEDS: Sodium Chloride 0.9% 10 ML Syringe FLUSH PRN ×2 (11:56→14:29)
[2019-12-08] MEDS ORDERED: Haloperidol Lactate 5 MG/ML SDV IVPUSH ONE (22:40)
[2019-12-09] MEDS: LORazepam 2 MG/ML SDV IVPUSH PRN ×9 (00:11→23:54)
[2019-12-09 07:00] LABS: ANION GAP 16.4; CHLORIDE,CL 97 mmol/L (101-111); SODIUM,NA 134 mmol/L (135-145)
[2019-12-09] MEDS ORDERED: Potassium Chloride 10 MEQ Tab.ER PO ONE (09:30)
[2019-12-09] MEDS: Thiamine 100 MG Tab PO SCH (10:31)
[2019-12-09] MEDS: Folic Acid 1 MG Tab PO SCH (10:32)
[2019-12-09] MEDS: Metoprolol Tartrate 25 MG Tab PO SCH ×2 (10:32→20:09)
[2019-12-09] MEDS: Multivitamins,Therapeutic Tab PO SCH (10:32)
--- NOTE | 2019-12-09 10:53 | PCM.PN ---
- General Info Date of Service: 12/09/19 Admission Dx/Problem (Free Text): Admission Diagnosis/Problem Admission Diagnosis/Problem Alcohol withdrawal delirium Subjective Update: Patient seen and examined Had high CIWA scores last night Received multiple doses of ativan last night CIWA scores are much better this morning No new complaints - Review of Systems General: Reports: Other (alcohol withdrawal) HEENT: Reports: No Symptoms Pulmonary: Reports: No Symptoms Cardiovascular: Reports: No Symptoms Gastrointestinal: Reports: No Symptoms Genitourinary: Reports: No Symptoms Musculoskeletal: Reports: No Symptoms Skin: Reports: No Symptoms Neurological: Reports: No Symptoms - Patient Data Vitals - Most Recent: Last Vital Signs Temp 36.8 C 12/09/19 08:00 Pulse 93 12/09/19 10:32 Resp 18 12/09/19 08:00 BP 138/92 H 12/09/19 10:32 Pulse Ox 93 L 12/09/19 08:00 Weight - Most Recent: 88.995 kg I&O - Last 24 Hours: Intake & Output 12/08/19 12/09/19 12/09/19 21:59 06:59 14:59 Intake Total Balance Lab Results Last 24 Hours: Laboratory Results - last 24 hr 12/09/19 12/09/19 Range/Units 06:10 06:10 WBC 5.6 (5.0-10.0) 10^3/uL RBC 4.88 (4.6-6.2) 10^6/uL Hgb 14.9 (14.0-18.0) g/dL Hct 43.1 (40.0-54.0) % MCV 88.3 (80-100) fL MCH 30.5 (27.0-34.0) pg MCHC 34.6 (33.0-35.0) g/dL Plt Count 43 L* (150-450) 10^3/uL Sodium 134 L (135-145) mmol/L Potassium 3.4 L (3.6-5.0) mmol/L Chloride 97 L (101-111) mmol/L Carbon Dioxide 24.0 (21.0-31.0) mmol/L Anion Gap 16.4 BUN 9 (7-18) mg/dL Creatinine 0.7 (0.6-1.3) mg/dL Est Cr Clr Drug Dosing 132.92 mL/min Estimated GFR (MDRD) > 60 Glucose 93 (74-105) mg/dL Calcium 9.5 (8.4-10.2) mg/dl Phosphorus 3.0 (2.5-4.6) mg/dL Magnesium 1.6 L (1.8-2.5) mg/dL Med Orders - Current: Current Medications Acetaminophen (Tylenol) 650 mg PO Q4H PRN PRN Reason: Pain/Fever Folic Acid (Folic Acid) 1 mg PO DAILY [facility] Last Admin: 12/09/19 10:32 Dose: 1 mg Lorazepam (Ativan) 0 mg PO TITRATE PRN; Protocol PRN Reason: Withdrawal Symptoms Lorazepam (Ativan) 0 mg IVPUSH TITRATE PRN; Protocol PRN Reason: Withdrawal Symptoms Last Admin: 12/09/19 08:04 Dose: 3 mg Metoprolol Tartrate (Lopressor) 12.5 mg PO BID [facility] Last Admin: 12/09/19 10:32 Dose: 12.5 mg Multivitamins (Thera) 1 each PO DAILY [facility] Last Admin: 12/09/19 10:32 Dose: 1 each Ondansetron HCl (Zofran) 4 mg IV Q4H PRN PRN Reason: Nausea/Vomiting Last Admin: 12/08/19 20:17 Dose: 4 mg Sodium Chloride (Saline Flush) 10 ml FLUSH ASDIRECTED PRN PRN Reason: Keep Vein Open Thiamine HCl (Vitamin B-1) 100 mg PO DAILY [facility] Last Admin: 12/09/19 10:31 Dose: 100 mg Discontinued Medications Diazepam (Valium) 5 mg IVPUSH ONETIME ONE Stop: 12/09/19 03:05 Last Admin: 12/09/19 03:20 Dose: 5 mg Haloperidol Lactate (Haldol) 5 mg IVPUSH ONETIME ONE Stop: 12/08/19 22:41 Last Admin: 12/08/19 22:51 Dose: 5 mg Multivitamins/Minerals 10 ml/Thiamine HCl 100 mg/ Folic Acid 1 mg/ Lactated Ringer's 1,011.2 mls @ 999 mls/hr IV .BOLUS ONE Stop: 12/07/19 15:57 Last Admin: 12/07/19 15:17 Dose: 999 mls/hr Magnesium Sulfate/Dextrose 1 (gm/ Premix) 100 mls @ 100 mls/hr IV ONETIME ONE Stop: 12/07/19 18:40 Last Admin: 12/07/19 18:42 Dose: 100 mls/hr Magnesium Sulfate/Dextrose 1 (gm/ Premix) 100 mls @ 100 mls/hr IV ONETIME ONE Stop: 12/08/19 11:04 Last Admin: 12/08/19 11:53 Dose: 100 mls/hr Magnesium Sulfate/Dextrose 1 (gm/ Premix) 100 mls @ 100 mls/hr IV ONETIME ONE Stop: 12/09/19 10:29 Last Admin: 12/09/19 10:33 Dose: 100 mls/hr Lorazepam (Ativan) 2 mg IVPUSH ONETIME ONE Stop: 12/07/19 14:59 Last Admin: 12/07/19 15:17 Dose: 2 mg Lorazepam (Ativan) 2 mg IVPUSH ONETIME ONE Stop: 12/07/19 15:30 Last Admin: 12/07/19 16:04 Dose: 2 mg Potassium Chloride (Klor-Con 10) 40 meq PO ONETIME ONE Stop: 12/08/19 10:06 Last Admin: 12/08/19 11:53 Dose: 40 meq Potassium Chloride (Klor-Con 10) 40 meq PO ONETIME ONE Stop: 12/09/19 09:31 Last Admin: 12/09/19 10:31 Dose: 40 meq Sodium Chloride (Saline Flush) 10 ml FLUSH ASDIRECTED PRN PRN Reason: Keep Vein Open Last Admin: 12/08/19 14:29 Dose: 10 ml Sodium Chloride (Saline Flush) 10 ml FLUSH ASDIRECTED PRN PRN Reason: Keep Vein Open - Exam General: Alert, Oriented HEENT: Pupils Equal Neck: Supple Lungs: Clear to Auscultation, Normal Respiratory Effort Cardiovascular: Regular Rate, Regular Rhythm GI/Abdominal Exam: Normal Bowel Sounds, Soft, Non-Tender Extremities: Normal Inspection, Non-Tender, No Pedal Edema Sepsis Event Note - Evaluation Sepsis Screening Result: No Definite Risk - Focused Exam Vital Signs: Vital Signs Temp Pulse Pulse Resp BP BP Pulse Ox 12/09/19 10:32 93 138/92 H 12/09/19 08:00 36.8 C 93 18 138/92 H 93 L 12/09/19 05:07 81 16 105/85 97 12/09/19 04:00 80 20 140/84 95 12/09/19 03:45 71 20 146/85 H 94 L 12/09/19 03:36 37.2 C 71 20 125/88 98 Date Exam was Performed: 12/09/19 Time Exam was Performed: 10:52 - Problem List Review Problem List Initiated/Reviewed/Updated: Yes - My Orders Last 24 Hours: My Active Orders 12/08/19 09:00 Folic Acid 1 mg PO DAILY Multivitamins,Therapeutic [Thera] 1 each PO DAILY 12/10/19 05:11 BASIC METABOLIC PANEL,BMP [CHEM] AM CBC W/O DIFF,HEMOGRAM [HEME] AM MAGNESIUM [CHEM] AM PHOSPHORUS [CHEM] AM - Plan Plan:: Alcohol abuse disorder Alcohol withdrawal syndrome -monitor on CIWA protocol -PRN zofran for nausea, emesis -PRN ativan per CIWA score -IVF hydration - consult for detox Hypomagnesemia -2/2 alcoholism -replenish magnesium -recheck tomorrow morning Hypokalemia -replenish K+ -recheck tomorrow morning Alcohol liver disease Thrombocytopenia 2/2 alcoholism/liver disease -elevated LFTs, AST > AST -normal Albumin, INR -follow up with the GI clinic DVT ppx SCDs no chemoppx due to thrombocytopenia Code status FC
[2019-12-09] MEDS: Sodium Chloride 0.9% 10 ML Syringe FLUSH PRN ×4 (16:32→23:54)
[2019-12-10] MEDS ORDERED: Haloperidol Lactate 5 MG/ML SDV IVPUSH ONE (00:12)
[2019-12-10] MEDS ORDERED: Haloperidol Lactate 5 MG/ML SDV ONE (00:15)
[2019-12-10] MEDS: LORazepam 2 MG/ML SDV IVPUSH PRN ×3 (01:03→03:44)
--- NOTE | 2019-12-10 03:19 | PCM.DCSUM1 ---
Discharge Summary - Hospital Course Free Text/Narrative:: 34 yo with PMH alcohol abuse disorder, alcohol liver disease who presents with generalized weakness and alcohol intoxication. Patient was recently in detox and was getting alcohol cessation when he relapsed in the last few days due to domestic issues (divorce proceedings). His last drink was last night, he drank half a bottle of rum. Comes to the hospital today with generalized weakness and feeling of unease. No nausea or vomiting, no CP, no SOB, no abd pain, no leg swelling In the ED, Mg was 1.3, Alcohol level was 187. LFTs were elevated in keeping with his known alcohol liver disease. Patient was monitored on the CIWA protocol. Electrolytes were replenished both IV and orally. He was having high CIWA scores and requiring multiple doses of ativan to control symptoms. Due to high CIWA scores, and nursing requirements for higher level of care and ICU level of sedation, he was transferred to [facility] for further care. Diagnosis: Stroke: No - Discharge Data Discharge Date: 12/10/19 Discharge Disposition: DC/Tfer to Acute Hospital 02 Condition: Good - Referral to Home Health Primary Care Physician: PCP Unobtainable - Discharge Plan *PRESCRIPTION DRUG MONITORING PROGRAM REVIEWED*: Not Applicable *COPY OF PRESCRIPTION DRUG MONITORING REPORT IN PATIENT RUDDY: Not Applicable Home Medications: Home Meds Metoprolol Tartrate 12.5 mg PO BID 10/10/19 [History] Multivitamin [Multi-Vitamin Daily] 1 tab PO DAILY 10/10/19 [History] Folic Acid 1 tab PO DAILY 10 Days #10 tab 10/11/19 [Rx] Thiamine [Vitamin B-1] 100 mg PO DAILY #30 tab 11/21/19 [Rx] Forms: ED Department Discharge - Discharge Summary/Plan Comment DC Time >30 min.: Yes - General Info Date of Service: 12/10/19 Admission Dx/Problem (Free Text: Admission Diagnosis/Problem Admission Diagnosis/Problem Alcohol withdrawal delirium Subjective Update: Patient seen and examined with hospital fence erector supervisor, charge nurse and bedside nurse at bedside No nausea or vomiting Having intermittently severe agitation, hallucinations Nursing staff complain that they are unable to care for him at [facility] level of care - Review of Systems General: Reports: No Symptoms HEENT: Reports: No Symptoms Pulmonary: Reports: No Symptoms Cardiovascular: Reports: No Symptoms Gastrointestinal: Reports: No Symptoms Genitourinary: Reports: No Symptoms Musculoskeletal: Reports: No Symptoms Skin: Reports: No Symptoms Neurological: Reports: Tremors, Other (hallucinations) Psychiatric: Reports: Hallucinations - Patient Data Vitals - Most Recent: Last Vital Signs Temp 36.6 C 12/10/19 02:42 Pulse 75 12/10/19 02:42 Resp 16 12/10/19 02:42 BP 122/82 12/10/19 02:42 Pulse Ox 97 12/10/19 02:42 Weight - Most Recent: 86.273 kg I&O - Last 24 hours: Intake & Output 12/09/19 12/09/19 12/10/19 14:59 22:59 06:59 Intake Total 350 740 300 Balance 350 740 300 Lab Results - Last 24 hrs: Laboratory Results - last 24 hr 12/09/19 12/09/19 Range/Units 06:10 06:10 WBC 5.6 (5.0-10.0) 10^3/uL RBC 4.88 (4.6-6.2) 10^6/uL Hgb 14.9 (14.0-18.0) g/dL Hct 43.1 (40.0-54.0) % MCV 88.3 (80-100) fL MCH 30.5 (27.0-34.0) pg MCHC 34.6 (33.0-35.0) g/dL Plt Count 43 L* (150-450) 10^3/uL Sodium 134 L (135-145) mmol/L Potassium 3.4 L (3.6-5.0) mmol/L Chloride 97 L (101-111) mmol/L Carbon Dioxide 24.0 (21.0-31.0) mmol/L Anion Gap 16.4 BUN 9 (7-18) mg/dL Creatinine 0.7 (0.6-1.3) mg/dL Est Cr Clr Drug Dosing 132.92 mL/min Estimated GFR (MDRD) > 60 Glucose 93 (74-105) mg/dL Calcium 9.5 (8.4-10.2) mg/dl Phosphorus 3.0 (2.5-4.6) mg/dL Magnesium 1.6 L (1.8-2.5) mg/dL Med Orders - Current: Current Medications Acetaminophen (Tylenol) 650 mg PO Q4H PRN PRN Reason: Pain/Fever Folic Acid (Folic Acid) 1 mg PO DAILY [facility] Last Admin: 12/09/19 10:32 Dose: 1 mg Lorazepam (Ativan) 0 mg PO TITRATE PRN; Protocol PRN Reason: Withdrawal Symptoms Lorazepam (Ativan) 0 mg IVPUSH TITRATE PRN; Protocol PRN Reason: Withdrawal Symptoms Last Admin: 12/10/19 02:12 Dose: 3 mg Metoprolol Tartrate (Lopressor) 12.5 mg PO BID [facility] Last Admin: 12/09/19 20:09 Dose: 12.5 mg Multivitamins (Thera) 1 each PO DAILY [facility] Last Admin: 12/09/19 10:32 Dose: 1 each Ondansetron HCl (Zofran) 4 mg IV Q4H PRN PRN Reason: Nausea/Vomiting Last Admin: 12/08/19 20:17 Dose: 4 mg Sodium Chloride (Saline Flush) 10 ml FLUSH ASDIRECTED PRN PRN Reason: Keep Vein Open Last Admin: 12/09/19 23:54 Dose: 10 ml Thiamine HCl (Vitamin B-1) 100 mg PO DAILY [facility] Last Admin: 12/09/19 10:31 Dose: 100 mg Discontinued Medications Diazepam (Valium) 5 mg IVPUSH ONETIME ONE Stop: 12/09/19 03:05 Last Admin: 12/09/19 03:20 Dose: 5 mg Haloperidol Lactate (Haldol) 5 mg IVPUSH ONETIME ONE Stop: 12/08/19 22:41 Last Admin: 12/08/19 22:51 Dose: 5 mg Haloperidol Lactate (Haldol) 5 mg IVPUSH ONETIME ONE Stop: 12/10/19 00:13 Last Admin: 12/10/19 00:23 Dose: 5 mg Haloperidol Lactate (Haldol) Confirm Administered Dose 5 mg .ROUTE .STK-MED ONE Stop: 12/10/19 00:16 Last Admin: 12/10/19 00:26 Dose: Not Given Multivitamins/Minerals 10 ml/Thiamine HCl 100 mg/ Folic Acid 1 mg/ Lactated Ringer's 1,011.2 mls @ 999 mls/hr IV .BOLUS ONE Stop: 12/07/19 15:57 Last Admin: 12/07/19 15:17 Dose: 999 mls/hr Magnesium Sulfate/Dextrose 1 (gm/ Premix) 100 mls @ 100 mls/hr IV ONETIME ONE Stop: 12/07/19 18:40 Last Admin: 12/07/19 18:42 Dose: 100 mls/hr Magnesium Sulfate/Dextrose 1 (gm/ Premix) 100 mls @ 100 mls/hr IV ONETIME ONE Stop: 12/08/19 11:04 Last Admin: 12/08/19 11:53 Dose: 100 mls/hr Magnesium Sulfate/Dextrose 1 (gm/ Premix) 100 mls @ 100 mls/hr IV ONETIME ONE Stop: 12/09/19 10:29 Last Admin: 12/09/19 10:33 Dose: 100 mls/hr Lorazepam (Ativan) 2 mg IVPUSH ONETIME ONE Stop: 12/07/19 14:59 Last Admin: 12/07/19 15:17 Dose: 2 mg Lorazepam (Ativan) 2 mg IVPUSH ONETIME ONE Stop: 12/07/19 15:30 Last Admin: 12/07/19 16:04 Dose: 2 mg Potassium Chloride (Klor-Con 10) 40 meq PO ONETIME ONE Stop: 12/08/19 10:06 Last Admin: 12/08/19 11:53 Dose: 40 meq Potassium Chloride (Klor-Con 10) 40 meq PO ONETIME ONE Stop: 12/09/19 09:31 Last Admin: 12/09/19 10:31 Dose: 40 meq Sodium Chloride (Saline Flush) 10 ml FLUSH ASDIRECTED PRN PRN Reason: Keep Vein Open Last Admin: 12/08/19 14:29 Dose: 10 ml Sodium Chloride (Saline Flush) 10 ml FLUSH ASDIRECTED PRN PRN Reason: Keep Vein Open - Exam General: Reports: Alert, Oriented HEENT: Reports: Pupils Equal Neck: Reports: Supple Lungs: Reports: Clear to Auscultation, Normal Respiratory Effort Cardiovascular: Reports: Regular Rate, Regular Rhythm GI/Abdominal Exam: Normal Bowel Sounds, Soft, Non-Tender Extremities: Normal Inspection, Normal Range of Motion, Non-Tender, No Pedal Edema Neurological: Reports: No New Focal Deficit
== END 2019-12-10 03:45 ==
LOC: DL.ED 14:44 → UNDOADMIN 15:58 → DL.MS 15:58 → DL.ED 16:03 → DL.MS 17:43 → INTOOBSV 17:43
PROVIDERS: ADMIT Hospitalist; ATTEND Hospitalist
DX: F10.239 Alcohol dependence with withdrawal, unspecified (principal); F10.229 Alcohol dependence with intoxication, unspecified; K70.9 Alcoholic liver disease, unspecified; I10 Essential (primary) hypertension; E83.42 Hypomagnesemia; E87.6 Hypokalemia; Y90.6 Blood alcohol level of 120-199 mg/100 ml; Z79.899 Other long term (current) drug therapy
CPT/HCPCS: 36415; 80048; 80053; 80307; 82140; 82150; 83690; 83735; 84100; 85025; 85027; 85610; 85730; 96365; 96366; 96367; 96375; 96376; 99285; A9270; G0378; J1630; J2060; J2405; J3360; J3411; J3475; J7120; J3490